=== PATIENT | male | born 1960 | race Caucasian/White ===

== ENCOUNTER 2019-12-02 20:06 | Inpatient (IN) ==
[2019-12-02] MEDS ORDERED: NITROGLYCERIN 2% OINTMENT 30GM TUBE EXT STA (20:30)
--- NOTE | 2019-12-02 20:33 | Emergency Department Note ---
History of Present Illness General Chief complaint: Cardiac Assessment Stated complaint: CHEST DISCOMFORT,SOB,HIGH BLOOD PRESSURE Time Seen by Provider: 12/02/19 20:22 Source: patient, family (), RN notes reviewed and old records reviewed Mode of arrival: ambulatory Limitations: no limitations History of Present Illness Provider complaint: Chest pain Onset (ago): week(s) 2 Location: chest Radiation: back Severity: moderate Pain Consistency: + now resolved Current Pain Intensity: 0 Quality: + aching Relieved By: + immobilization Exacerbated By: + movement Associated symptoms: no cough, no diaphoresis, no fever/chills, no headaches, no malaise, no nausea/vomiting, no seizure and no shortness of breath Treatments prior to arrival: aspirin This is a 59-year-old male who presents emergency department with a two-week history of chest pressure pain with exertion. Patient first noticed it approximately 2 weeks ago when he was mowing his lawn. He reports he began having chest pain when that was happening. He noticed when he stopped the chest pain went away. He has had several more episodes including 3 today. Upon arrival to the emergency department the patient has no pain. He went to [facility] however they did not have an EKG machine and sent him to the emergency department. He describes the pain as a burning sensation with radiati on into his back. He reports rest makes the pain go away. Home Medications Home Medications Medication Instructions Recorded Confirmed Type Dynamine Suppliment 1 dose PO DIRECTED PRN 12/02/19 12/02/19 History Essential Oils 1 applic TOPICAL DIRECTED PRN 12/02/19 12/02/19 History activated charcoal [CharcoCaps] 0 mg PO DAILY PRN 12/02/19 12/02/19 History multivitamin 1 tab PO DAILY 12/02/19 12/02/19 History Allergies Allergy/AdvReac Type Severity Reaction Status Date / Time No Known Allergies Allergy Verified 12/02/19 20:59 Past Med/Surg History Social History Preferred Language: Syriac Communication Ability: Effective Server Administrator Required: No Beliefs That Will Affect Care: None Current Living Situation: Spouse Other Information That Helps Us Care for You: No Feels Safe at Home: Yes Safety Concerns: Feels Safe At This Time Smoking Status: Never smoker Do You Dip or Chew Tobacco: No ; Second Hand Exposure: No ; Hx Alcohol Use: No Hx Substance Use: No Review of Systems A total of 10 systems reviewed and were otherwise negative Physical Exam Vital Signs Vital Signs - 24 hr 12/02/19 20:14 Temperature 37.1 C Temperature Source Oral Pulse Rate 97 H Respiratory Rate 18 Respiratory Effort / Characteristics Normal for Patient Blood Pressure 202/106 H Blood Pressure Mean 138 Blood Pressure Position Sitting Pulse Oximetry 97 Oxygen Delivery Method Room Air Sepsis Recent Fever Within 48 Hours No Sepsis New/Unexplained Change in Mental Status No Sepsis Action Taken by Nursing No Action Required VITAL SIGNS - Vital signs and nursing notes were reviewed. GENERAL - 59-year-old male appearing stated age who is in no acute distress. Communicates well with provider and answers questions appropriately. SKIN - Without rashes. HEAD - NC/AT. EYES - PERRL with EOMI bilaterally. Sclera anicteric. Palpebral conjunctiva pink and moist with no injection noted. EARS - No deformities of external structures noted on gross examination bilaterally. No pain elicited with palpation of the tragus bilaterally. External auditory canals without discharge or otorrhea. Tympanic membranes pearly lewis without retraction or bulging. No fluid or purulent material visualized behind the TM. Handle of malleus, umbo, cone of light, pars tensa/flaccid all easily visualized. NOSE - Midline and without cyanosis. No epistaxis or purulent drainage noted. Septum midline without deviation or septal hematoma noted. MOUTH/OROPHARYNX - Without perioral cyanosis. Buccal mucosa pink and moist and without leukoplakia. Tongue midline with equal elevation of palate bilaterally. No tonsillar hypertrophy, erythema, or exudates noted. dentition noted. NECK - Neck with FROM. Supple to palpation. lymphadenopathy noted. No nuchal rigidity. LUNGS - Chest wall symmetric without accessory muscle use, intercostals retractions, or central cyanosis. Normal vesicular breath sounds CTA B/L. No whe ezes, rales, or rhonchi appreciated. CARDIAC - RRR with S1/S2. No murmur, rubs, or gallops appreciated. ABDOMEN - Abdominal contour without pulsations or visible masses. BS normoactive all four quadrants. No tenderness, palpable masses, hepatosplenomegaly, or ascites noted. EXTREMITIES - No clubbing or peripheral cyanosis. No pretibial edema present. +3/5 radial, posterior tibial, and dorsalis pedis pulses palpated throughout. +5/5 strength noted in UE/LE bilaterally. NEUROLOGIC - Cranial nerves II through XII grossly intact. Sensory intact to light touch throughout. Patellar reflexes +2/4. PSYCH - A&Ox3 and cooperates fully with examiner. Pt is very pleasant and interacts well with examiner. Course Administered Medications Aspirin (Ecotrin Ectab) 81 mg PO QAM [facility] Stop: 01/02/20 08:59 Last Admin: 12/04/19 09:09 Dose: 81 mg Documented by: [id number] Admin: 12/03/19 08:09 Dose: 81 mg Documented by: [id number] Atorvastatin Calcium (Lipitor) 40 mg PO QA [facility] Stop: 01/03/20 08:59 Last Admin: 12/04/19 09:08 Dose: 40 mg Documented by: [id number] Metoprolol Tartrate (Lopressor) 12.5 mg PO BID [facility] Stop: 01/02/20 20:59 Last Admin: 12/04/19 09:30 Dose: 12.5 mg Documented by: [id number] Admin: 12/03/19 20:10 Dose: 12.5 mg Documented by: [id number] Ticagrelor (Brilinta) 90 mg PO BID [facility] Stop: 01/02/20 20:59 Last Admin: 12/04/19 09:08 Dose: 90 mg Documented by: [id number] Admin: 12/03/19 20:09 Dose: 90 mg Documented by: [id number] Discontinued Medications Aspirin (Aspirin) 162 mg PO NOW STA Stop: 12/02/19 22:16 Last Admin: 12/02/19 22:42 Dose: 162 mg Documented by: [id number] Enoxaparin Sodium (Lovenox) 80 mg SQ BID [facility] Stop: 01/02/20 10:59 Last Admin: 12/03/19 11:45 Dose: 80 mg Documented by: [id number] Enoxaparin Sodium (Lovenox) 70 mg SQ ONE ONE Stop: 12/03/19 01:01 Last Admin: 12/03/19 01:53 Dose: 70 mg Documented by: [id number] Eptifibatide (Integrilin (Correctional Counselor Use Only)) Confirm Administered Dose 20 mg IV .STK-MED ONE Stop: 12/03/19 13:43 Last Admin: 12/03/19 14:05 Dose: 6.8 ml Documented by: [id number] Eptifibatide (Integrilin (Correctional Counselor Use Only)) Confirm Administered Dose 20 mg IV .STK-MED ONE Stop: 12/03/19 14:12 Last Admin: 12/03/19 14:31 Dose: 6.8 ml Documented by: [id number] Eptifibatide (Integrilin (Correctional Counselor Use Only)) Confirm Administered Dose 75 mg .ROUTE .STK-MED ONE Stop: 12/03/19 14:23 Last Increment: 12/03/19 14:31 Dose: 12 mg Documented by: [id number] Fentanyl Citrate (Fentanyl Citrate) Confirm Administered Dose 100 mcg .ROUTE .STK-MED ONE Stop: 12/03/19 12:41 Last Increment: 12/03/19 14:05 Dose: 75 mcg Documented by: [id number] Heparin Sodium (Porcine) (Heparin Iv Bolus (Correctional Counselor Use Only)) Confirm Administered Dose 10,000 units .ROUTE .STK-MED ONE Stop: 12/03/19 12:41 Last Admin: 12/03/19 14:05 Dose: Not Given Documented by: [id number] Heparin Sodium/Sodium Chloride (Heparin/Nss 1000 Unit/500ml Flush Bag) Confirm Administered Dose 3,000 units IV .STK-MED ONE Stop: 12/03/19 12:41 Last Admin: 12/03/19 13:02 Dose: 3,000 units Documented by: [id number] Eptifibatide (Integrilin) 75 mg in 100 mls @ 11.392 mls/hr IV .[id number] [facility]; Protocol Stop: 12/03/19 19:00 Last Infusion: 12/03/19 19:07 Dose: 0 mcg/kg/min, 0 mls/hr Documented by: [id number] Cosigned by: [id number] Admin: 12/03/19 15:32 Dose: 2 mcg/kg/min, 11.4 mls/hr Documented by: [id number] Cosigned by: [id number] Sodium Chloride (Nss 1000ml) 1,000 mls @ 100 mls/hr IV .Q10H [facility] Stop: 12/03/19 19:59 Last Infusion: 12/03/19 22:52 Dose: 0 mls/hr Documented by: [id number] Admin: 12/03/19 15:32 Dose: 100 mls/hr Documented by: [id number] Metoprolol Succinate (Toprol Xl) 50 mg PO NOW [facility] Stop: 12/02/19 22:16 Last Admin: 12/02/19 22:42 Dose: 50 mg Documented by: [id number] Metoprolol Succinate (Toprol Xl) 50 mg PO [facility] Stop: 01/02/20 08:59 Last Admin: 12/03/19 08:07 Dose: 50 mg Documented by: [id number] Midazolam HCl (Versed) Confirm Administered Dose 2 mg .ROUTE .STK-MED ONE Stop: 12/03/19 12:41 Last Admin: 12/03/19 14:05 Dose: 2 mg Documented by: [id number] Miscellaneous (Stop Order) 1 ea N/A ONE ONE Stop: 12/03/19 19:01 Last Admin: 12/03/19 19:07 Dose: 1 ea Documented by: [id number] Nicardipine HCl (Cardene) Confirm Administered Dose 25 mg .ROUTE .STK-MED ONE Stop: 12/03/19 12:41 Last Admin: 12/03/19 13:02 Dose: 25 mg Documented by: [id number] Nitroglycerin (Nitro-Bid 2%) 1 inch EXT NOW [facility] Stop: 12/02/19 20:31 Last Admin: 12/02/19 20:50 Dose: 1 inch Documented by: [id number] Nitroglycerin/Dextrose (Nitroglycerin/D5w 100 Mcg/Ml 20ml Syringe) Confirm Administered Dose 2,000 mcg .ROUTE .STK-MED ONE Stop: 12/03/19 12:50 Last Admin: 12/03/19 13:03 Dose: 2,000 mcg Documented by: [id number] Potassium Chloride (Klor-Con M20) 40 meq PO NOW [facility] Stop: 12/02/19 21:19 Last Admin: 12/02/19 21:51 Dose: Not Given Documented by: [id number] Ticagrelor (Brilinta) Confirm Administered Dose 180 mg PO .STK-MED ONE Stop: 12/03/19 14:21 Last Admin: 12/03/19 14:31 Dose: 180 mg Documented by: [id number] Medical Decision Making Differential Diagnosis Cardiac ischemia, aortic dissection, pulmonary embolism, pneumothorax, pneumonia, pericarditis, myocarditis, esophageal rupture, GERD, cholecystitis, pancreatitis, musculoskeletal, as well as other pathologies. Medical Records Attestation: I reviewed the patient's medical records. Home Medications Current Medication List: was personally reviewed by me Laboratory Data Attestation: I reviewed the patient's lab results. Result diagrams: 12/02/19 20:40 12/03/19 04:04 Lab Results 12/02/19 12/02/19 12/02/19 Range/Units 20:40 20:40 20:40 WBC 8.64 (4.8-10.8) K/uL RBC 5.11 (4.7-6.1) M/uL Hgb 15.2 (14.0-18.0) g/dL Hct 44.4 (42-52) % MCV 86.9 (80-100) fL MCH 29.7 (25-34) pg MCHC 34.2 (32-36) g/dL RDW Std Deviation 40.4 (36.4-46.3) fL RDW Coeff of Mary 12.6 (11.5-14.5) % Plt Count 138 (130-400) K/uL MPV 12.8 H (7.4-10.4) fL Immature Gran % (Auto) 0.2 % Neut % (Auto) 73.1 % Lymph % (Auto) 17.4 % [place] % (Auto) 9.0 % Eos % (Auto) 0.2 % Baso % (Auto) 0.1 % Neut # (Auto) 6.31 (1.4-6.5) K/uL Lymph # (Auto) 1.50 (1.2-3.4) K/uL [place] # (Auto) 0.78 H (0.11-0.59) K/uL Eos # (Auto) 0.02 (0-0.5) K/uL Baso # (Auto) 0.01 (0-0.2) K/uL Immature Gran # (Auto) 0.02 (0.00-0.02) K/uL PT 10.5 (9.0-12.0) Seconds INR 1.0 (0.9-1.1) APTT 26.5 (21.0-31.0) Seconds PTT Ratio 0.9 Sodium 139 (136-145) mmol/L Potassium 3.4 L (3.5-5.1) mmol/L Chloride 107 (98-107) mmol/L Carbon Dioxide 25 (21-32) mmol/L Anion Gap 8.0 (3-11) BUN 13 (7-18) mg/dl Creatinine 1.08 (0.6-1.4) mg/dl Est Cr Clr Drug Dosing 68.1 ml/min Est GFR ( Amer) 87.8 Est GFR (Non-Af Amer) 75.8 BUN/Creatinine Ratio 12.4 (10-20) Glucose 108 H (70-99) mg/dl Calcium 9.2 (8.5-10.1) mg/dl Total Bilirubin 0.6 (0.2-1) mg/dl AST 23 (15-37) U/L ALT 42 (12-78) U/L Alkaline Phosphatase 80 (45-117) U/L Total Creatine Kinase 154 (39-308) U/L CK-MB (CK-2) 1.6 (0.5-3.6) ng/ml CK/CKMB % Calc 1.0 (0-3.0) Troponin I 0.201 H* (0-0.045) ng/ml Total Protein 7.8 (6.4-8.2) gm/dl Albumin 4.5 (3.4-5.0) gm/dl Globulin 3.3 (2.5-4.0) gm/dl Albumin/Globulin Ratio 1.3 (0.9-2) Lipase 124 (73-393) U/L Imaging Data Radiologist's Impression: [place], [place] [phone] XRay Report Patient: CHAS FRANKLIN Date: 12/02/19 MR#: [id number] [facility] Acct ID:[id number]: Date: [address] [place] [address] Zip: [place] [address] Age: 59Location: ED Sex: M Room/Bed: Att Phy:Diagnosis: CHEST DISCOMFORT,SOB,HIGH BLOOD PRESSURE Grace Phy: PCP,NOService Date: 12/02/19 Fam Phy:Interpreting Phy: Heriberto Rivera MD Admit Phy: Ordering Phy: Sampson Kim MD cc: ~ SINGLE VIEW CHEST CLINICAL HISTORY: Atypical chest pain. FINDINGS: An AP, portable, upright chest radiograph is obtained. No prior studies are available for comparison at the time of dictation. The cardiomediastinal silhouette is unremarkable. The lungs and pleural spaces are clear. No pneumothorax is seen. The bony thorax is grossly intact. IMPRESSION: No active disease in the chest. ACT 112: Negative or not required by law. Electronically signed by: Heriberto Rivera M.D. 12/02/2019 8:58 PM Dictated: 12/02/192056 Transcribed: 12/02/192056 ECG Data Attestation: I personally reviewed and interpreted this ECG as follows: Indication: + chest pain Rate (beats per minute): 99 Rhythm: + sinus with SA ECG Intervals/blocks: + Right Bundle branch block and + Normal QT-c (467) ECG [place]: + Normal ECG ST segments: + ST depression (anterior) Comparison ECG Date: no prior available Additional Comments: Posterior EKG shows a normal sinus rhythm with sinus arrhythmia, nonspecific intraventricular block no ST elevation or depression QTC is 452 ventricular rate is 94. Blood Pressure Blood Pressure Findings: Elevated blood pressure Blood Pressure Disposition: further management by hospitalist [facility] Narrative This is a 59-year-old male who presents emergency department complaining exertional chest pain. Patient is pain-free in the emergency department however his blood pressure is significantly elevated. For this reason he was given both Nitropaste as well as metoprolol. The patient's troponin was also elevated. Due to his multiple risk factors I did discuss the case with the hospitalist service who did agree to admit the patient. Patient was seen and evaluated as above in room B6. Review was performed of nursing notes and vital signs. I did review pertinent previous visits and patient history. After obtaining a thorough history and physical examination the above work up was performed. An order was placed for continuous cardiac monitoring. The monitor shows a rate of 97 with Normal Sinus rhythm. The patient was evaluated during the global COVID-19 pandemic, and that diagnosis was suspected/considered upon their initial presentation. Their ev aluation, treatment and testing was consistent with current guidelines for patients who present with complaints or symptoms that may be related to COVID- 19. Impression & Plan Chest pain, Non-ST elevation [place] (NSTEMI) Discharge Plan Visit Data *Final* Discharge Date/Time: 12/03/19 00:00 Chief Complaint: Cardiac Assessment Stated Complaint: CHEST DISCOMFORT,SOB,HIGH BLOOD PRESSURE ED Provider: Sampson Kim Discharge Problem: Chest pain, Non-ST elevation [place] (NSTEMI) Patient Disposition: Admitted As Inpatient Discharge Instructions Interventions: ED Discharge Assessment Last Done: 12/03/19 00:00 Discharge Problem: Chest pain Qualifiers: Chest pain type: unspecified Qualified Code(s): R07.9 - Chest pain, unspecified
[2019-12-02 20:56] LABS: Basophils # (auto) 0.01 K/uL (0-0.2); Basophils % (auto) 0.1 %; Eosinophils # (auto) 0.02 K/uL (0-0.5); Eosinophils % (auto) 0.2 %; Hematocrit (blood only) 44.4 % (42-52); Hemoglobin 15.2 g/dL (14.0-18.0); Immature Granulocytes # (auto) 0.02 K/uL (0.00-0.02); Immature Granulocytes % (auto) 0.2 %; Lymphocytes % (auto) 17.4 %; Mean Corpuscular Hemoglobin 29.7 pg (25-34); Mean Corpuscular Hgb Conc 34.2 g/dL (32-36); Mean Corpuscular Volume 86.9 fL (80-100); Mean Platelet Volume 12.8 fL (7.4-10.4); Monocytes # (auto) 0.78 K/uL (0.11-0.59); Neutrophils # (auto) 6.31 K/uL (1.4-6.5); Neutrophils % (auto) 73.1 %; Platelet Count 138 K/uL (130-400); RDW Coefficient of Variation 12.6 % (11.5-14.5); RDW Standard Deviation 40.4 fL (36.4-46.3); Red Blood Count 5.11 M/uL (4.7-6.1); White Blood Count 8.64 K/uL (4.8-10.8)
--- NOTE | 2019-12-02 20:59 | XRay Report ---
SINGLE VIEW CHEST CLINICAL HISTORY: Atypical chest pain. FINDINGS: An AP, portable, upright chest radiograph is obtained. No prior studies are available for c omparison at the time of dictation. The cardiomediastinal silhouette is unremarkable. The lungs and pleural spaces are clear. No pneumothorax is seen. The bony thorax is grossly intact. IMPRESSION: No active disease in the chest. ACT 112: Negative or not required by law. Electronically signed by: Heriberto Rivera M.D. 12/02/2019 8:58 PM
[2019-12-02 21:08] LABS: Partial Thromboplastin Ratio 0.9; Partial Thromboplastin Time 26.5 Seconds (21.0-31.0); Prothrombin Time 10.5 Seconds (9.0-12.0)
[2019-12-02 21:17] LABS: Albumin Level 4.5 gm/dl (3.4-5.0); BUN Creatinine Ratio 12.4 (10-20); Calcium 9.2 mg/dl (8.5-10.1); Creatinine Clr Calc Pharmacy 68.1 ml/min; Est GFR (African American) 87.8; Est GFR (Non-African American) 75.8; Potassium 3.4 mmol/L (3.5-5.1)
[2019-12-02] MEDS ORDERED: POTASSIUM CHLORIDE 20 MEQ TABCR PO STA (21:18)
[2019-12-02 21:25] LABS: Albumin Globulin Ratio 1.3 (0.9-2); Bilirubin,Total 0.6 mg/dl (0.2-1); Creatine Kinase MB 1.6 ng/ml (0.5-3.6); Globulin 3.3 gm/dl (2.5-4.0); Total Protein 7.8 gm/dl (6.4-8.2); Troponin I 0.201 ng/ml (0-0.045)
[2019-12-02] MEDS ORDERED: ASPIRIN CHEW 324 MG PO STA (22:15)
[2019-12-02] MEDS ORDERED: METOPROLOL SUCC 50MG EXT REL TAB PO STA (22:15)
--- NOTE | 2019-12-02 22:32 | History & Physical Report ---
Date of Service December 02, 2019 Assessment & Plan (1) NSTEMI (non-ST elevated myocardial infarction): - took 2 baby aspirin prior to arriving in ED; given 124 mg additional aspirin upon arrival. - metoprolol succinate 50 mg in ED; - EKG showing ST segment depressions in V3-V6 - Troponin 0.201 on admission - therapeutic lovenox 1mg/kg - mild hypokalemia at 3.4; repleted with oral potassium - cardiology consult - Exercise stress echo ordered for AM - trending trops - New medications: Daily 81 mg ASA, Metoprolol succ 50 mg daily DVT ppx: therapeutic lovenox FEN/GI: NPO Dispo: PCU Code Status: Full Code History of Present Illness 59 yo M with no PMH presenting to the ED for 2 weeks of worsening chest pain. States the episodes started as being chest discomfort while mowing the lawn and being active, and have progressed to the point of occurring while he is sitting at rest. He denies any radiation of the pain to the left arm, neck or back. He attest to some shortness of breath with the pain and describes the pain as burning in his central chest by his sternum. The episode today occured while he was out camping with friends, and during the event a friend measured his blood pressure and found to be "very elevated" and advised him to come to the ER. Family history significant for multiple first degree family members with HTN, [place], DM2. Pt recently suffered a chainsaw injury to his left knee and hasn't had a Tdap for more than 10 years, will need one on discharge. Primary Care Provider: NO PCP Allergies Allergy/AdvReac Type Severity Reaction Status Date / Time No Known Allergies Allergy Verified 12/02/19 20:59 Home Medications Home Medications Medication Instructions Recorded Confirmed Type Dynamine Suppliment 1 dose PO DIRECTED PRN 12/02/19 12/02/19 History Essential Oils 1 applic TOPICAL DIRECTED PRN 12/02/19 12/02/19 History activated charcoal [CharcoCaps] 0 mg PO DAILY PRN 12/02/19 12/02/19 History multivitamin 1 tab PO DAILY 12/02/19 12/02/19 History Past Med/Surg History Social History Preferred Language: Indonesian Communication Ability: Effective 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 Beliefs That Will Affect Care: None Current Living Situation: Spouse Other Information That Helps Us Care for You: No Feels Safe at Home: Yes Safety Concerns: Feels Safe At This Time Smoking Status: Never smoker Do You Dip or Chew Tobacco: No ; Second Hand Exp osure: No ; Hx Alcohol Use: No Hx Substance Use: No Review of Systems Constitutional: no fever, no chills, no body aches and no fatigue Respiratory: no cough and no dyspnea Cardiovascular: + chest pain and + dyspnea; no edema Gastrointestinal: no abdominal pain, no nausea, no vomiting, no constipation and no diarrhea/loose stools Physical Exam Constitutional: cooperative; no acute distress and not ill appearing Neck: normal visual inspection Respiratory: normal respiratory effort and able to speak in complete sentences; no respiratory distress, no labored breathing, no retractions, no cough and no audible wheezes Auscultation: lungs clear to auscultation bilaterally; no crackles, no rales, no rhonchi and no wheezes Cardiovascular: Rate/Rhythm: regular rate and regular rhythm Heart Sounds: normal S1 and normal S2; no gallop, no murmur and no cardiac rub Vessels: posterior tibial pulses present Extremities: no pedal edema and no edema Gastrointestinal (Abdomen): Inspection/Auscultation: abdomen normal to insp ection and normal bowel sounds; abdomen not distended Percussion/Palpation: abdomen soft; abdomen nontender, no guarding, abdomen not rigid and no abdominal mass Results & Data Results & Data ([facility]) Vital Signs (Past 12 Hours) Vital Signs Temp Pulse Resp BP Pulse Ox 12/02/19 20:30 98 12/02/19 20:14 37.1 C 97 H 18 202/106 H 97 Vital Signs Temp Pulse Pulse Resp BP BP Pulse Ox 12/03/19 00:15 36.8 C 65 18 138/86 98 12/02/19 23:30 62 21 133/87 97 12/02/19 23:00 64 12 144/90 H 98 12/02/19 22:30 76 15 161/100 H 98 12/02/19 22:00 94 H 15 189/117 H 98 12/02/19 21:30 93 H 17 179/102 H 99 12/02/19 21:00 99 H 14 183/104 H 100 12/02/19 20:30 95 H 13 192/135 H 98 12/02/19 20:14 37.1 C 97 H 18 202/106 H 97 Intake and Output 12/02/19 12/02/19 12/03/19 14:59 22:59 06:59 Other: Weight 70.8 kg 71.2 kg Patient Weight 12/03/19 06:59 Weight 71.2 kg Laboratory Results WBC 8.64 K/uL (4.8-10.8) 12/02/19 20:40 RBC 5.11 M/uL (4.7-6.1) 12/02/19 20:40 Hgb 15.2 g/dL (14.0-18.0) 12/02/19 20:40 Hct 44.4 % (42-52) 12/02/19 20:40 MCV 86.9 fL (80-100) 12/02/19 20:40 MCH 29.7 pg (25-34) 12/02/19 20:40 MCHC 34.2 g/dL (32-36) 12/02/19 20:40 RDW Std Deviation 40.4 fL (36.4-46.3) 12/02/19 20:40 RDW Coeff of Mary 12.6 % (11.5-14.5) 12/02/19 20:40 Plt Count 138 K/uL (130-400) 12/02/19 20:40 MPV 12.8 fL (7.4-10.4) H 12/02/19 20:40 Immature Gran % (Auto) 0.2 % 12/02/19 20:40 Neut % (Auto) 73.1 % 12/02/19 20:40 Lymph % (Auto) 17.4 % 12/02/19 20:40 [place] % (Auto) 9.0 % 12/02/19 20:40 Eos % (Auto) 0.2 % 12/02/19 20:40 Baso % (Auto) 0.1 % 12/02/19 20:40 Neut # (Auto) 6.31 K/uL (1.4-6.5) 12/02/19 20:40 Lymph # (Auto) 1.50 K/uL (1.2-3.4) 12/02/19 20:40 [place] # (Auto) 0.78 K/uL (0.11-0.59) H 12/02/19 20:40 Eos # (Auto) 0.02 K/uL (0-0.5) 12/02/19 20:40 Baso # (Auto) 0.01 K/uL (0-0.2) 12/02/19 20:40 Immature Gran # (Auto) 0.02 K/uL (0.00-0.02) 12/02/19 20:40 PT 10.5 Seconds (9.0-12.0) 12/02/19 20:40 INR 1.0 (0.9-1.1) 12/02/19 20:40 APTT 26.5 Seconds (21.0-31.0) 12/02/19 20:40 PTT Ratio 0.9 12/02/19 20:40 Sodium 139 mmol/L (136-145) 12/02/19 20:40 Potassium 3.4 mmol/L (3.5-5.1) L 12/02/19 20:40 Chloride 107 mmol/L (98-107) 12/02/19 20:40 Carbon Dioxide 25 mmol/L (21-32) 12/02/19 20:40 Anion Gap 8.0 (3-11) 12/02/19 20:40 BUN 13 mg/dl (7-18) 12/02/19 20:40 Creatinine 1.08 mg/dl (0.6-1.4) 12/02/19 20:40 Est Cr Clr Drug Dosing 68.1 ml/min 12/02/19 20:40 Est GFR ( Amer) 87.8 12/02/19 20:40 Est GFR (Non-Af Amer) 75.8 12/02/19 20:40 BUN/Creatinine Ratio 12.4 (10-20) 12/02/19 20:40 Glucose 108 mg/dl (70-99) H 12/02/19 20:40 Calcium 9.2 mg/dl (8.5-10.1) 12/02/19 20:40 Total Bilirubin 0.6 mg/dl (0.2-1) 12/02/19 20:40 AST 23 U/L (15-37) 12/02/19 20:40 ALT 42 U/L (12-78) 12/02/19 20:40 Alkaline Phosphatase 80 U/L (45-117) 12/02/19 20:40 Total Creatine Kinase 154 U/L (39-308) 12/02/19 20:40 CK-MB (CK-2) 1.6 ng/ml (0.5-3.6) 12/02/19 20:40 CK/CKMB % Calc 1.0 (0-3.0) 12/02/19 20:40 Troponin I 0.201 ng/ml (0-0.045) H* 12/02/19 20:40 Total Protein 7.8 gm/dl (6.4-8.2) 12/02/19 20:40 Albumin 4.5 gm/dl (3.4-5.0) 12/02/19 20:40 Globulin 3.3 gm/dl (2.5-4.0) 12/02/19 20:40 Albumin/Globulin Ratio 1.3 (0.9-2) 12/02/19 20:40 Lipase 124 U/L (73-393) 12/02/19 20:40 Supervising Physician Co-Signing Physician Notes Attending addendum: I have physically seen this patient, have supervised the medical residents activities, and agree with the H&P unless as otherwise noted. Assessment and Plan: Non-STEMI- The patient will be admitted to telemetry for serial cardiac enzymes, serial EKG's, cardiac rhythm monitoring and a 2-D echocardiogram with Dopplers. Patient reportedly took 2 baby aspirin prior to coming to the ED. Will be given additional 2 baby aspirin now, and then 81 mg every morning. EKG with ST depressions in leads V3-V6 Placed on Nitropaste 1 inch anterior chest wall every 6 hour. Give metoprolol succinate 50 mg p.o. now then [address] on high-dose statin atorvastatin 80 mg daily Heparin per standard protocol, keeping bolus less than 5000. Consult cardiology. Patient will likely need cardiac catheterization. Hypokalemia- Potassium 3.4 upon admission, and will be given Klor-Con 40 mEq p.o. NSS + KCl 20 mEq at 80 mils per hour. Repeat laboratories in a.m. Remaining orders and notations as noted. Resident Activity Tracking Resident Involvement: Resident Care Provided Care Provided: [facility] Medicine
[2019-12-03] MEDS ORDERED: MoRPHine SULFATE 2 MG/ML CARP IV PRN (00:27)
[2019-12-03] MEDS ORDERED: DIPHTHERIA/TETANUS/PERTUSSIS 0.5 ML SYR/VIAL IM ONE (00:27)
[2019-12-03] MEDS ORDERED: ACETAMINOPHEN 325 MG TAB PO PRN (00:27)
[2019-12-03] MEDS ORDERED: ALUMINUM/MAGNESIUM SUSP 30 ML UDC PO PRN (00:27)
[2019-12-03] MEDS ORDERED: NITROGLYCERIN SL 0.4 MG/TAB TAB SL PRN (00:27)
[2019-12-03] MEDS ORDERED: ENOXAPARIN 80 MG/0.8 ML SYR SQ SCH ×2 (00:45→11:00)
[2019-12-03] MEDS ORDERED: ENOXAPARIN 80 MG/0.8 ML SYR SQ ONE (01:00)
[2019-12-03 04:55] LABS: BUN Creatinine Ratio 12.6 (10-20); Calcium 8.5 mg/dl (8.5-10.1); Creatinine Clr Calc Pharmacy 70.7 ml/min; Est GFR (African American) 91.9; Est GFR (Non-African American) 79.3; Potassium 4.1 mmol/L (3.5-5.1)
[2019-12-03] MEDS: METOPROLOL SUCC 50MG EXT REL TAB PO SCH (08:07)
[2019-12-03] MEDS: ASPIRIN 81 MG ECTAB PO SCH (08:09)
--- NOTE | 2019-12-03 12:15 | Cardiology Consultation ---
Date of Consultation December 03, 2019 Assessment & Plan (1) Unstable angina pectoris due to coronary arteriosclerosis: -classic history with dynamic EKG changes and an elevated troponin. -agree with therapeutic Lovenox -agree with metoprolol succinate -urgent cardiac catheterization, Dr. Jefferson aware (2) Hypercholesterolemia: -the would start high-intensity statin History of Present Illness Attending Physician: Mani Colón History of Present Illness Mr. King is a 59-year-old male admitted yesterday with a chest pain syndrome. This consultation was ordered to assist in his cardiac management. Patient claims use in his usual state of health until approximately 2 weeks prior to presentation. While cutting his lawn, he had the abrupt onset of a substernal chest burning and associated shortness of breath. Patient had to stop his activity and sat down to rest. His discomfort resolved after approximately 5 minutes. The patient did well until approximately 1 week prior to presentation when he had a similar episode walking home from work. Again, this resolved with rest. On Thursday of this past week, the patient had another episode while cutting his grass. Yesterday, the patient was at a picnic and had 3 separate episodes of his substernal chest burning with associated shortness of breath. These episodes occurred at rest. He became quite concerned and brought his symptoms the attention of a nurse who was present at the picnic. She checked his blood pressure and found to be 220/110. His heart rate was elevated at approximately 100 beats per minute. He took 2 baby strength aspirin tablets and decided to proceed to the emergency room for further care. Workup in the emergency room noted a mildly elevated troponin 0.201 and his EKG noted significant ST depression in the anterior leads. Hospitalization was recommended. Currently, patient is resting comfortably in bed without complaints. Past medical and surgical history 1. Skin graft, right hand-childhood 2. 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 Mother had bypass surgery performed at the age of 81. A brother had an WI at the age of 57. Review of systems A 10 point review of systems was negative except for that described above. Allergies Allergy/AdvReac Type Severity Reaction Status Date / Time No Known Allergies Allergy Verified 12/02/19 20:59 Home Medications Home Medications Medication Instructions Recorded Confirmed Type Dynamine Suppliment 1 dose PO DIRECTED PRN 12/02/19 12/02/19 History Essential Oils 1 applic TOPICAL DIRECTED PRN 12/02/19 12/02/19 History activated charcoal [CharcoCaps] 0 mg PO DAILY PRN 12/02/19 12/02/19 History multivitamin 1 tab PO DAILY 12/02/19 12/02/19 History Patient History Social History Preferred Language: Persian Communication Ability: Effective Web Marketing Coordinator Required: No Beliefs That Will Affect Care: None Current Living Situation: Spouse Other Information That Helps Us Care for You: No Feels Safe at Home: Yes Safety Concerns: Feels Safe At This Time Smoking Status: Never smoker Do You Dip or Chew Tobacco: No ; Second Hand Exposure: No ; Hx Alcohol Use: No Hx Substance Use: No Physical Exam Physical Exam: In general this is a well-developed well-nourished white male in no acute distress. HEENT exam is negative. Neck is supple with full carotid upstrokes. There are no carotid bruits. Jugular venous pressure is flat at 90. There is no thyromegaly. Cardiovascular exam reveals a regular rhythm with a normal S1 and S2. No S3, S4, or murmurs are noted. Lungs are clear without rales, rhonchi, or wheezes. Abdomen is soft and nontender without bruits. Extremities reveal intact radial artery and posterior tibial pulses bilaterally. There is no peripheral edema. Results & Data ([facility]) Vital Signs (Past 12 Hours) Vital Signs Temp Pulse Resp BP Pulse Ox 12/03/19 11:33 36.5 C 74 18 122/64 93 12/03/19 07:45 36.9 C 63 18 118/74 95 12/03/19 04:00 36.8 C 61 16 126/69 98 12/03/19 00:15 36.8 C 65 18 138/86 98 Laboratory Results CBC notes hemoglobin 15.2, hematocrit 44.4, white count 8.64, and platelet count of 200223. Electrolytes show sodium of 142, potassium 4.1, chloride 110, bicarb 20, BUN 13, creatinine 1.04, a glucose of 100. Initial troponin was 0.201 with a follow-up value of 0.676. LDL cholesterol is 149 with an HDL of 44. Diagnostic Findings Initial EKG notes sinus rhythm with a right bundle-branch block and anterior ST depression. Follow-up tracing notes sinus rhythm with right bundle-branch block and resolution of the anterior ST changes. Chest x-ray shows no acute disease. PG Care Time/CCT Total # of Minutes Spent Total Time Spent with Patient: Total time spent is greater than 50% in coordination of care (as documented) at patient's floor/unit and/or counseling patient: Coding Level of Care Code 88585 Office/OBS Consult Lvl 5 Diagnoses Unstable angina pectoris due to coronary arteriosclerosis I25.110 Hypercholesterolemia E78.00
[2019-12-03] MEDS ORDERED: NiCARDipine HCL INJ 2.5 MG/ML 10 ML AMP ONE (12:40)
[2019-12-03] MEDS ORDERED: MIDAZOLAM HCL 1 MG/ML 2ML VIAL ONE (12:40)
[2019-12-03] MEDS ORDERED: HEPARIN (PORCINE) 1000 UNIT/ML 10 ML (CATH LAB USE ONLY) ONE (12:40)
[2019-12-03] MEDS ORDERED: fentaNYL citrate 100 MCG/2 ML VIAL ONE (12:40)
[2019-12-03] MEDS ORDERED: NITROGLYCERIN/D5W 100MCG/ML 20ML SYR ONE (12:49)
--- NOTE | 2019-12-03 13:02 | Pre Anesthesia Assessment ---
Date of Service December 03, 2019 Pre Sedation Assessment Vital Signs Temp Pulse Pulse Resp BP BP Pulse Ox 12/03/19 11:33 97.7 F 74 18 122/64 93 12/03/19 07:45 98.4 F 63 18 118/74 95 12/03/19 04:00 98.2 F 61 16 126/69 98 12/03/19 00:15 98.2 F 65 18 138/86 98 12/02/19 23:30 62 21 133/87 97 12/02/19 23:00 64 12 144/90 H 98 12/02/19 22:30 76 15 161/100 H 98 12/02/19 22:00 94 H 15 189/117 H 98 12/02/19 21:30 93 H 17 179/102 H 99 12/02/19 21:00 99 H 14 183/104 H 100 12/02/19 20:30 95 H 13 192/135 H 98 12/02/19 20:14 98.8 F 97 H 18 202/106 H 97 Cardiovascular RRR, no murmur, no edema Respiratory normal respiratory effort, lungs clear to auscultation Pre-Sedation Airway Assessment Smoking Status: Never smoker Hx Sleep Apnea: No Hx Difficult Intubation: No Short, Thick Neck: No Thyromental Distance: > or= 3.5 Finger Breadths Oral Cavity: + WNL Mallampati Class: III ASA: ASA3 Procedure Planning Contraindications for Sedation: none Current Medications Reviewed: Yes Notes The planned sedation has been discussed with the patient. Informed Consent was obtained. I have identified the patient, determined the appropriateness of sedation and have assessed the patient immediately prior to the procedure. All medicine(s) and interventions are by my order.
[2019-12-03] MEDS ORDERED: EPTIFIBATIDE 2 MG/ML 10 ML VIAL (CATH LAB USE ONLY) IV ONE ×2 (13:42→14:11)
[2019-12-03] MEDS ORDERED: TICAGRELOR 90 MG TAB PO ONE (14:20)
[2019-12-03] MEDS ORDERED: EPTIFIBATIDE 0.75 MG/ML 75MG VIAL (CATH LAB USE ONLY) ONE (14:22)
--- NOTE | 2019-12-03 14:25 | Post Anesthesia Assessment ---
Date of Service December 03, 2019 Post Sedation Assessment Vital Signs Temp Pulse Pulse Resp BP BP Pulse Ox 12/03/19 11:33 97.7 F 74 18 122/64 93 12/03/19 07:45 98.4 F 63 18 118/74 95 12/03/19 04:00 98.2 F 61 16 126/69 98 12/03/19 00:15 98.2 F 65 18 138/86 98 12/02/19 23:30 62 21 133/87 97 12/02/19 23:00 64 12 144/90 H 98 12/02/19 22:30 76 15 161/100 H 98 12/02/19 22:00 94 H 15 189/117 H 98 12/02/19 21:30 93 H 17 179/102 H 99 12/02/19 21:00 99 H 14 183/104 H 100 12/02/19 20:30 95 H 13 192/135 H 98 12/02/19 20:14 98.8 F 97 H 18 202/106 H 97 Recovery Score Activity: Moves 4 extremities Respiration: Deep Breath/Cough Circulation: +/-20% PreAnes Value Consciousness: Fully Awake Oxygen Saturation: O2 needed for >90% Discharge Sedation Level of Care: Fast Track Phase II Post Sedation Plan On clinical assessment, the patient appears to have tolerated the sedation without complications. Patient is recovering as anticipated. Patient will continue to be monitored by nursing and may be discharged when sedation discharge criteria are met per below protocol. Upon Completions of procedure up to 15 minutes continue every 5 minute vital signs and the P.A.R. score; then discharge to a Phase I or Fast Track to Phase II per the following guidelines: * Discharge Patient to appropriate Phase II area if PAR is 8 or greater or return to pre- procedure baseline. The post - procedure orders will be as directed. * If PAR score is less than 8 or not return to pre-procedure baseline then patient will follow Phase I monitoring till PAR is reached for Phase II. The Phase I may be done in procedure room or may call to secure a Phase I area. * If naloxone or flumazenil are used for reversal, hold in Phase I for continued monitoring from when last reversal dose was given for a minimum of 60 minutes or longer pending the nurse and/or physician discretion of patient condition before discharge to Phase II. Please call the Sedation Physician to re-evaluate and complete post-note for discharge to Phase II area. Do NOT discharge from procedure sedation or Phase 1 until post- sedation evaluation note is complete by procedure /sedation MD Sedation Discharge Instructions to be given to the patient at discharge to home.
--- NOTE | 2019-12-03 14:32 | Electrocardiogram Report ---
Test Reason : Blood Pressure : / mmHG Vent. Rate : 099 BPM Atrial Rate : 099 BPM P-R Int : 118 ms QRS Dur : 128 ms QT Int : 364 ms P-R-T Axes : 067 032 020 degrees QTc Int : 467 ms Normal sinus rhythm with sinus arrhythmia Possible Left atrial enlargement Right bundle branch block Marked ST abnormality, possible anterior subendocardial injury Abnormal ECG No previous ECGs available Confirmed by Mervin Dale ([id number]) on 12/03/2019 2:31:42 PM Referred By: REFERRED SELF Confirmed By:Mervin Dale
--- NOTE | 2019-12-03 14:32 | Electrocardiogram Report ---
Test Reason : Blood Pressure : / mmHG Vent. Rate : 094 BPM Atrial Rate : 094 BPM P-R Int : 118 ms QRS Dur : 130 ms QT Int : 362 ms P-R-T Axes : 078 086 -02 degrees QTc Int : 452 ms Normal sinus rhythm with sinus arrhythmia Right bundle branch block Cannot rule out Septal infarct , age undetermined Abnormal ECG When compared with ECG of 02-DEC-2019 20:17, (unconfirmed) Anterior ST abnormality resolved Confirmed by Mervin Dale ([id number]) on 12/03/2019 2:32:20 PM Referred By: REFERRED SELF Confirmed By:Mervin Dale
--- NOTE | 2019-12-03 14:37 | Cardiac Catheterization ---
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 Cardiac Status Clinical evaluation leading to the procedure CAD Presenation: Non STEMI Anginal Classification: CCS IV Heart Failure: No Cardiogenic Shock within 24 Hours: No Cardiac Arrest within 24 Hours: No Imaging Studies Past 6 Months: Yes Stress Studies Past 6 Months: No Diagnostic Physicians Name: Reynaldo Jefferson MD Status: Urgent Closure Device Percutaneous Entry Location: Radial Closure Device: Radial Band Recommendations: PCI without planned CABG PCI Indication: PCI for high risk Non-TUCKER Lesion Segment Name: Distal RCA Culprit Artery: Yes Stenosis Prior to Rx (%): 95 Chronic Total Occlusion: No IVUS: No FFR: No Pre-Procedure GRABIEL Flow: 3 Previously Treated Lesion: No Lesion Complexity: Non-High/Non-C Lesion Length (mm): 15 Thrombus Present: Yes Bifurcation Lesion: Yes Guidewire Across Lesion: Stenosis Post-Procedure (%): 0 Post-Procedure GRABIEL Flow: 3 Devices(s) Deployed: Yes Yes Lesion #2 Segment Name: Right posterior AV branch Culprit Artery: No Stenosis Prior to Rx (%): 95 Chronic Total Occlusion: No IVUS: No FFR: No Pre-Procedure GRABIEL Flow: 3 Previously Treated Lesion: No Lesion Complexity: Non-High/Non-C Lesion Length (mm): 10 Thrombus Present: No Bifurcation Lesion: No Guidewire Across Lesion: Yes Stenosis Post-Procedure (%): 0 Post-Procedure GRABIEL Flow: 3 Devices(s) Deployed: Yes Intraprocedure Events Significant Disection: No Perforation: No Cardiac Cath Procedure Full Procedure Date December 03, 2019 Pre-Procedure Diagnosis Pre-Procedure Diagnosis: Non STEMI AUC Score AUC Score: 8 Post-Procedure Diagnosis Post-Procedure Diagnosis: Severe CAD, Successful PCI and Normal Intracardiac Pressures Procedure(s) Performed Procedure(s) Performed: Coronary Angiography, Left Heart Cath and Drug Eluting Stent Fingerprint Clerk Reynaldo Jefferson MD Oncology Technician(s) Tim Estimated Blood Loss Estimated Blood Loss: None Medication(s) Medication(s): Fentanyl, Integrilin, Lidocaine 1%, Nicardipine, Nitroglycerin and Versed Medication(s): Lovenox Summary of Findings Indication: High risk NSTEMI Access: 6 Fr right radial artery Catheters: [place], JR4 guide, pigtail Findings: LM -medium caliber vessel, luminal irregularity LAD -medium caliber vessel, calcified 40% proximal disease, 70% mid segment disease at takeoff of first diagonal. Small distal vessel extends to apex and gives off collaterals to occluded small right PDA. Proximal first diagonal with 80% focal stenosis. Small second diagonal occluded and fills retrograde via left to left collaterals Circumflex -small caliber. High first OM with 60 to 70% proximal stenosis. 50% stenosis in small circumflex just after takeoff of OM1. RCA -dominant, large caliber vessel, 95% acute distal RCA stenosis just before takeoff of right PDA, 95% focal stenosis in right posterior AV branch before takeoff of largest right PLB. Diffuse disease in small distal posterior lateral branches. Distal right PDA occluded and fills retrograde via [id number] collaterals LVEDP -13 -- PCI -- Antithrombotic therapy: Therapeutic Lovenox, Integrilin, ticagrelor Procedure: RCA cannulated with JR4 guide Counter Former 50 wire passed across lesion into distal right PLB Pro-water wire placed into right PDA Right posterior AV branch stenosis predilated with 2.5 compliant balloon Distal RCA stenosis predilated with 2.5 compliant balloon Dilated right PAV branch stenosis stented with 2.5 x 12 mm [place] drug-eluting stent Dilated distal RCA stented with 3.5 x 18 mm Larry ending just before takeoff of r ight PDA PAV Stent post-dilated with 2.5 noncompliant balloon Distal RCA stent postdilated with 3.5 NC balloon IC vasodilators administered for spasm Reduce flow in most distal right PLB. Attempted to balloon distal PLB stenosis with 2.0 and 1.5 balloons but unable to pass balloons across stenosis. Post attempt at angioplasty no flow in most distal PLB. Post procedure stents well expanded, GRABIEL-3 flow through stents and into PDA, largest PLB. No evidence of dissection. Arterial Closure: TR band Summary: 1. Severe multivessel coronary artery disease -95% acute distal RCA, 95% focal right posterior AV branch 70% mid LAD at takeoff of first diagonal with 80% proximal stenosis - Small circumflex with 60% proximal OM1 disease 2. Normal intracardiac filling pressure 3. Successful PCI of acute distal RCA stenosis with single drug-eluting stent (3.5 x 18 mm Larry). 4. Successful PCI of right posterior AV branch with single drug-eluting stent (2.5 x 12 mm [place]). Recommendations: To PCU for continued monitoring Continue Integrilin for 4 hours in the setting of reduced flow in small distal most right PLB Loaded with ticagrelor 180 mg in Mall Plant Caretaker Continue dual-antiplatelet therapy for at least 1 year Continue statin, and ASCVD risk factor modification Recommend staged PCI of LAD/diagonal bifurcation at a later date Consult cardiac Rehab Hemodynamics Rest Ao:: 155/77/93 Final Ao: 154/13 LV: 123/70/92 Recommendations Recommendations: PCI without planned CABG Specimens Specimens: None Radiation Exposure (mGy) 2671 Contrast (mls) 100 Fluids (cc crystalloids) Fluids (cc crystalloids): 180 Drains Drains: None Anesthesia Moderate Procedural Complication(s) None Disposition PCU I attest to the content of the Intraoperative Record and any orders documented therein. Any exceptions are noted below. [facility] Card Cath Procedure Codes Cardiac Catheterization Procedure 1: Cardiovascular Cath Procedures: 14619 Coronaries and LHC (+/-LV) Moderate Sedation Procedure 1: Sedation/Anesthesia: 76512 Mod Sedation by the same physician;Init15 Min Child Age 5 & Up Procedure 2: Sedation/Anesthesia: 52142 Mod Sedation by the same physician; Ea [id number] Minutes Stenting Procedure 1: Cardiovascular Stent Procedures: 51589 Perc transcatheter placement of intracoronary stent(s), with ang PG Care Time/CCT Total # of Minutes Spent Total Time Spent with Patient: Total time spent is greater than 50% in coordination of care (as documented) at patient's floor/unit and/or counseling patient:
[2019-12-03] MEDS ORDERED: EPTIFIBATIDE BOLUS/DRIP IV STA (14:49)
[2019-12-03] MEDS ORDERED: STAT IV Infusion **Titration per Protocol STA (14:49)
[2019-12-03] MEDS ORDERED: EPTIFIBATIDE 75 MG/100 ML VIAL IV SCH (15:00)
[2019-12-03] MEDS ORDERED: SODIUM CHLORIDE 0.9% 1000ML 1,000 ML IV SCH (15:00)
[2019-12-03] MEDS: TICAGRELOR 90 MG TAB PO SCH (20:09)
[2019-12-03] MEDS: METOPROLOL TARTRATE 25 MG TAB PO SCH (20:10)
--- NOTE | 2019-12-03 22:47 | Billing Data ---
Date of Service December 03, 2019 Coding Level of Care Code 12063 Initial Inpt Care Lvl 3
--- NOTE | 2019-12-03 23:44 | Hospitalist Progress Note ---
Date of Service December 03, 2019 Assessment & Plan (1) Unstable angina pectoris due to coronary arteriosclerosis: The patient was admitted to telemetry for serial cardiac enzymes, serial EKG's, cardiac rhythm monitoring and a 2-D echocardiogram with Dopplers. Stress echo was cancelled for cardiac cath. Place on high-dose statin atorvastatin 80 mg daily Cath showed the follwing. Severe multivessel coronary artery disease -95% acute distal RCA, 95% focal right posterior AV branch 70% mid LAD at takeoff of first diagonal with 80% proximal stenosis - Small circumflex with 60% proximal OM1 disease 2. Normal intracardiac filling pressure 3. Successful PCI of acute distal RCA stenosis with single drug-eluting stent (3.5 x 18 mm Larry). 4. Successful PCI of right posterior AV branch with single drug-eluting stent (2.5 x 12 mm Larry). Continue Integrilin for 4 hours in the setting of reduced flow in small distal most right PLB Loaded with ticagrelor 180 mg in Engine Head Repairer Continue dual-antiplatelet therapy for at least 1 year Continue statin, and ASCVD risk factor modification Recommend staged PCI of LAD/diagonal bifurcation likely during this hospital stay Hypokalemia- replaced. Admission and Anticipated Discharge Date Admission Date: December 02, 2019 Subjective Patient reports some mild chest discomfort after the procedure. He denies any SOB or nausea, and vomiting. Review of Systems Review of Systems: All systems reviewed & are unremarkable except as noted in HPI & below Physical Exam Physical Exam: Constitutional: cooperative; no acute distress and not ill appearing Neck: normal visual inspection Respiratory: normal respiratory effort and able to speak in complete sentences; no respiratory distress, no labored breathing, no retractions, no cough and no audible wheezes Auscultation: lungs clear to auscultation bilaterally; no crackles, no rales, no rhonchi and no wheezes Cardiovascular: Rate/Rhythm: regular rate and regular rhythm Heart Sounds: normal S1 and normal S2; no gallop, no murmur and no cardiac rub Vessels: posterior tibial pulses present Extremities: no pedal edema and no edema Gastrointestinal (Abdomen): Inspection/Auscultation: abdomen normal to inspection and normal bowel sounds; abdomen not distended Percussion/Palpation: abdomen soft; abdomen nontender, no guarding, abdomen not rigid and no abdominal mass Results & Data Results & Data ([facility]) Vital Signs (Past 12 Hours) Vital Signs Temp Pulse Pulse Resp BP BP Pulse Ox 12/03/19 23:27 36.4 C L 63 17 123/82 97 12/03/19 19:45 36.9 C 54 L 18 166/88 H 98 12/03/19 19:13 37.0 C 54 L 18 153/85 H 98 12/03/19 18:29 56 L 160/88 H 12/03/19 17:30 54 L 169/88 H 12/03/19 16:30 55 L 169/88 H 12/03/19 16:00 56 L 148/90 H 12/03/19 15:30 56 H 148/90 H 12/03/19 15:15 55 L 138/82 12/03/19 15:00 48 L 46 L 159/85 H 12/03/19 14:43 36.7 C 49 L 16 129/74 97 PG Care Time/CCT Total # of Minutes Spent Total Time Spent with Patient: Total time spent is greater than 50% in coordination of care (as documented) at patient's floor/unit and/or counseling patient: Coding Level of Care Code 72723 Subseq Hosp Care Lvl 3 Diagnoses Unstable angina pectoris due to coronary arteriosclerosis I25.110 Time Spent (min) 35
[2019-12-04] MEDS: ATORVASTATIN 40 MG TAB PO SCH (09:08)
[2019-12-04] MEDS: TICAGRELOR 90 MG TAB PO SCH ×2 (09:08→19:48)
[2019-12-04] MEDS: ASPIRIN 81 MG ECTAB PO SCH (09:09)
[2019-12-04] MEDS: METOPROLOL TARTRATE 25 MG TAB PO SCH ×2 (09:30→19:48)
--- NOTE | 2019-12-04 11:13 | Cardiology Progress Note ---
Date of Service December 04, 2019 Assessment & Plan (1) Unstable angina pectoris due to coronary arteriosclerosis: -classic history with rest symptoms, dynamic EKG changes, and an elevated troponin. -LIMA in distal RCA yesterday. -LIMA in right posterior AV branch yesterday. -continue Toprol, Lipitor, Brilinta, and aspirin. (2) CAD (coronary artery disease): -LIMA as described above. -70% mid LAD at the takeoff of D1. -80% proximal D1 stenosis. -staged PCI tomorrow. (3) Hypercholesterolemia: -continue atorvastatin at 40 mg q.h.s. Admission and Anticipated Discharge Date Admission Date: December 02, 2019 Subjective The patient is resting comfortably in bed without complaints of chest pain or dyspnea. He would like to proceed with the LAD PCI tomorrow morning with Dr. Jefferson. Physical Exam Physical Exam: In general this is a well-developed well-nourished white male in no acute distress. HEENT exam is negative. Neck is supple with full carotid upstrokes. There are no carotid bruits. Jugular venous pressure is flat at 90. There is no thyromegaly. Cardiovascular exam reveals a regular rhythm with a normal S1 and S2. No S3, S4, or murmurs are noted. Lungs are clear without rales, rhonchi, or wheezes. Abdomen is soft and nontender without bruits. Extremities reveal intact radial artery and posterior tibial pulses bilaterally. Right wrist is dressed. There is no peripheral edema. Results & Data ([facility]) Vital Signs (Past 12 Hours) Vital Signs Temp Pulse Pulse Resp BP BP Pulse Ox 12/04/19 07:43 36.8 C 64 18 137/82 99 12/04/19 04:00 36.4 C L 60 18 108/55 L 99 12/03/19 23:59 49 L 12/03/19 23:27 36.4 C L 63 17 123/82 97 Diagnostic Findings hospital monitor is benign. PG Care Time/CCT Total # of Minutes Spent Total Time Spent with Patient: Total time spent is greater than 50% in coordination of care (as documented) at patient's floor/unit and/or counseling patient: Coding Level of Care Code 69802 Subseq Hosp Care Lvl 3 Diagnoses Unstable angina pectoris due to coronary arteriosclerosis I25.110 CAD (coronary artery disease) I25.10 Hypercholesterolemia E78.00
--- NOTE | 2019-12-04 22:49 | Hospitalist Progress Note ---
Date of Service December 04, 2019 Assessment & Plan (1) Unstable angina pectoris due to coronary arteriosclerosis: The patient was admitted to telemetry for serial cardiac enzymes, serial EKG's, cardiac rhythm monitoring and a 2-D echocardiogram with Dopplers. Stress echo was cancelled for cardiac cath. Place on high-dose statin atorvastatin 80 mg daily Cath showed the follwing. Severe multivessel coronary artery disease -95% acute distal RCA, 95% focal right posterior AV branch 70% mid LAD at takeoff of first diagonal with 80% proximal stenosis - Small circumflex with 60% proximal OM1 disease 2. Normal intracardiac filling pressure 3. Successful PCI of acute distal RCA stenosis with single drug-eluting stent (3.5 x 18 mm Larry). 4. Successful PCI of right posterior AV branch with single drug-eluting stent (2.5 x 12 mm Larry). 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 Planned for Thursday. Changed the mtoprolol to 12.5 BID. Hypokalemia- replaced. Admission and Anticipated Discharge Date Admission Date: December 02, 2019 Subjective Patient reports doing well. He has no new complaints. Review of Systems Review of Systems: All systems reviewed & are unremarkable except as noted in HPI & below Physical Exam Physical Exam: Constitutional: cooperative; no acute distress and not ill appearing Neck: normal visual inspection Respiratory: normal respiratory effort and able to speak in complete sentences; no respiratory distress, no labored breathing, no retractions, no cough and no audible wheezes Auscultation: lungs clear to auscultation bilaterally; no crackles, no rales, no rhonchi and no wheezes Cardiovascular: Rate/Rhythm: regular rate and regular rhythm Heart Sounds: normal S1 and normal S2; no gallop, no murmur and no cardiac rub Vessels: posterior tibial pulses present Extremities: no pedal edema and no edema Gastrointestinal (Abdomen): Inspection/Auscultation: abdomen normal to inspection and normal bowel sounds; abdomen not distended Percussion/Palpation: abdomen soft; abdomen nontender, no guarding, abdomen not rigid and no abdominal mass Results & Data Results & Data ([facility]) Vital Signs (Past 12 Hours) Vital Signs Temp Pulse Pulse Resp BP Pulse Ox 12/04/19 18:59 36.6 C 57 L 18 130/74 98 12/04/19 15:41 51 L 12/04/19 15:39 37.1 C 54 L 18 118/78 100 12/04/19 14:40 65 12/04/19 11:39 36.6 C 97 H 18 125/81 97 PG Care Time/CCT Total # of Minutes Spent Total Time Spent with Patient: Total time spent is greater than 50% in coordina tion of care (as documented) at patient's floor/unit and/or counseling patient: Coding Level of Care Code 80519 Subseq Hosp Care Lvl 2 Diagnoses Unstable angina pectoris due to coronary arteriosclerosis I25.110 Time Spent (min) 25
[2019-12-05] MEDS: METOPROLOL SUCC 50MG EXT REL TAB PO SCH (07:31)
[2019-12-05] MEDS: METOPROLOL TARTRATE 25 MG TAB PO SCH ×2 (08:36→21:23)
[2019-12-05] MEDS: ASPIRIN 81 MG ECTAB PO SCH (08:36)
[2019-12-05] MEDS: ATORVASTATIN 40 MG TAB PO SCH (08:36)
[2019-12-05] MEDS: TICAGRELOR 90 MG TAB PO SCH ×2 (08:37→21:23)
--- NOTE | 2019-12-05 10:48 | Cardiology Progress Note ---
Date of Service December 05, 2019 Assessment & Plan (1) Unstable angina pectoris due to coronary arteriosclerosis: -classic history with rest symptoms, dynamic EKG changes, and an elevated troponin. -LIMA in distal RCA. -LIMA in right posterior AV branch. -for LAD PCI today. -continue Toprol, Lipitor, Brilinta, and aspirin. (2) CAD (coronary artery disease): -LIMA as described above. -70% mid LAD at the takeoff of D1. -80% proximal D1 stenosis. -staged PCI today (3) Hypercholesterolemia: -continue atorvastatin at 40 mg. Admission and Anticipated Discharge Date Admission Date: December 02, 2019 Subjective The patient is resting comfortably at the bedside without complaints of chest pain or dyspnea. Has been ambulatory within the room without difficulty. Physical Exam Physical Exam: In general this is a well-developed well-nourished white male in no acute distress. HEENT exam is negative. Neck is supple with full carotid upstrokes. There are no carotid bruits. Jugular venous pressure is flat at 90. There is no thyromegaly. Cardiovascular exam reveals a regular rhythm with a normal S1 and S2. No S3, S4, or murmurs are noted. Lungs are clear without rales, rhonchi, or wheezes. Abdomen is soft and nontender without bruits. Extremities reveal intact radial artery pulses bilaterally. Right wrist is dressed. There is no peripheral edema. Results & Data ([facility]) Vital Signs (Past 12 Hours) Vital Signs Temp Pulse Pulse Resp BP Pulse Ox 12/05/19 07:45 36.8 C 68 16 151/68 H 95 12/05/19 04:20 36.9 C 60 17 147/57 H 99 12/05/19 00:00 52 L 12/04/19 23:06 36.4 C L 57 L 18 124/69 98 Laboratory Results ekg monitor notes sinus rhythm without significant dysrhythmia. PG Care Time/CCT Total # of Minutes Spent Total Time Spent with Patient: Total time spent is greater than 50% in coordination of care (as documented) at patient's floor/unit and/or counseling patient: Coding Level of Care Code 15043 Subseq Hosp Care Lvl 3 Diagnoses Unstable angina pectoris due to coronary arteriosclerosis I25.110 CAD (coronary artery disease) I25.10 Hypercholesterolemia E78.00
[2019-12-05] MEDS ORDERED: MIDAZOLAM HCL 1 MG/ML 2ML VIAL ONE ×4 (13:57→18:31)
[2019-12-05] MEDS ORDERED: HEPARIN (PORCINE) 1000 UNIT/ML 10 ML (CATH LAB USE ONLY) ONE ×4 (13:57→18:06)
[2019-12-05] MEDS ORDERED: fentaNYL citrate 100 MCG/2 ML VIAL ONE ×3 (13:57→18:06)
[2019-12-05] MEDS ORDERED: NiCARDipine HCL INJ 2.5 MG/ML 10 ML AMP ONE ×2 (13:57→18:06)
[2019-12-05] MEDS ORDERED: NITROGLYCERIN/D5W 100MCG/ML 20ML SYR ONE ×2 (13:58→18:06)
--- NOTE | 2019-12-05 16:09 | XCELERA ---
[id number] \\[id number]_[id number]}___[id number]
[2019-12-05] MEDS ORDERED: PROTAMINE SULFATE 10 MG/ML 5 ML VIAL ONE ×2 (16:21→18:31)
--- NOTE | 2019-12-05 16:35 | Post Anesthesia Assessment ---
Date of Service December 05, 2019 Post Sedation Assessment Vital Signs Temp Pulse Pulse Resp BP Pulse Ox 12/05/19 16:20 58 L 18 147/97 H 96 12/05/19 11:20 98.8 F 52 L 18 136/82 97 12/05/19 07:45 98.2 F 68 16 151/68 H 95 12/05/19 04:20 98.4 F 60 17 147/57 H 99 12/05/19 00:00 52 L 12/04/19 23:06 97.5 F L 57 L 18 124/69 98 12/04/19 18:59 97.9 F 57 L 18 130/74 98 Recovery Score Activity: Moves 4 extremities Respiration: Deep Breath/Cough Circulation: +/-20% PreAnes Value Consciousness: Fully Awake Oxygen Saturation: > 92% On Room Air Post Anesthesia Score: 10 Discharge Sedation Level of Care: Fast Track Phase II Post Sedation Plan On clinical assessment, the patient appears to have tolerated the sedation without complications. Patient is recovering as anticipated. Patient will continue to be monitored by nursing and may be discharged when sedation discharge criteria are met per below protocol. Upon Completions of procedure up to 15 minutes continue every 5 minute vital signs and the P.A.R. score; then discharge to a Phase I or Fast Track to Phase II per the following guidelines: * Discharge Patient to appropriate Phase II area if PAR is 8 or greater or return to pre- procedure baseline. The post - procedure orders will be as directed. * If PAR score is less than 8 or not return to pre-procedure baseline then patient will follow Phase I monitoring till PAR is reached for Phase II. The Phase I may be done in procedure room or may call to secure a Phase I area. * If naloxone or flumazenil are used for reversal, hold in Phase I for continued monitoring from when last reversal dose was given for a minimum of 60 minutes or longer pending the nurse and/or physician discretion of patient condition before discharge to Phase II. Please call the Sedation Physician to re-evaluate and complete post-note for discharge to Phase II area. Do NOT discharge from procedure sedation or Phase 1 until post- sedation evaluat ion note is complete by procedure /sedation MD Sedation Discharge Instructions to be given to the patient at discharge to home.
--- NOTE | 2019-12-05 16:39 | Cardiac Catheterization ---
[facility] Data: Biological Aide Cardiac Status Clinical evaluation leading to the procedure CAD Presenation: Non STEMI Anginal Classification: CCS IV Heart Failure: No Cardiogenic Shock within 24 Hours: No Cardiac Arrest within 24 Hours: No Imaging Studies Past 6 Months: Yes Stress Studies Past 6 Months: No Diagnostic Physicians Name: Reynaldo Jefferson MD Status: Elective Closure Device Percutaneous Entry Location: Radial Closure Device: Radial Band Recommendations: PCI without planned CABG PCI Indication: Staged PCI Lesion Segment Name: mid LAD Culprit Artery: No Stenosis Prior to Rx (%): 70 Chronic Total Occlusion: No IVUS: No FFR: No Pre-Procedure GRABIEL Flow: 3 Previously Treated Lesion: No Lesion Complexity: Non-High/Non-C Lesion Length (mm): 12 Thrombus Present: No Bifurcation Lesion: Yes Guidewire Across Lesion: Stenosis Post-Procedure (%): 0 Post-Procedure GRABIEL Flow: 3 Devices(s) Deployed: Yes Yes Lesion #2 Segment Name: proximal 1st diagonal Culprit Artery: No Stenosis Prior to Rx (%): 90 Chronic Total Occlusion: No IVUS: No FFR: No Pre-Procedure GRABIEL Flow: 3 Previously Treated Lesion: No Lesion Complexity: Non-High/Non-C Lesion Length (mm): 12 Thrombus Present: No Bifurcation Lesion: Yes Guidewire Across Lesion: Yes Stenosis Post-Procedure (%): 0 Post-Procedure GRABIEL Flow: 3 Devices(s) Deployed: Yes Intraprocedure Events Significant Disection: No Perforation: Yes (Distal wire perforation involving small branch of diagonal.) Cardiac Cath Procedure Full Procedure Date December 05, 2019 Pre-Procedure Diagnosis Pre-Procedure Diagnosis: Non STEMI AUC Score AUC Score: 8 Post-Procedure Diagnosis Post-Procedure Diagnosis: Severe CAD, Successful PCI and Normal Intracardiac Pressures Procedure(s) Performed Procedure(s) Performed: Coronary Angiography, Left Heart Cath and Drug Eluting Stent Director Of Public Safety Reynaldo Jefferson MD Manager Printing(s) Olivia Estimated Blood Loss Estimated Blood Loss: 15 Medication(s) Medication(s): Fentanyl, Heparin, Lidocaine 1%, Nicardipine, Nitroglycerin and Versed Medication(s): Protamine Summary of Findings Indication: Staged PCI of LAD/diagonal Access: 6 Fr slender right radial artery Catheters: EBU 3.5 guide, diagnostic JR4 Findings: For full details of patient's coronary angiography please see cath report dictated on 12/03/2019. Briefly patient found to have severe multivessel disease with sequential high-grade RCA/posterior AV branch lesions which were stented with 2 nonoverlapping drug-eluting stents. In addition found to have severe L AD/first diagonal disease and brought back for staged PCI today. -- PCI -- Antithrombotic therapy: Heparin, ticagrelor Procedure: Left main cannulated with EBU 3.5 guide Pro-water wire placed across LAD stenosis into distal vessel Automatic Stacker 50 wire passed across lesion into distal diagonal Proximal diagonal dilated with 2.0 balloon Mid LAD lesion predilated with 2.0 compliant balloon Difficulty passing stent into diagonal Proximal diagonal predilated with 2.5 NC balloon With the aid of a guide liner was able to deliver a 2.25 x 18 mm Larry drug- eluting stent to proximal diagonal. Stent postdilated with stent balloon. LAD rewired with airplane patrol pilot 50 wire Mid LAD across takeoff of diagonal stented with 2.5 x 15 mm [place] drug-eluting stent Stent postdilated with 2.5 NC balloon IC vasodilators administered for spasm Post procedure GRABIEL 3 flow, stents well expanded with minimal residual stenosis. Had evidence of a distal wire perforation involving a very small branch of diagonal. Vessel thought to small to coil or balloon tamponade. Echo obtained in [facility] showed new trivial pericardial effusion. Anticoagulation partially reversed with 10 of protamine. Arterial Closure: TR band Summary: 1. Successful PCI of mid LAD with single drug-eluting stent (2.5 x 15 mm [place]). 2. Successful PCI of proximal first diagonal with single drug-eluting stent (2.25 x 18 mm Larry). 3. Procedure complicated by distal wire perforation involving very small (<1 mm) branch of first diagonal. Trace pericardial effusion on echocardiogram. Recommendations: Continue dual-antiplatelet therapy for at least 1 year IV fluids, hold metoprolol and close hemodynamic monitoring. Repeat echocardiogram in a.m. Hemodynamics Rest Ao:: 119/61/88 Final Ao: 182/89/128 LV: 171/10 Recommendations Recommendations: PCI without planned CABG Specimens Specimens: None Radiation Exposure (mGy) 2374 Contrast (mls) 120 Fluids (cc crystalloids) Fluids (cc crystalloids): 180 Drains Drains: None Anesthesia Moderate Procedural Complication(s) None Disposition PCU I attest to the content of the Intraoperative Record and any orders documented therein. Any exceptions are noted below. [facility] Card Cath Procedure Codes Cardiac Catheterization Procedure 1: Cardiovascular Cath Procedures: 41225 Left Heart Cath (+/-LV) Moderate Sedation Procedure 1: Sedation/Anesthesia: 32709 Mod Sedation by the same physician;Init15 Min Child Age 5 & Up Procedure 2: Sedation/Anesthesia: 53181 Mod Sedation by the same physician; Ea [id number] Minutes Stenting Procedure 1: Cardiovascular Stent Procedures: 28307 Perc transcatheter placement of intracoronary stent(s), with ang Procedure 2: Cardiovascular Stent Procedures: 92460 Ea addl branch of a major coronary artery PG Care Time/CCT Total # of Minutes Spent Total Time Spent with Patient: Total time spent is greater than 50% in coordination of care (as documented) at patient's floor/unit and/or counseling patient:
[2019-12-05] MEDS ORDERED: SODIUM CHLORIDE 0.9% 1000ML 1,000 ML IV SCH (16:45)
--- NOTE | 2019-12-05 17:09 | XCELERA ---
[id number] \\[id number]_[id number]}___[id number].pdf
[2019-12-05] MEDS ORDERED: CLOPIDOGREL BISULFATE 300 MG TAB ONE (17:14)
[2019-12-05] MEDS ORDERED: DOPamine 400MG / 250ML D5W IV ONE (17:41)
[2019-12-05] MEDS ORDERED: ATROPINE SULFATE 0.1 MG/ML 10ML SYR IV ONE (17:44)
[2019-12-05] MEDS ORDERED: ONDANSETRON INJ 2 MG/ML 2 ML VIAL ONE (17:49)
[2019-12-05] MEDS ORDERED: NOREPINEPHRINE BITARTRATE 1 MG/ML 4 ML VIAL (CATH LAB USE ONLY) ONE (17:58)
[2019-12-05 18:55] LABS: iSTAT Arterial Blood Gas HCO3 21 meg/L (19-24); iSTAT Arterial Blood Gas pCO2 43 mmHg (35-46); iSTAT Arterial Blood Gas pH 7.31 (7.35-7.45); iSTAT Arterial Blood Gas pO2 183 mmHg (80-95); iSTAT Carbon Dioxide 23 mmol/L (24-31); iSTAT Hematocrit 41 % (42-52); iSTAT Hemoglobin 13.9 g/dl (14.0-18.0); iSTAT Potassium 3.6 mmol/L (3.3-5.0); iSTAT Sodium 138 mmol/L (135-144)
--- NOTE | 2019-12-05 19:42 | Cardiac Catheterization ---
[facility] Data: Dye Room Helper Cardiac Status Clinical evaluation leading to the procedure CAD Presenation: Sx unlikely to be ischemic Cardiogenic Shock within 24 Hours: Yes Diagnostic Physicians Name: Reynaldo Jefferson MD Status: Emergency Closure Device Percutaneous Entry Location: Subxiphoid pericardial approach Closure Device: Angio-Seal Recommendations: Medical Therapy and/or Counseling Intraprocedure Events Significant Disection: No Perforation: No Cardiac Cath Procedure Full Procedure Date December 05, 2019 Pre-Procedure Diagnosis Pre-Procedure Diagnosis: Pericardial Disease AUC Score AUC Score: 9 Post-Procedure Diagnosis Post-Procedure Diagnosis: Cardiothoracic Finding (Pericardial effusion with cardiac tamponade) Procedure(s) Performed Procedure(s) Performed: Coronary Angiography, Pericardiocentesis and Procedure (Central venous catheter placement) Rodeo Rider Reynaldo Jefferson MD Fire Systems Inspector(s) Chris Estimated Blood Loss Estimated Blood Loss: 15 Medication(s) Medication(s): Dopamine, Fentanyl, Norepinephrine and Versed Medication(s): Protamine Summary of Findings Indication: Post procedure patient became dizzy, diaphoretic and acutely hypotensive to the 60s. ECG with no acute ST changes. In the setting of known wire perforation concern for tamponade and brought emergently back to cardiac catheterization lab. Procedure: Patient pale and hypotensive. Received IV fluid bolus, atropine started on dopamine and eventually norepinephrine. 6 Fr right TRUCKER HAND access obtained 7 Fr right CFV access obtained Echo confirmed large circumferential pericardial effusion with RV collapse Via subxiphoid approach pericardial space accessed with micropuncture needle Pericardial space confirmed with injection of saline contrast 8FR pericardial drain placed under fluoroscopic guidance space Removal of a total of 500 cc of bloody pericardial fluid With removal of pericardial fluid had normalization of pressures and pressors weaned off Left main cannulated with EBU 3.5 guide Repeat coronary angiography revealed patent LAD, diagonal stents. Again contrast extravasation noted via very small branch off first diagonal. Repeat ACT 147 and given 10 additional protamine Limited options to treat wire perforation. Vessel extremely small and concern with repeat attempted intervention for proximal complications. Pericardial drain left in place will allow vessel to self tamponade. Right TRUCKER HAND access closure with Angio-Seal Right CFV access closure with mynx Summary: 1. Large pericardial effusion with cardiac tamponade 2. Small distal wire perforation involving branch of first diagonal 3. Patent LAD, diagonal stents 4. Successful pericardiocentesis with placement of pericardial drain Recommendations: Admit to ICU for further monitoring Pericardial drain to gravity overnight Check H&H, type and screen and maintain hemoglobin > 9 Close hemodynamic monitoring if recurrent hypotension, repeat suctioning of pericardial drain Continue ticagrelor -Repeat echo in AM Hemodynamics Rest Ao:: //68 Final Ao: 129/75/82 LV: -- Recommendations Recommendations: Medical Therapy and/or Counseling Specimens Specimens: None Radiation Exposure (mGy) 487 Contrast (mls) 40 Fluids (cc crystalloids) Fluids (cc crystalloids): 850 Drains Drains: Pericardial drain Anesthesia Moderate Procedural Complication(s) None Disposition ICU I attest to the content of the Intraoperative Record and any orders documented therein. Any exceptions are noted below. [facility] Card Cath Procedure Codes Cardiac Catheterization Procedure 1: Cardiovascular Cath Procedures: 43971 Coronaries Therapeutic Services & Ancillary Proc Procedure 1: Cardiovascular Tx and Anc Procedures: 80221 Pericardiocentesis; initial Procedure 2: Cardiovascular Tx and Anc Procedures: 93295 Insertion Central Venous Catheter Moderate Sedation Procedure 1: Sedation/Anesthesia: 14926 Mod Sedation by the same physician;Init15 Min Child Age 5 & Up PG Care Time/CCT Total # of Minutes Spent Total Time Spent with Patient: Total time spent is greater than 50% in coordination of care (as documented) at patient's floor/unit and/or counseling patient:
[2019-12-05 19:50] LABS: Mean Corpuscular Hgb Conc 32.1 g/dL (32-36)
[2019-12-05 20:10] LABS: Hematocrit (blood only) 42.4 % (42-52); Hemoglobin 13.6 g/dL (14.0-18.0); Mean Corpuscular Hemoglobin 28.4 pg (25-34); Mean Corpuscular Volume 88.5 fL (80-100); Platelet Count 129 K/uL (130-400); RDW Coefficient of Variation 12.8 % (11.5-14.5); RDW Standard Deviation 41.3 fL (36.4-46.3); Red Blood Count 4.79 M/uL (4.7-6.1)
[2019-12-05 20:11] LABS: Platelet Estimate Decreased (Normal)
--- NOTE | 2019-12-05 20:34 | XRay Report ---
XR chest 1V portable CLINICAL HISTORY: post pericardial drain COMPARISON STUDY: 12/02/2019 FINDINGS: There is faint visualization of a catheter projected over the left heart border. The heart is borderline enlarged. There is no failure. There is no focal pulmonary consolidation. There is no p neumothorax. There is no evidence of pneumomediastinum. There are nonspecific right upper quadrant ca lcifications possibly related to the right kidney.[ IMPRESSION: No active disease in the chest. ACT 112: Negative or not required by law. Electronically signed by: Casey Salas M.D. 12/05/2019 8:33 PM
--- NOTE | 2019-12-05 20:57 | Critical Care Consultation ---
Date of Consultation December 05, 2019 Assessment & Plan (1) Pericardial effusion with cardiac tamponade: Reason Critically Ill: 59-year-old male with severe CAD, admitted for an NSTEMI with heart cath x2 and PCI x4 on this admission, presents to the ICU following PCI to LAD x1 and PCI to proximal first diagonal x1 with complication of pericardial effusion with tamponade requiring pericardiocentesis with pericardial drain. Neuro - [facility] ICU: Negative Cardiac - Pericardial effusion with evidence of tamponadesecondary to perforation of small diagonal during heart cath, now status post pericardiocentesis with pericardial drain -EBL of 550, hemoglobin stable -Heparin drip discontinued, reversed with protamine sulfate -Patient currently hemodynamically stable, NSR and normotensive -Cardiology managing pericardial drain, currently to gravity -Follow-up repeat echo in a.m. -Started on colchicine twice daily -Holding MTP -We will continue to monitor in ICU for now, continuous telemetry and frequent BP monitoring CAD/N STEMI/HLDpatient underwent cath on 12/02 with PCI RCA x1 and right posterior AV branch x1; 12/04 underwent PCI to LAD x1 and PCI to proximal first diagonal x1 -Complicated by [place] of small diagonal with pericardial effusion, see above -We will continue ASA and Brilinta with caution per cardiology recommendation, continue Lipitor -Heparin drip discontinued, holding MTP -Currently patient without chest pain, no ST elevation on EKG -Maximize electrolytes -Continuous monitor on telemetry Respiratory - Currently maintaining sats on room air, no history respiratory disease Chest x-ray clear, no pneumothorax following procedure Continue to monitor on pulse ox GI - Heart healthy diet RENAL/LYTES - Creatinine stable Maximize electrolytes and replete as indicated Continue IV fluid resuscitation - Strict I's and O's ENDO - No history of diabetes or thyroid disease ICU hyperglycemic protocol HEME - Acute bleedsecondary to perforated coronary artery with pericardial effusion, see treatment above -Heparin DC'd and reversed with protamine sulfate -EBL 550 via pericardial drain, will continue to monitor output -Hemoglobin stabilized at 13, will continue to monitor with frequent H&H -We will continue Brilinta and aspirin with caution -No indication for transfusion at this time, patient is typed and screened, will transfuse if indicated ID - No indication for infectious process at this time LINES/IV ACCESS - Peripheral IVs DVT PROPHYLAXIS - SCDs, holding anticoagulation for acute bleed I have personally spent 40 minutes of critical care time in the direct management of this patient. This is a life/limb threatening event. This includes time spent evaluating patient, direct bedside care, chart review, placing orders, interpretation of diagnostic studies, discussion with consultants, patient, and family members, as well as other required patient management activities. This time is exclusive of all separately billable procedures, and teaching time and separate from and in addition to any other critical care service time. Thank you for allowing us to participate in the care of this patient. Please refer to my attending physician's documentation for any further recommendations. (2) Non-ST elevation MO (NSTEMI): (3) CAD (coronary artery disease): (4) Unstable angina pectoris due to coronary arteriosclerosis: (5) Hypercholesterolemia: History of Present Illness Attending Physician: Mani Colón History of Present Illness Patient is a 59-year-old male with no significant past medical history who presented to the emergency department on 12/01 with 2 weeks of ongoing and worsening chest pain which had initially been associated with activity but more than occurring at rest. He had ST suppression of V3 to V6 and an elevated troponin on admission and was taken to [facility] on 12/02 and received PCI to RCA x1 and PCI to right posterior AV x1. He was admitted to PCU with plan to go back to the [facility] 12/04. Patient now presents to the ICU post cath where he received PCI to LAD x1 and PCI to proximal first diagonal x1. Procedure was complicated by perforation of small diagonal which developed into pericardial effusion with tamponade. He required pericardiocentesis with pericardial drain placed, with EBL 550. Patient now presents to the ICU with pericardial drain in place to gravity, is currently hemodynamically stable. Hemoglobin appears to have stabilized, and no evidence of significant active bleeding at this time. He was previously on heparin drip which was reversed. Continuing aspirin and Brilinta per cardiology recommendations. Repeat echo in a.m. Patient to remain in ICU at this time for close hemodynamic monitoring following cath with PCI x2 and pericardial effusion with tamponade requiring pericardial drain. Currently patient reports mild lethargy, and substernal chest pain associated with deep inspiration and is not constant. He denies radiation of pain. He denies headache, dizziness, fevers, sore throat, cough, shortness of breath, palpitations, abdominal pain, or nausea or vomiting. He denies numbness or tingling to the extremities below catheter insertion sites. Allergies Allergy/AdvReac Type Severity Reaction Status Date / Time No Known Allergies Allergy Verified 12/02/19 20:59 Home Medications Home Medications Medication Instructions Recorded Confirmed Type Dynamine Suppliment 1 dose PO DIRECTED PRN 12/02/19 12/02/19 History Essential Oils 1 applic TOPICAL DIRECTED PRN 12/02/19 12/02/19 History activated charcoal [CharcoCaps] 0 mg PO DAILY PRN 12/02/19 12/02/19 History multivitamin 1 tab PO DAILY 12/02/19 12/02/19 History Patient History Social History Preferred Language: Cambodian Communication Ability: Effective Film Sorter Required: No Beliefs That Will Affect Care: None Current Living Situation: Spouse Feels Safe at Home: Yes Smoking Status: Never smoker Second Hand Exposure: No ; Hx Alcohol Use: No Hx Substance Use: No Review of Systems Review of Systems: All systems reviewed & are unremarkable except as noted in HPI & below Physical Exam Constitutional: cooperative and comfortable Eyes: PERRL, conjunctivae normal, anicteric sclerae ENMT: external ear and nose normal, oropharynx normal Neck: trachea midline, no thyromegaly Respiratory: normal respiratory effort, lungs clear to auscultation Cardiovascular: RRR, no murmur, no edema Heart Sounds: normal S1 and normal S2 Vessels: no JVD Extremities: normal capillary refill; no edema Gastrointestinal (Abdomen): normal bowel sounds, soft, nontender, no hepatosplenomegaly Musculoskeletal: no cyanosis or clubbing, extremities motor strength 5/5 Skin: no rashes, warm and dry Neurologic: PERRL, EOMI, accommodation nl, no face palsy, no dysarthria Psychiatric: A+Ox3, euthymic affect Results & Data Results & Data ([facility]) Vital Signs (Past 12 Hours) Vital Signs Temp Pulse Pulse Resp BP Pulse Ox 12/05/19 17:39 62/44 L 12/05/19 17:36 93 H 22 114/80 97 12/05/19 17:21 81 22 131/94 97 12/05/19 17:06 36.6 C 85 75 18 138/103 H 98 12/05/19 16:35 59 L 18 146/94 H 97 12/05/19 16:20 58 L 18 147/97 H 96 12/05/19 11:20 37.1 C 52 L 18 136/82 97 Coding Level of Care Code Critical Care 1st 30-74 mins Diagnoses Pericardial effusion with cardiac tamponade I31.3; I31.4 Non-ST elevation MO (NSTEMI) I21.4 CAD (coronary artery disease) I25.10 Unstable angina pectoris due to coronary arteriosclerosis I25.110 Hypercholesterolemia E78.00
[2019-12-05] MEDS: COLCHICINE 0.6 MG TAB PO SCH (21:23)
--- NOTE | 2019-12-05 21:35 | Hospitalist Progress Note ---
Date of Service December 05, 2019 Assessment & Plan (1) Unstable angina pectoris due to coronary arteriosclerosis: The patient was admitted to telemetry for serial cardiac enzymes, serial EKG's, cardiac rhythm monitoring and a 2-D echocardiogram with Dopplers. Stress echo was cancelled for cardiac cath. Place on high-dose statin atorvastatin 80 mg daily Cath showed the follwing. Severe multivessel coronary artery disease -95% acute distal RCA, 95% focal right posterior AV branch 70% mid LAD at takeoff of first diagonal with 80% proximal stenosis - Small circumflex with 60% proximal OM1 disease 2. Normal intracardiac filling pressure 3. Successful PCI of acute distal RCA stenosis with single drug-eluting stent (3.5 x 18 mm Larry). 4. Successful PCI of right posterior AV branch with single drug-eluting stent (2.5 x 12 mm Larry). Continue Integrilin for 4 hours in the setting of reduced flow in small distal most right PLB Loaded with ticagrelor 180 mg in [facility] [employer] [facility] Continue dual-antiplatelet therapy for at least 1 year Continue statin, and ASCVD risk factor modification On Thursday, 1. Successful PCI of mid LAD with single drug-eluting stent (2.5 x 15 mm Larry). 2. Successful PCI of proximal first diagonal with single drug-eluting stent (2.25 x 18 mm Larry). 3. Procedure complicated by distal wire perforation involving very small (<1 mm) branch of first diagonal. Trace pericardial effusion on echocardiogram. Recommendations: Continue dual-antiplatelet therapy for at least 1 year IV fluids, hold metoprolol and close hemodynamic monitoring. Repeat echocardiogram in a.m. Plan is to closely monitor vitals, nursing staff aware. Hypokalemia- replaced. (2) Pericardial effusion with cardiac tamponade: UPDATE: Shortly after seeing patient, he became diaphoretic. Blood pressure dropped. Dr. KRUGER WAS CALLED and arrived to the room. Placed on atropine and dopamine. Found cardiac tamponade from pericardial effusion. Patient required emergent procedure. Fluid was removed through pericardiocenthesis, and pericardial fluid drain placed. Patient transferred to ICU. Admission and Anticipated Discharge Date Admission Date: December 02, 2019 Subjective Patient seen shortly after returning to the room. He was complaining of chest pain, but reports this was similar to Thursday after he had a cath. He reports there was a complication and had an echo done. He reports initially that he was unable to take deep breaths, but when prompted too, he states he was able to. Review of Systems Review of Systems: All systems reviewed & are unremarkable except as noted in HPI & below Physical Exam Physical Exam: Constitutional: cooperative; no acute distress Neck: normal visual inspection Respiratory: normal respiratory effort and able to speak in complete sentences; no respiratory distress, no labored breathing, no retractions, no cough and no audible wheezes Auscultation: lungs clear to auscultation bilaterally; no crackles, no rales, no rhonchi and no wheezes Cardiovascular: Rate/Rhythm: regular rate and regular rhythm Heart Sounds: normal S1 and normal S2; no gallop, no murmur and no cardiac rub Vessels: posterior tibial pulses present Extremities: no pedal edema and no edema Gastrointestinal (Abdomen): Inspection/Auscultation: abdomen normal to inspection and normal bowel sounds; Results & Data Results & Data ([facility]) Vital Signs (Past 12 Hours) Vital Signs Temp Pulse Pulse Resp BP BP Pulse Ox 12/05/19 21:15 89 14 96 12/05/19 21:08 89 16 99/69 L 97 12/05/19 21:00 80 17 97 12/05/19 20:53 97 H 10 L 101/71 96 12/05/19 20:46 107 H 10 L 89/59 L 95 12/05/19 20:45 113 H 10 L 95 12/05/19 20:41 116 H 14 105/68 96 12/05/19 20:39 115 H 17 84/67 L 96 12/05/19 20:38 108 H 16 85/62 L 96 12/05/19 20:30 105 H 16 97 12/05/19 20:23 96 H 10 L 101/74 96 12/05/19 20:15 90 10 L 96 12/05/19 20:08 95 H 10 L 128/81 97 12/05/19 20:00 92 H 10 L 97 12/05/19 19:53 91 H 14 114/78 95 12/05/19 19:45 89 16 95 12/05/19 19:38 91 H 18 125/77 95 12/05/19 19:30 86 14 93 12/05/19 19:23 96 H 23 120/73 96 12/05/19 19:15 97 H 20 98 12/05/19 19:11 108 H 20 12/05/19 19:08 103 H 22 129/82 12/05/19 17:39 62/44 L 12/05/19 17:36 93 H 22 114/80 97 12/05/19 17:21 81 22 131/94 97 12/05/19 17:06 36.6 C 85 75 18 138/103 H 98 12/05/19 16:35 59 L 18 146/94 H 97 12/05/19 16:20 58 L 18 147/97 H 96 12/05/19 11:20 37.1 C 52 L 18 136/82 97 PG Care Time/CCT Total # of Minutes Spent Total Time Spent with Patient: Total time spent is greater than 50% in coordination of care (as documented) at patient's floor/unit and/or counseling patient: Coding Level of Care Code 33717 Subseq Hosp Care Lvl 2 Diagnoses Unstable angina pectoris due to coronary arteriosclerosis I25.110 Pericardial effusion with cardiac tamponade I31.3; I31.4
[2019-12-06 00:16] LABS: Hematocrit (blood only) 37.1 % (42-52); Hemoglobin 12.2 g/dL (14.0-18.0)
[2019-12-06 00:28] LABS: Fibrinogen 280 mg/dl (184-400)
[2019-12-06 04:46] LABS: Basophils # (auto) 0.01 K/uL (0-0.2); Basophils % (auto) 0.1 %; Hematocrit (blood only) 35.4 % (42-52); Hemoglobin 11.4 g/dL (14.0-18.0); Immature Granulocytes # (auto) 0.03 K/uL (0.00-0.02); Immature Granulocytes % (auto) 0.3 %; Lymphocytes % (auto) 5.8 %; Mean Corpuscular Hemoglobin 28.7 pg (25-34); Mean Corpuscular Hgb Conc 32.2 g/dL (32-36); Mean Corpuscular Volume 89.2 fL (80-100); Mean Platelet Volume 12.3 fL (7.4-10.4); Monocytes # (auto) 0.87 K/uL (0.11-0.59); Monocytes % (auto) 8.4 %; Neutrophils % (auto) 85.4 %; Platelet Count 131 K/uL (130-400); RDW Coefficient of Variation 12.9 % (11.5-14.5); RDW Standard Deviation 41.9 fL (36.4-46.3); Red Blood Count 3.97 M/uL (4.7-6.1); White Blood Count 10.31 K/uL (4.8-10.8)
[2019-12-06 04:57] LABS: INR 1.1 (0.9-1.1); Partial Thromboplastin Ratio 0.9; Partial Thromboplastin Time 24.2 Seconds (21.0-31.0); Prothrombin Time 11.1 Seconds (9.0-12.0)
[2019-12-06 05:04] LABS: BUN Creatinine Ratio 15.1 (10-20); Calcium 7.6 mg/dl (8.5-10.1); Est GFR (African American) 90.9; Est GFR (Non-African American) 78.4; Magnesium 1.9 mg/dl (1.8-2.4); Potassium 4.3 mmol/L (3.5-5.1)
[2019-12-06 05:05] LABS: Phosphorus 5.4 mg/dl (2.5-4.9)
[2019-12-06] MEDS ORDERED: LACTATED RINGER'S 1,000 ML IV SCH (07:15)
[2019-12-06] MEDS ORDERED: SODIUM CHLORIDE 0.9% 1000ML 1,000 ML IV SCH (07:15)
[2019-12-06] MEDS: COLCHICINE 0.6 MG TAB PO SCH ×2 (09:07→21:09)
[2019-12-06] MEDS: ATORVASTATIN 40 MG TAB PO SCH (09:07)
[2019-12-06] MEDS: ASPIRIN 81 MG ECTAB PO SCH (09:07)
[2019-12-06] MEDS: TICAGRELOR 90 MG TAB PO SCH ×2 (09:07→21:09)
[2019-12-06] MEDS: METOPROLOL TARTRATE 25 MG TAB PO SCH (09:08)
--- NOTE | 2019-12-06 09:28 | Critical Care Progress Note ---
Date of Service December 06, 2019 Assessment & Plan (1) Pericardial effusion with cardiac tamponade: Reason Critically Ill: 59-year-old male with severe CAD, admitted for an NSTEMI with heart cath x2 and PCI x4 on this admission, presents to the ICU following PCI to LAD x1 and PCI to proximal first diagonal x1 with complication of pericardial effusion with tamponade requiring pericardiocentesis with pericardial drain. Neuro - [facility] ICU: Negative Cardiac - Pericardial effusion with evidence of tamponadesecondary to perforation of small diagonal during heart cath, now status post pericardiocentesis with pericardial drain -EBL of 550, hemoglobin stable -Heparin drip discontinued, reversed with protamine sulfate -Cardiology managing pericardial drain, currently to gravity -Minimal drainage at this time -Follow-up repeat echo pending. -Started on colchicine twice daily CAD/N STEMI/HLDpatient underwent cath on 12/02 with PCI RCA x1 and right posterior AV branch x1; 12/04 underwent PCI to LAD x1 and PCI to proximal first diagonal x1 -Complicated by [place] of small diagonal with pericardial effusion, see above -We will continue ASA and Brilinta with caution per cardiology recommendation, continue Lipitor -Heparin drip discontinued, Respiratory - Currently maintaining sats on room air, no history respiratory disease GI - Heart healthy diet RENAL/LYTES - Replace as needed - Strict I's and O's ENDO - No history of diabetes or thyroid disease ICU hyperglycemic protocol HEME - Acute bleedsecondary to perforated coronary artery with pericardial effusion, see treatment above -We will continue Brilinta and aspirin with caution -No indication for transfusion at this time, patient is typed and screened, will transfuse if indicated ID - No indication for infectious process at this time LINES/IV ACCESS - Peripheral IVs DVT PROPHYLAXIS - SCDs, holding anticoagulation for acute bleed (2) Non-ST elevation AL (NSTEMI): (3) CAD (coronary artery disease): (4) Unstable angina pectoris due to coronary arteriosclerosis: (5) Hypercholesterolemia: Admission and Anticipated Discharge Date Admission Date: December 02, 2019 Subjective Complains of generalized soreness secondary to restricted positioning. Would like to sit up. Chest pain mild, worse with deep inspiration. No lightheadedness nor dizziness Review of Systems Review of Systems: As per HPI Physical Exam Physical Exam: General: Alert. nontoxic. Skin: Warm, dry, Head: Atraumatic Ears, nose, mouth and throat: airway patent Cardiovascular: Normal peripheral perfusion Chest: Pericardial drain present no fluid in bag Respiratory: no respiratory distress Gastrointestinal: Non distended Musculoskeletal: No deformity Results & Data Results & Data ([facility]) Vital Signs (Past 12 Hours) Vital Signs Pulse Pulse Resp BP BP Pulse Ox 12/06/19 04:36 71 21 100/60 97 12/06/19 04:30 75 15 98 12/06/19 04:06 69 15 110/67 97 12/06/19 04:00 72 3 L 97 12/06/19 03:36 73 13 114/64 97 12/06/19 03:30 75 18 98 12/06/19 03:06 81 17 114/71 98 12/06/19 03:00 81 18 97 12/06/19 02:36 79 9 L 110/70 96 12/06/19 02:30 93 H 5 L 96 12/06/19 02:07 63 14 97 12/06/19 02:06 96 H 18 115/71 98 12/06/19 01:36 65 17 116/72 97 12/06/19 01:35 73 12/06/19 01:30 67 17 96 12/06/19 01:05 80 21 116/78 97 12/06/19 00:35 87 21 112/72 97 12/06/19 00:05 77 4 L 109/71 96 12/05/19 23:59 86 105/71 96 12/05/19 23:35 93 H 105/71 96 12/05/19 23:30 96 H 95 12/05/19 23:18 100 H 12 108/72 96 12/05/19 23:16 101 H 83/60 L 96 12/05/19 23:06 120 H 83/60 L 96 12/05/19 23:03 117 H 14 100/76 97 12/05/19 23:00 115 H 14 97 12/05/19 22:38 89 14 96 12/05/19 22:35 87 11 L 109/77 96 12/05/19 22:30 88 16 97 12/05/19 22:05 88 17 121/75 97 12/05/19 22:00 71 23 98 12/05/19 21:53 73 14 114/81 99 12/05/19 21:38 71 20 105/79 99 12/05/19 21:30 94 H 13 98 Laboratory Results 12/06/19 12/06/19 12/06/19 Range/Units 04:24 04:24 04:24 WBC 10.31 (4.8-10.8) K/uL RBC 3.97 L (4.7-6.1) M/uL Hgb 11.4 L (14.0-18.0) g/dL POC Hgb (14.0-18.0) g/dl Hct 35.4 L (42-52) % POC Hct (42-52) % MCV 89.2 (80-100) fL MCH 28.7 (25-34) pg MCHC 32.2 (32-36) g/dL RDW Std Deviation 41.9 (36.4-46.3) fL RDW Coeff of Mary 12.9 (11.5-14.5) % Plt Count 131 (130-400) K/uL MPV 12.3 H (7.4-10.4) fL Immature Gran % (Auto) 0.3 % Neut % (Auto) 85.4 % Lymph % (Auto) 5.8 % Jay % (Auto) 8.4 % Eos % (Auto) 0.0 % Baso % (Auto) 0.1 % Neut # (Auto) 8.80 H (1.4-6.5) K/uL Lymph # (Auto) 0.60 L (1.2-3.4) K/uL Jay # (Auto) 0.87 H (0.11-0.59) K/uL Eos # (Auto) 0.00 (0-0.5) K/uL Baso # (Auto) 0.01 (0-0.2) K/uL Immature Gran # (Auto) 0.03 H (0.00-0.02) K/uL Platelet Estimate (Normal) PT 11.1 (9.0-12.0) Seconds INR 1.1 (0.9-1.1) APTT 24.2 (21.0-31.0) Seconds PTT Ratio 0.9 Activ Coag Time Kaolin (94-140) SECONDS Fibrinogen (184-400) mg/dl POC pH (7.35-7.45) POC pCO2 (35-46) mmHg POC pO2 (80-95) mmHg POC HCO3 (19-24) sanket/L POC Total CO2 (24-31) mmol/L POC Base Excess (-9-1.8) sanket/L POC ABG O2 Sat (90-95) % POC Sodium (135-144) mmol/L Sodium 142 (136-145) mmol/L POC Potassium (3.3-5.0) mmol/L Potassium 4.3 (3.5-5.1) mmol/L Chloride 112 H (98-107) mmol/L Carbon Dioxide 22 (21-32) mmol/L Anion Gap 8.0 (3-11) BUN 16 (7-18) mg/dl Creatinine 1.05 (0.6-1.4) mg/dl Est Cr Clr Drug Dosing 70.0 ml/min Est GFR ( Amer) 90.9 Est GFR (Non-Af Amer) 78.4 BUN/Creatinine Ratio 15.1 (10-20) Glucose 100 H (70-99) mg/dl POC Glucose (70-99) mg/dl Calcium 7.6 L (8.5-10.1) mg/dl Phosphorus 5.4 H (2.5-4.9) mg/dl Magnesium 1.9 (1.8-2.4) mg/dl Blood Type Antibody Screen 12/05/19 12/05/19 12/05/19 Range/Units 23:56 23:52 21:28 WBC (4.8-10.8) K/uL RBC (4.7-6.1) M/uL Hgb 12.2 L (14.0-18.0) g/dL POC Hgb (14.0-18.0) g/dl Hct 37.1 L (42-52) % POC Hct (42-52) % MCV (80-100) fL MCH (25-34) pg MCHC (32-36) g/dL RDW Std Deviation (36.4-46.3) fL RDW Coeff of Mary (11.5-14.5) % Plt Count (130-400) K/uL MPV (7.4-10.4) fL Immature Gran % (Auto) % Neut % (Auto) % Lymph % (Auto) % Jay % (Auto) % Eos % (Auto) % Baso % (Auto) % Neut # (Auto) (1.4-6.5) K/uL Lymph # (Auto) (1.2-3.4) K/uL Jay # (Auto) (0.11-0.59) K/uL Eos # (Auto) (0-0.5) K/uL Baso # (Auto) (0-0.2) K/uL Immature Gran # (Auto) (0.00-0.02) K/uL Platelet Estimate (Normal) PT (9.0-12.0) Seconds INR (0.9-1.1) APTT (21.0-31.0) Seconds PTT Ratio Activ Coag Time Kaolin (94-140) SECONDS Fibrinogen 280 (184-400) mg/dl POC pH (7.35-7.45) POC pCO2 (35-46) mmHg POC pO2 (80-95) mmHg POC HCO3 (19-24) sanket/L POC Total CO2 (24-31) mmol/L POC Base Excess (-9-1.8) sanket/L POC ABG O2 Sat (90-95) % POC Sodium (135-144) mmol/L Sodium (136-145) mmol/L POC Potassium (3.3-5.0) mmol/L Potassium (3.5-5.1) mmol/L Chloride (98-107) mmol/L Carbon Dioxide (21-32) mmol/L Anion Gap (3-11) BUN (7-18) mg/dl Creatinine (0.6-1.4) mg/dl Est Cr Clr Drug Dosing ml/min Est GFR ( Amer) Est GFR (Non-Af Amer) BUN/Creatinine Ratio (10-20) Glucose (70-99) mg/dl POC Glucose 98 (70-99) mg/dl Calcium (8.5-10.1) mg/dl Phosphorus (2.5-4.9) mg/dl Magnesium (1.8-2.4) mg/dl Blood Type Antibody Screen 12/05/19 12/05/19 12/05/19 Range/Units 19:00 19:00 18:21 WBC 9.50 (4.8-10.8) K/uL RBC 4.79 (4.7-6.1) M/uL Hgb 13.6 L (14.0-18.0) g/dL POC Hgb (14.0-18.0) g/dl Hct 42.4 (42-52) % POC Hct (42-52) % MCV 88.5 (80-100) fL MCH 28.4 (25-34) pg MCHC 32.1 (32-36) g/dL RDW Std Deviation 41.3 (36.4-46.3) fL RDW Coeff of Mary 12.8 (11.5-14.5) % Plt Count 129 L (130-400) K/uL MPV 13.0 H (7.4-10.4) fL Immature Gran % (Auto) % Neut % (Auto) % Lymph % (Auto) % Jay % (Auto) % Eos % (Auto) % Baso % (Auto) % Neut # (Auto) (1.4-6.5) K/uL Lymph # (Auto) (1.2-3.4) K/uL Jay # (Auto) (0.11-0.59) K/uL Eos # (Auto) (0-0.5) K/uL Baso # (Auto) (0-0.2) K/uL Immature Gran # (Auto) (0.00-0.02) K/uL Platelet Estimate Decreased L (Normal) PT (9.0-12.0) Seconds INR (0.9-1.1) APTT (21.0-31.0) Seconds PTT Ratio Activ Coag Time Kaolin 142 H (94-140) SECONDS Fibrinogen (184-400) mg/dl POC pH (7.35-7.45) POC pCO2 (35-46) mmHg POC pO2 (80-95) mmHg POC HCO3 (19-24) sanket/L POC Total CO2 (24-31) mmol/L POC Base Excess (-9-1.8) sanket/L POC ABG O2 Sat (90-95) % POC Sodium (135-144) mmol/L Sodium (136-145) mmol/L POC Potassium (3.3-5.0) mmol/L Potassium (3.5-5.1) mmol/L Chloride (98-107) mmol/L Carbon Dioxide (21-32) mmol/L Anion Gap (3-11) BUN (7-18) mg/dl Creatinine (0.6-1.4) mg/dl Est Cr Clr Drug Dosing ml/min Est GFR ( Amer) Est GFR (Non-Af Amer) BUN/Creatinine Ratio (10-20) Glucose (70-99) mg/dl POC Glucose (70-99) mg/dl Calcium (8.5-10.1) mg/dl Phosphorus (2.5-4.9) mg/dl Magnesium (1.8-2.4) mg/dl Blood Type A Positive Antibody Screen NEGATIVE 12/05/19 12/05/19 12/05/19 Range/Units 18:16 15:59 14:54 WBC (4.8-10.8) K/uL RBC (4.7-6.1) M/uL Hgb (14.0-18.0) g/dL POC Hgb 13.9 L (14.0-18.0) g/dl Hct (42-52) % POC Hct 41 L (42-52) % MCV (80-100) fL MCH (25-34) pg MCHC (32-36) g/dL RDW Std Deviation (36.4-46.3) fL RDW Coeff of Mary (11.5-14.5) % Plt Count (130-400) K/uL MPV (7.4-10.4) fL Immature Gran % (Auto) % Neut % (Auto) % Lymph % (Auto) % Jay % (Auto) % Eos % (Auto) % Baso % (Auto) % Neut # (Auto) (1.4-6.5) K/uL Lymph # (Auto) (1.2-3.4) K/uL Jay # (Auto) (0.11-0.59) K/uL Eos # (Auto) (0-0.5) K/uL Baso # (Auto) (0-0.2) K/uL Immature Gran # (Auto) (0.00-0.02) K/uL Platelet Estimate (Normal) PT (9.0-12.0) Seconds INR (0.9-1.1) APTT (21.0-31.0) Seconds PTT Ratio Activ Coag Time Kaolin 268 H 257 H (94-140) SECONDS Fibrinogen (184-400) mg/dl POC pH 7.31 L (7.35-7.45) POC pCO2 43 (35-46) mmHg POC pO2 183 H (80-95) mmHg POC HCO3 21 (19-24) sanket/L POC Total CO2 23 L (24-31) mmol/L POC Base Excess -5.0 (-9-1.8) sanket/L POC ABG O2 Sat 100.0 H (90-95) % POC Sodium 138 (135-144) mmol/L Sodium (136-145) mmol/L POC Potassium 3.6 (3.3-5.0) mmol/L Potassium (3.5-5.1) mmol/L Chloride (98-107) mmol/L Carbon Dioxide (21-32) mmol/L Anion Gap (3-11) BUN (7-18) mg/dl Creatinine (0.6-1.4) mg/dl Est Cr Clr Drug Dosing ml/min Est GFR ( Amer) Est GFR (Non-Af Amer) BUN/Creatinine Ratio (10-20) Glucose (70-99) mg/dl POC Glucose (70-99) mg/dl Calcium (8.5-10.1) mg/dl Phosphorus (2.5-4.9) mg/dl Magnesium (1.8-2.4) mg/dl Blood Type Antibody Screen Coding Level of Care Code 90113 Subseq Hosp Care Lvl 3 Diagnoses Pericardial effusion with cardiac tamponade I31.3; I31.4 Non-ST elevation AL (NSTEMI) I21.4 CAD (coronary artery disease) I25.10 Unstable angina pectoris due to coronary arteriosclerosis I25.110 Hypercholesterolemia E78.00
[2019-12-06 10:14] LABS: Hematocrit (blood only) 33.3 % (42-52); Hemoglobin 11.1 g/dL (14.0-18.0)
--- NOTE | 2019-12-06 10:17 | Cardiology Progress Note ---
Date of Service December 06, 2019 Assessment & Plan (1) Pericardial effusion with cardiac tamponade: 2. Multivessel coronary artery disease post PCI to RCA, LAD 3. Acute blood loss anemia 4. Dyslipidemia Hemodynamically stable this morning. Pericardial drain output seems to have decreased. Repeat echocardiogram shows scant remaining pericardial effusion. No significant fluid from pericardial drain this morning with attempts at manual suction. We will plan on repeat attempt at manual suction around noon. If no significant output at that time we will plan to remove pericardial drain. Continue DAPT with aspirin, ticagrelor. Continue to hold metoprolol. Continue colchicine. Addendum: Minimal additional pericardial drain output this afternoon. Pericardial drain removed without issue. Admission and Anticipated Discharge Date Admission Date: December 02, 2019 Subjective Patient endorses chest discomfort with taking a deep breath then since pericardial drain in place. Otherwise no significant pain at right wrist, right common femoral artery access site. Telemetry unremarkable. Has put out more than 1200 cc from pericardial drain. Since 7 AM this morning no additional output. Repeat echocardiogram reviewed scant remaining pericardial effusion. Review of Systems Review of Systems: All systems reviewed & are unremarkable except as noted in HPI & below Physical Exam Physical Exam: General: Uncomfortable, no acute distress HEENT: Sclerae anicteric, mucous membranes moist Lungs: Clear to auscultation bilaterally Cardiac: Regular rate and rhythm, 2/6 systolic ejection murmur, no rubs Abdomen: Soft, nontender, nondistended, positive bowel sounds. Extremities: Warm, well perfused, no edema. Right radial artery access site with minimal ecchymosis, no hematoma. Distal pulse and sensation intact. 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 Neuro: Nonfocal Psych: Alert orient x3, normal affect and mood Results & Data ([facility]) Vital Signs (Past 12 Hours) Vital Signs Pulse Pulse Resp BP BP Pulse Ox 12/06/19 04:36 71 21 100/60 97 12/06/19 04:30 75 15 98 12/06/19 04:06 69 15 110/67 97 12/06/19 04:00 72 3 L 97 12/06/19 03:36 73 13 114/64 97 12/06/19 03:30 75 18 98 12/06/19 03:06 81 17 114/71 98 12/06/19 03:00 81 18 97 12/06/19 02:36 79 9 L 110/70 96 07/07/20 02:30 93 H 5 L 96 12/06/19 02:07 63 14 97 12/06/19 02:06 96 H 18 115/71 98 12/06/19 01:36 65 17 116/72 97 12/06/19 01:35 73 12/06/19 01:30 67 17 96 12/06/19 01:05 80 21 116/78 97 12/06/19 00:35 87 21 112/72 97 12/06/19 00:05 77 4 L 109/71 96 12/05/19 23:59 86 105/71 96 12/05/19 23:35 93 H 105/71 96 12/05/19 23:30 96 H 95 12/05/19 23:18 100 H 12 108/72 96 12/05/19 23:16 101 H 83/60 L 96 12/05/19 23:06 120 H 83/60 L 96 12/05/19 23:03 117 H 14 100/76 97 12/05/19 23:00 115 H 14 97 12/05/19 22:38 89 14 96 12/05/19 22:35 87 11 L 109/77 96 12/05/19 22:30 88 16 97 PG Care Time/CCT Total # of Minutes Spent Total Time Spent with Patient: Total time spent is greater than 50% in coordination of care (as documented) at patient's floor/unit and/or counseling patient: Coding Level of Care Code 95388 Subseq Hosp Care Lvl 3 Diagnoses Pericardial effusion with cardiac tamponade I31.3; I31.4
[2019-12-06] MEDS: FAMOTIDINE 20 MG TAB PO SCH ×2 (11:53→21:09)
[2019-12-06 16:03] LABS: Hematocrit (blood only) 33.1 % (42-52); Hemoglobin 10.9 g/dL (14.0-18.0)
--- NOTE | 2019-12-06 16:52 | XCELERA ---
[id number] \\[id number]_[id number]
--- NOTE | 2019-12-06 18:17 | Hospitalist Progress Note ---
Date of Service December 06, 2019 Assessment & Plan (1) Unstable angina pectoris due to coronary arteriosclerosis: LHC: Severe multivessel coronary artery disease -95% acute distal RCA, 95% focal right posterior AV branch 70% mid LAD at takeoff of first diagonal with 80% proximal stenosis - Small circumflex with 60% proximal OM1 disease 2. Normal intracardiac filling pressure 3. Successful PCI of acute distal RCA stenosis with single drug-eluting stent (3.5 x 18 mm [place]). 4. Successful PCI of right posterior AV branch with single drug-eluting stent (2.5 x 12 mm [place]). On Thursday, 1. Successful PCI of mid LAD with single drug-eluting stent (2.5 x 15 mm [place]). 2. Successful PCI of proximal first diagonal with single drug-eluting stent (2.25 x 18 mm [place]). 3. Procedure complicated by distal wire perforation involving very small (<1 mm) branch of first diagonal. Trace pericardial effusion on echocardiogram. ---continue close observation and serial exams, echo, as per cardiology. continue med management and secondary risk reduction for CAD. Hypokalemia- replaced. (2) Pericardial effusion with cardiac tamponade: drain in place, overall stable. serial exams, echo Admission and Anticipated Discharge Date Admission Date: December 02, 2019 Subjective sleeping comfortably when i see him. d/w nursing -no new problems and overall has been stable and pain free today. was planning on having him OOB for much of the afternoon. no new needs identified. Physical Exam Physical Exam: gen asleep but nad. heent nc at mmm breathing unlabored no accessory muscles good effort skin no rashes no pallor or icterus neuro no focal deficits at rest. Results & Data Results & Data ([facility]) Vital Signs (Past 12 Hours) Vital Signs Pulse Resp BP Pulse Ox 12/06/19 18:00 85 18 12/06/19 17:30 85 18 12/06/19 17:06 90 17 123/57 L 97 12/06/19 17:00 83 25 H 96 12/06/19 16:36 85 22 112/62 97 12/06/19 16:30 94 H 21 96 12/06/19 16:00 74 21 96 12/06/19 15:36 78 24 101/55 L 97 12/06/19 15:30 73 25 H 97 12/06/19 15:06 75 21 114/68 97 12/06/19 15:00 67 17 98 12/06/19 14:37 71 17 97 12/06/19 14:36 74 22 110/67 97 12/06/19 14:30 72 19 97 12/06/19 14:06 78 23 108/62 96 12/06/19 14:00 70 22 96 12/06/19 13:36 73 22 107/58 L 97 12/06/19 13:30 68 20 96 12/06/19 13:06 70 3 L 104/63 97 12/06/19 13:00 71 4 L 96 12/06/19 12:36 69 22 106/60 97 12/06/19 12:30 79 26 H 98 12/06/19 12:06 76 10 L 112/62 97 12/06/19 12:00 78 6 L 99 12/06/19 11:36 80 25 H 121/69 98 12/06/19 11:30 73 10 L 97 12/06/19 11:06 73 14 103/64 97 12/06/19 11:00 71 8 L 98 12/06/19 10:36 74 6 L 100/61 94 12/06/19 10:30 65 3 L 97 12/06/19 10:06 64 23 109/62 97 12/06/19 10:00 75 17 98 12/06/19 09:36 67 3 L 103/64 97 12/06/19 09:30 74 20 97 12/06/19 09:06 79 2 L 115/65 96 12/06/19 09:00 81 21 98 12/06/19 08:36 79 19 113/65 97 12/06/19 08:30 75 20 99 12/06/19 08:06 78 18 119/66 97 12/06/19 08:00 84 17 97 12/06/19 07:36 81 22 117/61 98 12/06/19 07:30 84 12 98 12/06/19 07:06 83 8 L 112/64 98 12/06/19 07:00 84 19 97 12/06/19 06:45 81 20 98 PG Care Time/CCT Total # of Minutes Spent Total Time Spent with Patient: Total time spent is greater than 50% in coordination of care (as documented) at patient's floor/unit and/or counseling patient: Coding Level of Care Code 09659 Subseq Hosp Care Lvl 1 Diagnoses Unstable angina pectoris due to coronary arteriosclerosis I25.110 Pericardial effusion with cardiac tamponade I31.3; I31.4
[2019-12-06 21:57] LABS: Hematocrit (blood only) 30.4 % (42-52); Hemoglobin 10.4 g/dL (14.0-18.0)
--- NOTE | 2019-12-07 00:04 | Electrocardiogram Report ---
Test Reason : Blood Pressure : / mmHG Vent. Rate : 068 BPM Atrial Rate : 068 BPM P-R Int : 108 ms QRS Dur : 116 ms QT Int : 404 ms P-R-T Axes : 075 084 007 degrees QTc Int : 429 ms Sinus rhythm with short TX Possible Left atrial enlargement Right bundle branch block Abnormal ECG When compared with ECG of 02-DEC-2019 20:31, Minimal criteria for Septal infarct are no longer Present Confirmed by Manny Gonzalez ([id number]) on 12/07/2019 12:04:15 AM Referred By: REFERRED SELF Confirmed By:Manny Gonzalez
--- NOTE | 2019-12-07 00:08 | Electrocardiogram Report ---
Test Reason : Blood Pressure : / mmHG Vent. Rate : 094 BPM Atrial Rate : 094 BPM P-R Int : 120 ms QRS Dur : 128 ms QT Int : 374 ms P-R-T Axes : 070 043 -34 degrees QTc Int : 467 ms Normal sinus rhythm Right bundle branch block T wave abnormality, consider inferior ischemia Abnormal ECG When compared with ECG of 05-DEC-2019 17:26, T wave inversion more evident in Inferior leads Confirmed by Manny Gonzalez ([id number]) on 12/07/2019 12:07:49 AM Referred By: REFERRED SELF Confirmed By:Manny Gonzalez
[2019-12-07 04:54] LABS: Hematocrit (blood only) 31.9 % (42-52); Hemoglobin 10.5 g/dL (14.0-18.0); Immature Granulocytes # (auto) 0.03 K/uL (0.00-0.02); Immature Granulocytes % (auto) 0.3 %; Lymphocytes # (auto) 1.16 K/uL (1.2-3.4); Lymphocytes % (auto) 11.4 %; Mean Corpuscular Hemoglobin 29.1 pg (25-34); Mean Corpuscular Hgb Conc 32.9 g/dL (32-36); Mean Corpuscular Volume 88.4 fL (80-100); Mean Platelet Volume 12.4 fL (7.4-10.4); Monocytes # (auto) 1.22 K/uL (0.11-0.59); Neutrophils # (auto) 7.76 K/uL (1.4-6.5); Neutrophils % (auto) 76.3 %; Platelet Count 133 K/uL (130-400); RDW Coefficient of Variation 12.7 % (11.5-14.5); RDW Standard Deviation 41.4 fL (36.4-46.3); Red Blood Count 3.61 M/uL (4.7-6.1); White Blood Count 10.17 K/uL (4.8-10.8)
[2019-12-07 05:38] LABS: BUN Creatinine Ratio 14.3 (10-20); Creatinine Clr Calc Pharmacy 68.7 ml/min; Est GFR (African American) 88.8; Est GFR (Non-African American) 76.7; Magnesium 1.9 mg/dl (1.8-2.4); Potassium 3.8 mmol/L (3.5-5.1)
[2019-12-07 05:42] LABS: Phosphorus 2.2 mg/dl (2.5-4.9)
[2019-12-07] MEDS ORDERED: POTASSIUM PHOS 3 MMOL/1 ML INFUSION IV STA (06:06)
[2019-12-07] MEDS ORDERED: POTASSIUM PHOSPHATE 9 MMOL in SODIUM CHLORIDE 0.9% 250 ML IV ONE (06:45)
[2019-12-07] MEDS: FAMOTIDINE 20 MG TAB PO SCH ×2 (07:41→20:39)
[2019-12-07] MEDS: ATORVASTATIN 40 MG TAB PO SCH (07:41)
[2019-12-07] MEDS: ASPIRIN 81 MG ECTAB PO SCH (07:41)
[2019-12-07] MEDS: COLCHICINE 0.6 MG TAB PO SCH ×2 (07:41→20:39)
[2019-12-07] MEDS: TICAGRELOR 90 MG TAB PO SCH ×2 (07:46→22:06)
--- NOTE | 2019-12-07 09:04 | XCELERA ---
[id number] \\[id number]_Reports\[id number]
--- NOTE | 2019-12-07 09:08 | Cardiology Progress Note ---
Date of Service December 07, 2019 Assessment & Plan (1) Pericardial effusion with cardiac tamponade: 2. Multivessel coronary artery disease post PCI to RCA, LAD 3. Acute blood loss anemia 4. Dyslipidemia Hemodynamically stable Repeat Echo from this morning reviewed -- Only trivial pericardial effusion. No evidence of tamponade. -- Continue DAPT with aspirin, ticagrelor -- resume low dose beta-sindhu -- continue statin -- continue colchicine --> d/c on once daily. -- transfer to telemetry today. up walking halls this afternoon. hopefully home tomorrow. Admission and Anticipated Discharge Date Admission Date: December 02, 2019 Subjective Feeling better today. Minimal chest discomfort. Up in chair yesterday afternoon. Appetite improving. telemetry reviewed -- no events. Review of Systems Review of Systems: All systems reviewed & are unremarkable except as noted in HPI & below Physical Exam Physical Exam: General: comfortable, no acute distress HEENT: Sclerae anicteric, mucous membranes moist Lungs: Clear to auscultation bilaterally Cardiac: Regular rate and rhythm, no rubs Abdomen: Soft, nontender, nondistended, positive bowel sounds. Extremities: Warm, well perfused, no edema. Right radial artery access site with minimal ecchymosis, no hematoma. Distal pulse and sensation intact. 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 Pericardial drain site with no surrounding erythema or induration. Neuro: Nonfocal Psych: Alert orient x3, normal affect and mood Results & Data ([facility]) Vital Signs (Past 12 Hours) Vital Signs Temp Pulse Resp BP Pulse Ox 12/07/19 08:19 93 H 19 105/62 97 12/07/19 08:00 99.3 F 97 H 18 95 12/07/19 07:19 95 H 14 102/56 L 12/07/19 07:00 90 16 12/07/19 06:00 98.2 F 77 8 L 12/07/19 05:19 86 21 113/64 12/07/19 05:00 84 21 12/07/19 04:19 103 H 15 100/59 L 12/07/19 04:00 93 H 0 L 12/07/19 03:00 80 0 L 12/07/19 02:00 79 12 12/07/19 01:00 76 19 12/07/19 00:00 78 17 12/06/19 23:00 76 22 12/06/19 22:00 78 15 PG Care Time/CCT Total # of Minutes Spent Total Time Spent with Patient: Total time spent is greater than 50% in coordination of care (as documented) at patient's floor/unit and/or counseling patient: Coding Level of Care Code 76872 Subseq Hosp Care Lvl 3 Diagnoses Pericardial effusion with cardiac tamponade I31.3; I31.4
--- NOTE | 2019-12-07 10:12 | Critical Care Progress Note ---
Date of Service December 07, 2019 Assessment & Plan (1) Pericardial effusion with cardiac tamponade: Reason Critically Ill: 59-year-old male with severe CAD, admitted for an NSTEMI with heart cath x2 and PCI x4 on this admission, presents to the ICU following PCI to LAD x1 and PCI to proximal first diagonal x1 with complication of pericardial effusion with tamponade requiring pericardiocentesis with pericardial drain. Neuro - [facility] ICU: Negative Cardiac - Pericardial effusion with evidence of tamponadesecondary to perforation of small diagonal during heart cath, now status post pericardiocentesis with pericardial drain: Improved and discontinued -EBL of 550, hemoglobin stable -Heparin drip discontinued, reversed with protamine sulfate -Cardiology managing pericardial drain, currently to gravity -Minimal drainage at this time -Follow-up repeat echo performed. -Started on colchicine twice daily CAD/N STEMI/HLDpatient underwent cath on 12/02 with PCI RCA x1 and right posterior AV branch x1; 12/04 underwent PCI to LAD x1 and PCI to proximal first diagonal x1 -Complicated by [place] of small diagonal with pericardial effusion, see above -We will continue ASA and Brilinta with caution per cardiology recommendation, continue Lipitor -Heparin drip discontinued, Respiratory - Currently maintaining sats on room air, no history respiratory disease GI - Heart healthy diet RENAL/LYTES - Replace as needed - Strict I's and O's ENDO - No history of diabetes or thyroid disease ICU hyperglycemic protocol HEME - Acute bleedsecondary to perforated coronary artery with pericardial effusion, see treatment above -We will continue Brilinta and aspirin with caution -No indication for transfusion at this time, patient is typed and screened, will transfuse if indicated ID - No indication for infectious process at this time LINES/IV ACCESS - Peripheral IVs DVT PROPHYLAXIS - SCDs, holding anticoagulation for acute bleed (2) Non-ST elevation CO (NSTEMI): (3) CAD (coronary artery disease): (4) Unstable angina pectoris due to coronary arteriosclerosis: (5) Hypercholesterolemia: Admission and Anticipated Discharge Date Admission Date: December 02, 2019 Subjective Chest pain improved after removal of drain Physical Exam Physical Exam: General: Alert. nontoxic. Skin: Warm, dry, Head: Atraumatic Ears, nose, mouth and throat: airway patent Cardiovascular: Normal peripheral perfusion Respiratory: no respiratory distress Gastrointestinal: Non distended Musculoskeletal: No deformity Results & Data Results & Data ([facility]) Vital Signs (Past 12 Hours) Vital Signs Temp Pulse Resp BP Pulse Ox 12/07/19 08:19 93 H 19 105/62 97 12/07/19 08:00 37.4 C 97 H 18 95 12/07/19 07:19 95 H 14 102/56 L 12/07/19 07:00 90 16 12/07/19 06:00 36.8 C 77 8 L 12/07/19 05:19 86 21 113/64 12/07/19 05:00 84 21 12/07/19 04:19 103 H 15 100/59 L 12/07/19 04:00 93 H 0 L 12/07/19 03:00 80 0 L 12/07/19 02:00 79 12 12/07/19 01:00 76 19 12/07/19 00:00 78 17 12/06/19 23:00 76 22 Coding Level of Care Code 96654 Subseq Hosp Care Lvl 1 Diagnoses Pericardial effusion with cardiac tamponade I31.3; I31.4 Non-ST elevation CO (NSTEMI) I21.4 CAD (coronary artery disease) I25.10 Unstable angina pectoris due to coronary arteriosclerosis I25.110 Hypercholesterolemia E78.00
--- NOTE | 2019-12-07 16:01 | Hospitalist Progress Note ---
Date of Service December 07, 2019 Assessment & Plan (1) Pericardial effusion with cardiac tamponade: 72-year-old male with past medical history CAD here initially for an NSTEMI status post heart cath x2 and PCI x4 now in ICU following PCI to LAD x1 and PCI to proximal first diagonal x1 with complications of pericardial effusion with tamponade secondary to distal wire perforation requiring pericardiocentesis with pericardial drain. Severe CAD/NSTEMI/pericardial effusion with cardiac tamponade -patient underwent cath on 12/02 with PCI RCA x1 and right posterior AV branch x1; 12/04 underwent PCI to LAD x1 and PCI to proximal first diagonal x1. Complicated by perf of small diagonal with pericardial effusion -Repeat echo this a.m. to assess for pericardial effusion reviewedtrivial pericardial effusion. No evidence of tamponade. Normal LV size, mild concentric LVH. LVEF 65 to 70%. No regional wall motion abnormalities. Mildly dilated RV with normal function. -Drain removed -Medical management with DAPT (aspirin, Brilinta), Metroprolol tartrate 12.5 mg twice daily, atorvastatin 40 mg, colchicine 0.6 mg twice daily (will discharge on once daily dosing) FEN/GI: HH diet DVT prophylaxis: Chemoprophylaxis deferred Full code Dispo: Stable downgrade out of ICU to PCU telemetry. Hopefully discharge tomorrow Admission and Anticipated Discharge Date Admission Date: December 02, 2019 Supervising Physician Co-Signing Physician Notes I personally examined the patient and verified all luther points of history and exam, discussed case, and agree with decision making with Dr Marques. resting comfortably. no distress. vitals noted nad heent nc at mmm breathing unlabored no accessory muscles good effort skin no rashes no pallor or icterus CAD/W[place]/s/p stent and small perforation - doing well. per cardiology. otherwise as above Subjective 59-year-old male found in bed this morning in no acute distress. No acute overnight events. Patient notes that this morning was his best morning to date since admission. Patient denies any chest pain shortness of breath palpitations syncope or near syncope or edema. Tolerating p.o. intake. Patient with no other acute concerns or complaints. Review of Systems Review of Systems: All systems reviewed & are unremarkable except as noted in HPI & below Physical Exam Constitutional: WD/WN, vitals as above Eyes: PERRL, conjunctivae normal, anicteric sclerae ENMT: external ear and nose normal, oropharynx normal Respiratory: normal respiratory effort, lungs clear to auscultation Cardiovascular: RRR, no murmur, no edema Gastrointestinal (Abdomen): normal bowel sounds, soft, nontender, no hepatosplenomegaly Skin: no rashes, warm and dry Psychiatric: A+Ox3, euthymic affect Results & Data Results & Data ([facility]) Vital Signs (Past 12 Hours) Vital Signs Temp Pulse Resp BP Pulse Ox 12/07/19 14:30 81 23 12/07/19 14:00 86 20 12/07/19 13:30 86 24 12/07/19 13:00 91 H 22 94 12/07/19 12:30 89 24 12/07/19 12:02 98 H 14 101/61 12/07/19 12:00 37.2 C 90 15 95 12/07/19 11:30 78 18 12/07/19 11:00 83 22 12/07/19 10:29 103 H 22 12/07/19 09:19 88 20 117/65 97 12/07/19 09:00 88 18 95 12/07/19 08:19 93 H 19 105/62 97 12/07/19 08:00 37.4 C 97 H 18 95 12/07/19 07:19 95 H 14 102/56 L 12/07/19 07:00 90 16 12/07/19 06:00 36.8 C 77 8 L 12/07/19 05:19 86 21 113/64 12/07/19 05:00 84 21 12/07/19 04:19 103 H 15 100/59 L 12/07/19 04:00 93 H 0 L Laboratory Results Laboratory Results - last 24 hr 12/06/19 12/06/19 12/07/19 15:48 21:46 04:24 WBC 10.17 RBC 3.61 L Hgb 10.9 L 10.4 L 10.5 L Hct 33.1 L 30.4 L 31.9 L MCV 88.4 MCH 29.1 MCHC 32.9 RDW Std Deviation 41.4 RDW Coeff of Mary 12.7 Plt Count 133 MPV 12.4 H Immature Gran % (Auto) 0.3 Neut % (Auto) 76.3 Lymph % (Auto) 11.4 Tyrrell % (Auto) 12.0 Eos % (Auto) 0.0 Baso % (Auto) 0.0 Neut # (Auto) 7.76 H Lymph # (Auto) 1.16 L Tyrrell # (Auto) 1.22 H Eos # (Auto) 0.00 Baso # (Auto) 0.00 Immature Gran # (Auto) 0.03 H Sodium Potassium Chloride Carbon Dioxide Anion Gap BUN Creatinine Est Cr Clr Drug Dosing Est GFR ( Amer) Est GFR (Non-Af Amer) BUN/Creatinine Ratio Glucose Calcium Phosphorus Magnesium 12/07/19 04:24 WBC RBC Hgb Hct MCV MCH MCHC RDW Std Deviation RDW Coeff of Mary Plt Count MPV Immature Gran % (Auto) Neut % (Auto) Lymph % (Auto) Tyrrell % (Auto) Eos % (Auto) Baso % (Auto) Neut # (Auto) Lymph # (Auto) Tyrrell # (Auto) Eos # (Auto) Baso # (Auto) Immature Gran # (Auto) Sodium 139 Potassium 3.8 Chloride 106 Carbon Dioxide 30 Anion Gap 4.0 BUN 15 Creatinine 1.07 Est Cr Clr Drug Dosing 68.7 Est GFR ( Amer) 88.8 Est GFR (Non-Af Amer) 76.7 BUN/Creatinine Ratio 14.3 Glucose 107 H Calcium 8.0 L Phosphorus 2.2 L D Magnesium 1.9 Medications Administered Current Inpatient Medications Acetaminophen (Tylenol) 650 mg PO Q4H PRN PRN Reason: Pain or Fever Stop: 01/02/20 00:26 Last Admin: 12/05/19 21:23 Dose: 650 mg Documented by: Al Hydrox/Mg Hydrox/Simethicone (Maalox) 15 ml PO Q4H PRN PRN Reason: Dyspepsia Stop: 01/02/20 00:26 Aspirin (Ecotrin Ectab) [facility] [place] Stop: 01/02/20 08:59 Last Admin: 12/07/19 07:41 Dose: 81 mg Documented by: Atorvastatin Calcium (Lipitor) 40 mg PO QAM [facility] Stop: 01/03/20 08:59 Last Admin: 12/07/19 07:41 Dose: 40 mg Documented by: Colchicine (Colcrys) 0.6 mg PO BID [facility] Stop: 01/04/20 20:59 Last Admin: 12/07/19 07:41 Dose: 0.6 mg Documented by: Famotidine (Pepcid) 20 mg PO BID [facility] Stop: 01/05/20 10:29 Last Admin: 12/07/19 07:41 Dose: 20 mg Documented by: Metoprolol Tartrate (Lopressor) 12.5 mg PO BID [facility] Stop: 01/02/20 20:59 Last Admin: 12/06/19 09:08 Dose: 12.5 mg Documented by: Nitroglycerin (Nitrostat) 0.4 mg UD PRN PRN Reason: Chest Pain Stop: 01/02/20 00:26 Ticagrelor (Brilinta) 90 mg PO BID [facility] Stop: 01/02/20 20:59 Last Admin: 12/07/19 07:46 Dose: 90 mg Documented by: Resident Activity Tracking Resident Involvement: Resident Care Provided Care Provided: Adult Hospital Medicine
--- NOTE | 2019-12-07 18:27 | Billing Data ---
Date of Service December 07, 2019 Coding Level of Care Code 99828 Subseq Hosp Care Lvl 1
[2019-12-07] MEDS: METOPROLOL TARTRATE 25 MG TAB PO SCH (20:39)
[2019-12-08] MEDS: FAMOTIDINE 20 MG TAB PO SCH (08:09)
[2019-12-08] MEDS: METOPROLOL TARTRATE 25 MG TAB PO SCH (08:09)
[2019-12-08] MEDS: COLCHICINE 0.6 MG TAB PO SCH (08:09)
[2019-12-08] MEDS: TICAGRELOR 90 MG TAB PO SCH (08:09)
[2019-12-08] MEDS: ASPIRIN 81 MG ECTAB PO SCH (08:09)
[2019-12-08] MEDS: ATORVASTATIN 40 MG TAB PO SCH (08:09)
[2019-12-08 08:11] LABS: BUN Creatinine Ratio 14.6 (10-20); Calcium 8.3 mg/dl (8.5-10.1); Creatinine Clr Calc Pharmacy 80.8 ml/min; Est GFR (Non-African American) 93.2; Hemoglobin 9.6 g/dL (14.0-18.0); Mean Corpuscular Hemoglobin 29.4 pg (25-34); Mean Corpuscular Hgb Conc 34.3 g/dL (32-36); Mean Corpuscular Volume 85.9 fL (80-100); Mean Platelet Volume 12.5 fL (7.4-10.4); Platelet Count 114 K/uL (130-400); Potassium 3.4 mmol/L (3.5-5.1); RDW Coefficient of Variation 12.7 % (11.5-14.5); RDW Standard Deviation 39.8 fL (36.4-46.3); Red Blood Count 3.26 M/uL (4.7-6.1); White Blood Count 6.97 K/uL (4.8-10.8)
[2019-12-08 08:12] LABS: Eosinophils # (auto) 0.02 K/uL (0-0.5); Eosinophils % (auto) 0.3 %; Immature Granulocytes # (auto) 0.02 K/uL (0.00-0.02); Immature Granulocytes % (auto) 0.3 %; Lymphocytes # (auto) 1.04 K/uL (1.2-3.4); Lymphocytes % (auto) 14.9 %; Monocytes # (auto) 0.67 K/uL (0.11-0.59); Monocytes % (auto) 9.6 %; Neutrophils # (auto) 5.22 K/uL (1.4-6.5); Neutrophils % (auto) 74.9 %; Platelet Estimate Decreased (Normal)
[2019-12-08 08:15] LABS: Phosphorus 2.8 mg/dl (2.5-4.9)
[2019-12-08] MEDS ORDERED: POTASSIUM CHLORIDE 20 MEQ TABCR PO STA (09:13)
--- NOTE | 2019-12-08 11:23 | Discharge Summary ---
Date of Service December 08, 2019 Admission HPI Per Admitting Provider 59 yo M with no PMH presenting to the ED for 2 weeks of worsening chest pain. States the episodes started as being chest discomfort while mowing the lawn and being active, and have progressed to the point of occurring while he is sitting at rest. He denies any radiation of the pain to the left arm, neck or back. He attest to some shortness of breath with the pain and describes the pain as burning in his central chest by his sternum. The episode today occured while he was out camping with friends, and during the event a friend measured his blood pressure and found to be "very elevated" and advised him to come to the ER. Family history significant for multiple first degree family members with HTN, DC, DM2. Pt recently suffered a chainsaw injury to his left knee and hasn't had a Tdap for more than 10 years, will need one on discharge. Principal Diagnosis CAD Discharge Exam Constitutional WD/WN, vitals as above Eyes PERRL, conjunctivae normal, anicteric sclerae ENMT external ear and nose normal, oropharynx normal Respiratory normal respiratory effort, lungs clear to auscultation Cardiovascular RRR, no murmur, no edema Gastrointestinal (Abdomen) normal bowel sounds, soft, nontender, no hepatosplenomegaly Skin no rashes, warm and dry Psychiatric A+Ox3, euthymic affect Discharge Data Allergies Allergy/AdvReac Type Severity Reaction Status Date / Time No Known Allergies Allergy Verified 12/02/19 20:59 Consultations 12/02/19 21:43 ED Decision to Admit Stat 12/03/19 00:27 Consult Cardiology Routine 12/03/19 14:52 Consult Cardiac Rehabilitation Routine 12/05/19 19:08 Consult Corrective Therapy Aide Teacher Routine Procedures Performed Operation Date: 12/03/19 12:35 Actual Procedures p Aspiration/PCI w/LIMA for Stemi - Luis Jefferson MD s Cineradiography w/Routine Exam - Luis Jefferson MD s Cath, Left with Cors and Vent - Luis Jefferson MD Operation Date: 12/05/19 14:30 Actual Procedures s Cath, Left with Cors and Vent - Luis Jefferson MD p Drug Eluting Stent SGl Vessel - Luis Jefferson MD s Cineradiography w/Routine Exam - Luis Jefferson MD Operation Date: 12/05/19 17:45 Actual Procedures p Cineradiography w/Routine Exam - Luis Jefferson MD s Cath, Coronaries ONLY (no LV) - Luis Jefferson MD s Pericardiocentesis Initial - Luis Jefferson MD s Placement Art Occlusive Device - Luis Jefferson MD Ordered Studies 12/03/19 12:36 CL Cath Imgs for PACS use only Stat 12/05/19 07:00 CL Cath Imgs for PACS use only Routine 12/05/19 17:43 CL Cath Imgs for PACS use only Stat Hospital Course (1) Pericardial effusion with cardiac tamponade: 72-year-old male with past medical history CAD here initially for an N STEMI status post heart cath x2 and PCI x4 then in ICU following PCI to LAD x1 and PCI to proximal first diagonal x1 with complications of pericardial effusion with tamponade secondary to distal wire perforation requiring pericardiocentesis with pericardial drain. The following was medical management during stay here: Severe CAD/NSTEMI/pericardial effusion with cardiac tamponade -patient underwent cath on 12/02 with PCI RCA x1 and right posterior AV branch x1; 12/04 underwent PCI to LAD x1 and PCI to proximal first diagonal x1. Complicated by perf of small diagonal with pericardial effusion -Repeat echo to assess for pericardial effusion reviewedtrivial pericardial effusion. No evidence of tamponade. Normal LV size, mild concentric LVH. LVEF 65 to 70%. No regional wall motion abnormalities. Mildly dilated RV with normal function. -Drain removed -Medical management with DAPT (aspirin 81, Brilinta 90 mg twice daily), Metroprolol tartrate 12.5 mg twice daily, atorvastatin 40 mg, colchicine 0.6 mg once daily -Patient to follow-up with cardiology. This has been arranged for December 16, 2019 At time of discharge patient with no other acute concerns or complaints. Total Time Total Time Spent Total Time Spent (In Minutes): >30 Discharge Plan Discharge Items Patient Disposition: Home - Self-Care Reason For Visit: CHEST PAIN Discharge Diagnosis: Coronary artery disease Activity: Per Instructions section Non-emergency contact: Primary Care Provider Call non-emergency contact if: you have any medication questions and your symptoms worsen Follow-up/Referrals: Mervin Dale MD [Physician] - 12/16/19 3:15 pm (Please, follow up at [facility] Office with Dr. Dale on ThursdayDecember 15 at 3:30 pm (arrival 3:15 pm). *The office is located in [address] of [facility], next to this hospital. If you have any questions or need to change/cancel this appointment, call the office at [phone]. It is possible that subsequent visits with Dr. Dale can be arranged at the [facility].) Bryon Phillips, [Primary Care Provider] - 12/12/19 11:00 am (Please, follow up at The [facility] Office with Dr. Bryon Maddox on ThursdayDecember 11 at 11:00 am. *We have no record of you having a primary care provider so that is why we arranged this appointment. Dr. Phillips is available to be your new primary care provider. The office is located at [facility] in [place]. If you have any questions or need to change/cancel this appointment, call the office at [phone].) Diet: Heart Healthy Add Attending Provider Instructions: You were admitted with concern of chest pain. During your admission you received multiple stents in your coronary arteries. Your admission was a little prolonged due to an effusion found around your heart, but this has since resolved. Please follow the below instructions on discharge: You will be going home on numerous new medications to help with your heart heal th You will start aspirin 81 mg daily and Brilinta 90 mg twice a day. These 2 medications are antiplatelet medications that will likely need to be continued for at least 1 year. This will help prevent clotting You will start atorvastatin 40 mg daily. This is a cholesterol medication that will help prevent fat buildup You will continue colchicine 0.6 mg daily. This is an anti-inflammatory me dication that we started due to the effusion around the heart. You will start lisinopril 2.5 mg daily and metoprolol tartrate 12.5 mg twice daily. These medication assist with heart remodeling after any sort of attack These new medications have been sent to your [facility] pharmacy. Please see your PCP for any refills You will follow-up with cardiology on Danii 17,020 at 3:15pm as outlined above You will follow-up with your PCP on December 29, 2019 at 11 AM as outlined above If you have any of the same symptoms of chest pain, shortness of breath that brought you in to the ED in the first place please come back into the emergency room Pending Studies at Discharge: No Stand-Alone Forms: My [facility], Smoking Cessation Medications and DC Order Prescriptions: New aspirin 81 mg tablet,delayed release (DR/EC) 81 mg PO DAILY Qty: 30 RF: 0 ticagrelor 90 mg tablet 90 mg PO BID Qty: 30 RF: 0 metoprolol tartrate 25 mg tablet 12.5 mg PO BID Qty: 30 RF: 0 atorvastatin 40 mg tablet 40 mg PO DAILY Qty: 30 RF: 0 colchicine 0.6 mg capsule 0.6 mg PO DAILY Qty: 30 RF: 0 lisinopril 2.5 mg tablet 2.5 mg PO DAILY Qty: 30 RF: 0 Continued multivitamin Tablet 1 tab PO DAILY RF: 0 activated charcoal [CharcoCaps] 260 mg Capsule 0 mg PO DAILY PRN (Reason: DETOXING PER PT.) RF: 0 Dynamine Suppliment 1 dose PO DIRECTED PRN (Reason: NEEDED) RF: 0 Essential Oils 1 applic topical DIRECTED PRN (Reason: NEEDED) RF: 0 Discharge Orders: Discharge Order (Routine); Ordered 12/08/19 Ordered By: Bebeto Guillen/Other Patient Handouts: Colchicine tablets or capsules, Ticagrelor oral tablet, Metoprolol tablets Admission Data Admit Date/Time: 12/02/19 22:49 Attending Provider: Praful Marino Admit Provider: Donna Tabares Primary Care Provider: Bryon Phillips Other Providers: Mani Colón ; Dex Jones ; Mervin Dale ; Rene Hopkins Other Interventions: Discharge Summary Assessment (RN) Last Done: 12/08/19 11:49 DC Date/Time DO NOT enter until pt leaves facility: 12/08/19 14:33 Supervising Physician Co-Signing Physician Notes I personally examined the patient and verified all luther points of history and exam, discussed case, and agree with decision making with Dr Marques. feeling better and up to going home. no new complaints. extensive discussions on med management and critical importance of adherence, as well as extensive discussions on diet/exercise/stress management and critical role these play in secondary risk reduction as well vitals noted nad heent nc at mmm breathing unlabored no accessory muscles good effort skin no rashes no pallor or icterus CAD/DC/s/p stent and small perforation - doing well. stable for home. extensive discussions on secondary risk reduction as above Resident Activity Tracking Resident Involvement: Resident Care Provided Care Provided: Adult Hospital Medicine
--- NOTE | 2019-12-08 19:18 | Billing Data ---
Date of Service December 08, 2019 Coding Level of Care Code D/C Day Management >30 mins
== END 2019-12-08 14:33 | disposition home or self-care (01) | DRG 271 ==
LOC: ED 20:06 → 2S 22:49 → SUATTDRO 22:49 → 2S 12-03 → 1E 12-05 19:06 → 2S 12-07 17:22
PROC: CLB.CCO (2019-12-05 17:45)

== ENCOUNTER 2020-02-10 14:05 | Inpatient (IN) ==
[2020-02-10 14:42] LABS: Basophils # (auto) 0.01 K/uL (0-0.2); Basophils % (auto) 0.1 %; Eosinophils # (auto) 0.05 K/uL (0-0.5); Eosinophils % (auto) 0.7 %; Hematocrit (blood only) 36.9 % (42-52); Hemoglobin 11.6 g/dL (14.0-18.0); Immature Granulocytes # (auto) 0.01 K/uL (0.00-0.02); Immature Granulocytes % (auto) 0.1 %; Lymphocytes # (auto) 0.93 K/uL (1.2-3.4); Lymphocytes % (auto) 12.8 %; Mean Corpuscular Hgb Conc 31.4 g/dL (32-36); Mean Corpuscular Volume 85.8 fL (80-100); Mean Platelet Volume 12.3 fL (7.4-10.4); Monocytes # (auto) 0.68 K/uL (0.11-0.59); Monocytes % (auto) 9.4 %; Neutrophils # (auto) 5.57 K/uL (1.4-6.5); Neutrophils % (auto) 76.9 %; Platelet Count 183 K/uL (130-400); RDW Coefficient of Variation 14.1 % (11.5-14.5); RDW Standard Deviation 44.2 fL (36.4-46.3); White Blood Count 7.25 K/uL (4.8-10.8)
[2020-02-10 14:48] LABS: INR 1.2 (0.9-1.1); Partial Thromboplastin Time 26.9 Seconds (21.0-31.0); Prothrombin Time 12.1 Seconds (9.0-12.0)
--- NOTE | 2020-02-10 14:49 | Emergency Department Note ---
Impression & Plan Pericardial effusion with cardiac tamponade, Dyspnea, Anemia ED Provider Note NAME: CHAS FRANKLIN AGE: 60 SEX: M ARRIVES VIA: Walk-In INFORMANT: Patient, ED PROVIDER(S): Genaro Ferraro MD CHIEF COMPLAINT: Shortness of breath PLAN: Disposition: Admit MEDICAL DECISION MAKING: The patient is a pleasant 52-year-old gentleman with a past medical history of CAD with staged PCI in November complicated by pericardial effusion/tamponade status post drain who presents emergency department from the cardiology clinic after he had an outpatient echo performed showing reaccumulation of circumferential pericardial effusion with early evidence of tamponade physiology referred to the ED with interventional cardiology, Dr. Jefferson aware evaluating the patient at the bedside with plan for intervention following results of blood work. Patient reports that he has progressively felt increasing shortness of breath but denies any near syncopal episodes. He does report feeling transiently lightheaded when bending down to pick something up but that is the extent of his lightheadedness. He denies any recent fevers, chills, cough, congestion, nausea, vomiting, diarrhea, urinary symptoms. On arrival the patient is fatigued appearing but no acute distress, afebrile with stable vital signs. EKG with no overt electrical alternans. WBC wnl. H/H similar to prior. Platelets wnl. Chemistry without acidosis. Electrolytes and LFTs unremarkable. Troponin n egative. Patient taken direct to cathlab with Dr. Jefferson for pericardia drain. Triage Nursing notes reviewed and agree them. Prior medical records reviewed Vital Signs: reviewed and remarkable for no significant abnormalities Differential diagnosis: Cardiac ischemia, aortic dissection, pulmonary embolism, pneumothorax, pn eumonia, pericarditis, myocarditis, esophageal rupture, GERD, cholecystitis, pancreatitis, musculoskeletal, as well as other pathologies. ER treatment provided: See below. Diagnostics interpreted by me: ECG: Sinus tachycardia, 103 bpm, no ectopy, non specific TWA, No overt ST elevation. Cardiac Monitoring: An order for continuous cardiac monitoring was placed and demonstrated Sinus tachycardia, 103 bpm, no ectopy Laboratory studies: See below Imaging studies: XR chest 1V portable CLINICAL HISTORY: Chest Pain COMPARISON STUDY: Chest radiograph December 05, 2019. FINDINGS: Lung volumes are diminished. Trace right pleural effusion is noted. Bibasilar opacities are present. There is pulmonary vascular congestion with suspected mild pulmonary edema, accentuated on this hypoventilatory study. Enlargement of the cardiac silhouette is also accentuated on this hypoventilatory study. There is no pneumothorax. IMPRESSION: 1. Low lung volumes likely reflects a hypoventilatory study. Mild pulmonary edema. 2. Basilar opacities could reflect atelectasis or consolidation. Radiographic follow-up is recommended. 3. Trace right pleural effusion. HPI: The patient is a pleasant 52-year-old gentleman with a past medical history of CAD with PCI in November complicated by pericardial effusion status post drain who presents emergency department from the cardiology clinic after he had an outpatient echo performed showing circumferential pericardial effusion with evidence of cardiac tamponade referred to the ED with interventional cardiology, Dr. Jefferson aware evaluating the patient at the bedside with plan for intervention following results of blood work. Patient reports that he is progressively felt increasing shortness of breath but denies any near syncopal episodes. He does report feeling transiently lightheaded when bending down to pick something up but that is the extent of his lightheadedness. He denies any recent fevers, chills, cough, congestion, nausea, vomiting, diarrhea, urinary symptoms. ROS: See above HPI for pertinent positives & negatives. A total of 10 systems reviewed and were otherwise negative. PAST MEDICAL HISTORY:See Below PAST SURGICAL HISTORY:See Below FAMILY HISTORY:See Below SOCIAL HISTORY:See Below HOME MEDICATIONS:See Below ALLERGIES:See Below VITALS:See Below PHYSICAL EXAMINATION: GENERAL: Awake, alert, faftigued-appearing, in no distress HENT: Normocephalic, atraumatic. Oropharynx unremarkable. EYES: Normal conjunctiva. Sclera non-icteric. NECK: Supple. No nuchal rigidity. FROM. No JVD. RESPIRATORY: Clear to auscultation. CARDIAC: Regular rate, normal rhythm. Extremities warm and well perfused. Pulses equal. ABDOMEN: Soft, non-distended. No tenderness to palpation. No rebound or guarding. No masses. RECTAL: Deferred. MUSCULOSKELETAL: Chest examination reveals no tenderness. The back is symmetrical on inspection without obvious abnormality. There is no CVA tenderness to palpation. No joint edema. LOWER EXTREMITIES: Calves are equal size bilaterally and non-tender. No edema. No discoloration. NEURO: Normal sensorium. No sensory or motor deficits noted. SKIN: No rash or jaundice noted. ED COURSE: Critical Care: I have personally spent greater than 35 minutes of critical care time in the direct management of this patient. This includes bedside care, interpretation of diagnostic studies, and testing, discussion with consultants, patient, and family members, and other required patient management activities. This 35 minutes is in excess of all separately billable procedures. Genaro Ferraro MD Past Med/Surg History Medical History Chest pain NSTEMI (non-ST elevated myocardial infarction) Surgical History History of heart artery stent Family History Mother Hypertension Myocardial infarction Brother Hypertension Myocardial infarction Sister Hypertension Father Myocardial infarction Denies family history of Ovarian cancer Prostate cancer Diabetes Breast cancer Colorectal cancer Social History Smoking Status: Never smoker Second Hand Exposure: No; Hx Alcohol Use: No Hx Substance Use: No Preferred Language: German Communication Ability: Effective Drafter Cartographic Required: No Beliefs That Will Affect Care: None marital status: Current Living Situation: Spouse current occupational status: employed 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 Other Information That Helps Us Care for You: No Feels Safe at Home: Yes Safety Concerns: Feels Safe At This Time caffeine: Yes (tea ) Dental Care, Regularly: Yes Physical Activity Frequency: 5-6 Times per Week Seatbelt Use: sometimes Sunscreen Use: No Allergies Allergies Allergy/AdvReac Type Severity Reaction Status Date / Time No Known Allergies Allergy Verified 01/27/20 11:50 Home Meds Home Medications Medication Instructions Recorded Confirmed activated charcoal [CharcoCaps] 0 mg PO DAILY PRN 12/02/19 01/27/20 multivitamin 1 tab PO DAILY 12/02/19 01/27/20 Previous Rx's Medication Instructions Recorded aspirin 81 mg PO DAILY #30 tab 12/08/19 atorvastatin 40 mg tablet 40 mg PO DAILY #90 tab 12/16/19 lisinopril 2.5 mg tablet 2.5 mg PO DAILY #90 tab 12/16/19 metoprolol tartrate 25 mg tablet 12.5 mg PO BID #90 tab 12/16/19 prasugrel 10 mg tablet 10 mg PO DAILY #90 tab 08/28/20 Results & Data (ED) Vital Signs Vital Signs - 24 hr 02/10/20 14:15 02/10/20 14:42 02/10/20 15:00 Temperature 36.7 C 36.7 C Temperature Source Oral Oral Pulse Rate 101 H Pulse Rate [Apical] 103 H Pulse Rate [Left Finger] 78 Pulse Rate from SpO2 Sensor Respiratory Rate 22 20 18 Respiratory Effort / Characteristics Non-Labored Spontaneous Respiratory Depth Normal Blood Pressure 138/108 H Blood Pressure [Left Arm] 132/90 135/98 Blood Pressure Mean 118 Blood Pressure Mean [Left Arm] 104 110 Blood Pressure Position Sitting Blood Pressure Position [Left Arm] Lying Pulse Oximetry 100 98 95 Oxygen Delivery Method Room Air Sepsis Recent Fever Within 48 Hours No Sepsis New/Unexplained Change in Mental Status No Sepsis Action Taken by Nursing No Action Required 02/10/20 18:01 02/10/20 18:05 Temperature Temperature Source Oral Pulse Rate 102 H Pulse Rate [Apical] Pulse Rate [Left Finger] Pulse Rate from SpO2 Sensor 102 H Respiratory Rate 20 Respiratory Effort / Characteristics Respiratory Depth Blood Pressure 131/77 Blood Pressure [Left Arm] Blood Pressure Mean 85 Blood Pressure Mean [Left Arm] Blood Pressure Position Blood Pressure Position [Left Arm] Pulse Oximetry 89 L Oxygen Delivery Method Sepsis Recent Fever Within 48 Hours Sepsis New/Unexplained Change in Mental Status Sepsis Action Taken by Nursing Laboratory Data Attestation: I reviewed the patient's lab results. Result diagrams: 02/10/20 14:24 02/10/20 14:24 Lab Results 02/10/20 02/10/20 02/10/20 Range/Units 14:24 14:24 14:24 WBC 7.25 (4.8-10.8) K/uL RBC 4.30 L (4.7-6.1) M/uL Hgb 11.6 L (14.0-18.0) g/dL Hct 36.9 L (42-52) % MCV 85.8 (80-100) fL MCH 27.0 (25-34) pg MCHC 31.4 L (32-36) g/dL RDW Std Deviation 44.2 (36.4-46.3) fL RDW Coeff of Mary 14.1 (11.5-14.5) % Plt Count 183 (130-400) K/uL MPV 12.3 H (7.4-10.4) fL Immature Gran % (Auto) 0.1 % Neut % (Auto) 76.9 % Lymph % (Auto) 12.8 % Jackson % (Auto) 9.4 % Eos % (Auto) 0.7 % Baso % (Auto) 0.1 % Neut # (Auto) 5.57 (1.4-6.5) K/uL Lymph # (Auto) 0.93 L (1.2-3.4) K/uL Jackson # (Auto) 0.68 H (0.11-0.59) K/uL Eos # (Auto) 0.05 (0-0.5) K/uL Baso # (Auto) 0.01 (0-0.2) K/uL Immature Gran # (Auto) 0.01 (0.00-0.02) K/uL PT 12.1 H (9.0-12.0) Seconds INR 1.2 H (0.9-1.1) APTT 26.9 (21.0-31.0) Seconds PTT Ratio 1.0 Sodium 140 (136-145) mmol/L Potassium 4.0 (3.5-5.1) mmol/L Chloride 106 (98-107) mmol/L Carbon Dioxide 26 (21-32) mmol/L Anion Gap 8.0 (3-11) BUN 12 (7-18) mg/dl Creatinine 1.05 (0.6-1.4) mg/dl Est Cr Clr Drug Dosing 69.2 ml/min Est GFR ( Amer) 90.3 Est GFR (Non-Af Amer) 77.9 BUN/Creatinine Ratio 11.3 (10-20) Glucose 96 (70-99) mg/dl Calcium 8.5 (8.5-10.1) mg/dl Magnesium (1.8-2.4) mg/dl Total Bilirubin 0.8 (0.2-1) mg/dl AST 24 (15-37) U/L ALT 46 (12-78) U/L Alkaline Phosphatase 174 H (45-117) U/L Troponin I < 0.015 (0-0.045) ng/ml Total Protein 6.9 (6.4-8.2) gm/dl Albumin 3.8 (3.4-5.0) gm/dl Globulin 3.1 (2.5-4.0) gm/dl Albumin/Globulin Ratio 1.2 (0.9-2) Lipase 89 (73-393) U/L Fluid Neutrophils % % Fluid Lymphocytes % % Fluid Eosinophils % % Fluid Basophils % % Fluid Meso/Macro/Jackson % % Pericard Color Pericard Appearance Pericard WBC /ul Pericard RBC /uL Blood Type Antibody Screen 02/10/20 02/10/20 02/10/20 Range/Units 14:26 14:43 15:32 WBC (4.8-10.8) K/uL RBC (4.7-6.1) M/uL Hgb (14.0-18.0) g/dL Hct (42-52) % MCV (80-100) fL MCH (25-34) pg MCHC (32-36) g/dL RDW Std Deviation (36.4-46.3) fL RDW Coeff of Mary (11.5-14.5) % Plt Count (130-400) K/uL MPV (7.4-10.4) fL Immature Gran % (Auto) % Neut % (Auto) % Lymph % (Auto) % Jackson % (Auto) % Eos % (Auto) % Baso % (Auto) % Neut # (Auto) (1.4-6.5) K/uL Lymph # (Auto) (1.2-3.4) K/uL Jackson # (Auto) (0.11-0.59) K/uL Eos # (Auto) (0-0.5) K/uL Baso # (Auto) (0-0.2) K/uL Immature Gran # (Auto) (0.00-0.02) K/uL PT (9.0-12.0) Seconds INR (0.9-1.1) APTT (21.0-31.0) Seconds PTT Ratio Sodium (136-145) mmol/L Potassium (3.5-5.1) mmol/L Chloride (98-107) mmol/L Carbon Dioxide (21-32) mmol/L Anion Gap (3-11) BUN (7-18) mg/dl Creatinine (0.6-1.4) mg/dl Est Cr Clr Drug Dosing ml/min Est GFR ( Amer) Est GFR (Non-Af Amer) BUN/Creatinine Ratio (10-20) Glucose (70-99) mg/dl Calcium (8.5-10.1) mg/dl Magnesium 2.3 (1.8-2.4) mg/dl Total Bilirubin (0.2-1) mg/dl AST (15-37) U/L ALT (12-78) U/L Alkaline Phosphatase (45-117) U/L Troponin I (0-0.045) ng/ml Total Protein (6.4-8.2) gm/dl Albumin (3.4-5.0) gm/dl Globulin (2.5-4.0) gm/dl Albumin/Globulin Ratio (0.9-2) Lipase (73-393) U/L Fluid Neutrophils % 25 % Fluid Lymphocytes % 30 % Fluid Eosinophils % 1 % Fluid Basophils % 0 % Fluid Meso/Macro/Jackson % 44 % Pericard Color RED Pericard Appearance TURBID Pericard WBC 3442 /ul Pericard RBC 3131308 /uL Blood Type A Positive Antibody Screen NEGATIVE Administered Medications Discontinued Medications Fentanyl Citrate (Fentanyl Citrate 100 Mcg/2 Ml Vial) Confirm Administered Dose 100 mcg .ROUTE .STK-MED ONE Stop: 02/10/20 14:56 Last Admin: 02/10/20 18:40 Dose: Not Given Documented by: [id number] Heparin Sodium (Porcine) (Heparin (Porcine) 1000 Unit/Ml 10 Ml (Pit Furnace Operator Use Only)) Confirm Administered Dose 10,000 units .ROUTE .STK-MED ONE Stop: 02/10/20 14:56 Last Admin: 02/10/20 18:40 Dose: Not Given Documented by: [id number] Heparin Sodium/Sodium Chloride (Heparin In Nss Infusion 1000 Unit/500 Ml (2 U/Ml ) Bag) Confirm Administered Dose 3,000 units IV .STK-MED ONE Stop: 02/10/20 14:56 Last Admin: 02/10/20 18:40 Dose: Not Given Documented by: [id number] Midazolam HCl (Midazolam Hcl 1 Mg/Ml 2ml Vial) Confirm Administered Dose 2 mg .ROUTE .STK-MED ONE Stop: 02/10/20 14:56 Last Admin: 02/10/20 18:41 Dose: Not Given Documented by: [id number] Midazolam HCl (Midazolam Hcl 1 Mg/Ml 2ml Vial) Confirm Administered Dose 2 mg .ROUTE .STK-MED ONE Stop: 02/10/20 16:20 Last Admin: 02/10/20 18:41 Dose: Not Given Documented by: [id number] Nicardipine HCl (Nicardipine Hcl Inj 2.5 Mg/Ml 10 Ml Amp) Confirm Administered Dose 25 mg .ROUTE .STK-MED ONE Stop: 02/10/20 14:56 Last Admin: 02/10/20 18:40 Dose: Not Given Documented by: [id number] Nitroglycerin/Dextrose (Nitroglycerin/D5w 100mcg/Ml 20ml Syr) Confirm Administered Dose 2,000 mcg .ROUTE .STK-MED ONE Stop: 02/10/20 14:56 Last Admin: 02/10/20 18:41 Dose: Not Given Documented by: [id number] Blood Pressure Blood Pressure Findings: Elevated blood pressure Blood Pressure Disposition: further management by hospitalist Discharge Plan Visit Data Chief Complaint: Cardiac Assessment Stated Complaint: IRREGULAR HEARTBEAT ED Provider: Genaro Ferraro ED Midlevel Provider: Theresa Austin Discharge Problem: Pericardial effusion with cardiac tamponade, Dyspnea, Anemia
[2020-02-10] MEDS ORDERED: HEPARIN (PORCINE) 1000 UNIT/ML 10 ML (CATH LAB USE ONLY) ONE (14:55)
[2020-02-10] MEDS ORDERED: MIDAZOLAM HCL 1 MG/ML 2ML VIAL ONE ×2 (14:55→16:19)
[2020-02-10] MEDS ORDERED: NiCARDipine HCL INJ 2.5 MG/ML 10 ML AMP ONE (14:55)
[2020-02-10] MEDS ORDERED: fentaNYL citrate 100 MCG/2 ML VIAL ONE (14:55)
[2020-02-10] MEDS ORDERED: NITROGLYCERIN/D5W 100MCG/ML 20ML SYR ONE (14:55)
[2020-02-10 15:01] LABS: Alanine Aminotransferase 46 U/L (12-78); Albumin Level 3.8 gm/dl (3.4-5.0); Aspartate Aminotransferase 24 U/L (15-37); BUN Creatinine Ratio 11.3 (10-20); Blood Urea Nitrogen 12 mg/dl (7-18); Calcium 8.5 mg/dl (8.5-10.1); Carbon Dioxide 26 mmol/L (21-32); Chloride 106 mmol/L (98-107); Creatinine Clr Calc Pharmacy 69.2 ml/min; Est GFR (African American) 90.3; Est GFR (Non-African American) 77.9; Glucose 96 mg/dl (70-99); Lipase 89 U/L (73-393); Sodium 140 mmol/L (136-145)
[2020-02-10 15:06] LABS: Albumin Globulin Ratio 1.2 (0.9-2); Alkaline Phosphatase 174 U/L (45-117); Bilirubin,Total 0.8 mg/dl (0.2-1); Globulin 3.1 gm/dl (2.5-4.0); Total Protein 6.9 gm/dl (6.4-8.2); Troponin I < 0.015 ng/ml (0-0.045)
--- NOTE | 2020-02-10 15:12 | Emergency Department Note ---
ED Visit Note Today I saw this patient for pericardial effusion/ cardiac tamponade with Dr. Ferraro and participated in the care of this patient. Please see Dr. Ferraro's documentation for assessment and plan. . Resident Activity Tracking Resident Involvement: Resident Care Provided Care Provided: Adult ED
--- NOTE | 2020-02-10 17:54 | Electrocardiogram Report ---
Test Reason : Blood Pressure : / mmHG Vent. Rate : 103 BPM Atrial Rate : 103 BPM P-R Int : 120 ms QRS Dur : 126 ms QT Int : 342 ms P-R-T Axes : 049 058 006 degrees QTc Int : 448 ms Sinus tachycardia Right bundle branch block Abnormal ECG When compared with ECG of 05-DEC-2019 19:21, Nonspecific T wave abnormality has replaced inverted T waves in Inferior leads T wave inversion now evident in Anterior leads Confirmed by Reynaldo Lovelace ([id number]) on 02/10/2020 5:53:46 PM Referred By: Confirmed By:Samson Lovelace
[2020-02-10] MEDS ORDERED: ONDANSETRON INJ 2 MG/ML 2 ML VIAL IV PRN (18:04)
[2020-02-10] MEDS ORDERED: ICU PROTOCOL FOR HYPERGLYCEMIA PRN (18:04)
[2020-02-10] MEDS ORDERED: SODIUM CHLORIDE 0.9% 1000ML 1,000 ML IV SCH (18:15)
[2020-02-10 18:17] LABS: Basophils, Fluid 0 %; Eosinophils, Fluid 1 %; Lymphocytes, Fluid 30 %; Mono,Macrophage,Mesothelial 44 %; Neutrophils, Fluid 25 %; Pericardial Fluid Appearance TURBID; Pericardial Fluid Color RED; RBC Pericardial Fluid (A) 2856000 /uL; WBC Pericardial Fluid (A) 3442 /ul
--- NOTE | 2020-02-10 18:53 | XRay Report ---
XR chest 1V portable CLINICAL HISTORY: Chest Pain COMPARISON STUDY: Chest radiograph December 05, 2019. FINDINGS: Lung volumes are diminished. Trace right pleural effusion is noted. Bibasilar opacities are present. There is pulmonary vascular congestion with suspected mild pulmonary edema, accentuated on this hypoventilatory study. Enlargement of the cardiac silhouette is also accentuated on this hypoven tilatory study. There is no pneumothorax. IMPRESSION: 1. Low lung volumes likely reflects a hypoventilatory study. Mild pulmonary edema. 2. Basilar opacities could reflect atelectasis or consolidation. Radiographic follow-up is recommende d. 3. Trace right pleural effusion. ACT 112: Negative or not required by law. Electronically signed by: Walter Bryant M.D. 02/10/2020 6:52 PM
--- NOTE | 2020-02-10 19:47 | Critical Care Consultation ---
Date of Consultation February 10, 2020 Assessment & Plan (1) Pericardial effusion with cardiac tamponade: Impression: 60-year-old male with recent cardiac cath with stents x4 which was complicated by perforation with development of pericardial effusion with tamponade back in November. Now presents to the ICU after reaccumulation of pericardial effusion with tamponade and insertion of pericardial drain. Neuro - [facility] ICU: Negative Cardiac - Pericardial effusion with tamponadestatus post pericardiocentesis with pericardial drain, managed per cardiology -Pericardial fluid labs pending -Patient taken to [facility], will follow up finding -We will follow-up with cardiology and discussion with need for transfer for potential pericardial window -Continue monitoring in ICU for now CAD/HLDcontinue ASA, Lipitor, Plavix regimen -Troponin negative -Monitor on telemetry Respiratory - Currently maintaining sats on 2 L nasal No history of pulmonary disease Patient experienced mild dyspnea -Chest x-ray consistent with low lung volumes and atelectasis with trace right pleural effusion and mild pulmonary edema -We will encourage incentive spirometer and would expect to improve with spirometer and ambulation now that effusion drained GI - Full liquid diet for now RENAL/LYTES - Creatinine within normal limits Monitor routine BMPs and replete electrolytes as indicated - Strict I's and O's ENDO - No history of diabetes or thyroid disease, ICU hyperglycemic protocol HEME - H&H stable, monitor routine CBCs ID - No indication for infectious process at this time LINES/IV ACCESS - Peripheral IVs DVT PROPHYLAXIS - SCDs Thank you for allowing us to participate in the care of this patient. Please refer to my attending physician's documentation for any further recommendations. (2) KEYS (dyspnea on exertion): (3) CAD (coronary artery disease): (4) Hypercholesterolemia: History of Present Illness Attending Physician: Reynaldo Jefferson MD History of Present Illness Patient is a 52-year-old male with PMH of CAD and NSTEMI who underwent cardiac cath with PCI x4 in November which was complicated by pericardial effusion and underwent pericardiocentesis w/ pericardial drain. He presented to the the ED earlier today from the clinic after outpatient echo revealed circumferential pericardial effusion with evidence of cardiac tamponade. Patient had been experiencing SOB w/ activity for the past few weeks and had recently developed BLE swelling and abdominal distension. Pericardial drain was placed by cardiology and 1400 mL removed. Patient presents to ICU after returning from cardiac cath. He is currently hemodynamically stable and appears comfortable on exam. He currently denies headache dizziness or syncope, chest pain or pa lpitations, abdominal pain or nausea or vomiting. He denies recent illness or fevers. He does report mild shortness of breath and describes it is hard to take a deep breath which is been ongoing for the past few weeks. Patient currently stabilized with pericardial drain but may require transfer for pericardial window in the near future. Will continue to monitor in ICU for now. Allergies Allergy/AdvReac Type Severity Reaction Status Date / Time No Known Allergies Allergy Verified 01/27/20 11:50 Home Medications Home Medications Medication Instructions Recorded Confirmed Type activated charcoal [CharcoCaps] 0 mg PO DAILY PRN 12/02/19 01/27/20 History multivitamin 1 tab PO DAILY 12/02/19 01/27/20 History aspirin 81 mg PO DAILY #30 tab 12/08/19 01/27/20 Rx atorvastatin 40 mg tablet 40 mg PO DAILY #90 tab 12/16/19 01/27/20 Rx lisinopril 2.5 mg tablet 2.5 mg PO DAILY #90 tab 12/16/19 01/27/20 Rx metoprolol tartrate 25 mg tablet 12.5 mg PO BID #90 tab 12/16/19 01/27/20 Rx prasugrel 10 mg tablet 10 mg PO DAILY #90 tab 01/27/20 01/27/20 Rx Patient History Medical History Chest pain NSTEMI (non-ST elevated myocardial infarction) Surgical History History of heart artery stent Family History Mother Hypertension Myocardial infarction Brother Hypertension Myocardial infarction Sister Hypertension Father Myocardial infarction Denies family history of Ovarian cancer Prostate cancer Diabetes Breast cancer Colorectal cancer Social History Smoking Status: Never smoker Second Hand Exposure: No; Hx Alcohol Use: No Hx Substance Use: No Preferred Language: Kyrgyz Communication Ability: Effective Granulator Required: No Beliefs That Will Affect Care: None marital status: Current Living Situation: Spouse current occupational status: employed 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 Other Information That Helps Us Care for You: No Feels Safe at Home: Yes Safety Concerns: Feels Safe At This Time caffeine: Yes (tea ) Dental Care, Regularly: Yes Physical Activity Frequency: 5-6 Times per Week Seatbelt Use: sometimes Sunscreen Use: No Review of Systems Review of Systems: All systems reviewed & are unremarkable except as noted in HPI & below Physical Exam Constitutional: cooperative and comfortable Eyes: PERRL, conjunctivae normal, anicteric sclerae ENMT: external ear and nose normal, oropharynx normal Neck: trachea midline, no thyromegaly Respiratory: normal respiratory effort, lungs clear to auscultation Cardiovascular: RRR, no murmur, no edema Heart Sounds: normal S1 and normal S2; no murmur Vessels: no JVD Extremities: normal capillary refill Bilateral +1 lower extremity edema Gastrointestinal (Abdomen): Abdomen mildly distended but soft and nontender, normal active bowel sounds Musculoskeletal: no cyanosis or clubbing, extremities motor strength 5/5 Skin: no rashes, warm and dry Neurologic: PERRL, EOMI, accommodation nl, no face palsy, no dysarthria Psychiatric: A+Ox3, euthymic affect Results & Data Results & Data ([facility]) Vital Signs (Past 12 Hours) Vital Signs Temp Pulse Pulse Pulse Resp BP BP 02/10/20 18:31 104 H 29 H 138/86 02/10/20 18:30 103 H 26 H 02/10/20 18:20 101 H 27 H 02/10/20 18:16 100 H 28 H 125/83 02/10/20 18:15 99 H 23 02/10/20 18:08 36.7 C 101 H 26 H 131/77 02/10/20 18:01 102 H 20 131/77 02/10/20 15:00 36.7 C 103 H 18 135/98 02/10/20 14:42 78 20 132/90 02/10/20 14:15 36.7 C 101 H 22 138/108 H Pulse Ox 02/10/20 18:31 97 02/10/20 18:30 97 02/10/20 18:20 96 02/10/20 18:16 92 02/10/20 18:15 92 02/10/20 18:08 97 02/10/20 18:01 89 L 02/10/20 15:00 95 02/10/20 14:42 98 02/10/20 14:15 100 Coding Level of Care Code 17396 Inpt Consult Level 5 Diagnoses Pericardial effusion with cardiac tamponade I31.3; I31.4 KEYS (dyspnea on exertion) R06.00 CAD (coronary artery disease) I25.10 Hypercholesterolemia E78.00
--- NOTE | 2020-02-10 21:39 | Pre Anesthesia Assessment ---
Date of Service February 10, 2020 Pre Sedation Assessment Vital Signs Temp Pulse Pulse Pulse Resp BP BP 02/10/20 20:10 112 H 26 H 02/10/20 20:01 112 H 20 149/83 H 02/10/20 20:00 110 H 14 02/10/20 19:50 113 H 24 02/10/20 19:40 104 H 24 02/10/20 19:32 108 H 25 H 119/93 02/10/20 19:30 110 H 16 02/10/20 19:16 97 H 24 151/87 H 02/10/20 19:10 96 H 20 02/10/20 19:01 99 H 17 135/85 02/10/20 19:00 104 H 19 02/10/20 18:50 99 H 19 02/10/20 18:46 103 H 20 132/82 02/10/20 18:40 106 H 20 02/10/20 18:31 104 H 29 H 138/86 02/10/20 18:30 103 H 26 H 02/10/20 18:20 101 H 27 H 02/10/20 18:16 100 H 28 H 125/83 02/10/20 18:15 99 H 23 02/10/20 18:08 98.1 F 101 H 26 H 131/77 02/10/20 18:01 102 H 20 131/77 02/10/20 15:00 98.1 F 103 H 18 135/98 02/10/20 14:42 78 20 132/90 02/10/20 14:15 98.1 F 101 H 22 138/108 H Pulse Ox 02/10/20 20:10 97 02/10/20 20:01 97 02/10/20 20:00 97 02/10/20 19:50 95 02/10/20 19:40 96 02/10/20 19:32 97 02/10/20 19:30 97 02/10/20 19:16 99 02/10/20 19:10 97 02/10/20 19:01 97 02/10/20 19:00 100 02/10/20 18:50 99 02/10/20 18:46 99 02/10/20 18:40 94 02/10/20 18:31 97 02/10/20 18:30 97 02/10/20 18:20 96 09/11/20 18:16 92 02/10/20 18:15 92 02/10/20 18:08 97 02/10/20 18:01 89 L 02/10/20 15:00 95 02/10/20 14:42 98 02/10/20 14:15 100 Cardiovascular + tachycardic Respiratory normal respiratory effort, lungs clear to auscultation Pre-Sedation Airway Assessment Smoking Status: Never smoker Hx Sleep Apnea: No Hx Difficult Intubation: No Short, Thick Neck: No Thyromental Distance: > or= 3.5 Finger Breadths Oral Cavity: + WNL Mallampati Class: III ASA: ASA3 NPO Status Date of Last Intake of Fluids: 02/10/20 Time of Last Intake of Fluids: 10:00 Date of Last Intake of Solid Food: 02/10/20 Time of Last Intake of Solid Foods: 10:00 Procedure Planning Contraindications for Sedation: none Current Medications Reviewed: Yes Notes The planned sedation has been discussed with the patient. Informed Consent was obtained. I have identified the patient, determined the appropriateness of sedation and have assessed the patient immediately prior to the procedure. All medicine(s) and interventions are by my order.
--- NOTE | 2020-02-10 21:46 | Post Anesthesia Assessment ---
Date of Service February 10, 2020 Post Sedation Assessment Vital Signs Temp Pulse Pulse Pulse Resp BP BP 02/10/20 20:10 112 H 26 H 02/10/20 20:01 112 H 20 149/83 H 02/10/20 20:00 110 H 14 02/10/20 19:50 113 H 24 02/10/20 19:40 104 H 24 02/10/20 19:32 108 H 25 H 119/93 02/10/20 19:30 110 H 16 02/10/20 19:16 97 H 24 151/87 H 02/10/20 19:10 96 H 20 02/10/20 19:01 99 H 17 135/85 02/10/20 19:00 104 H 19 02/10/20 18:50 99 H 19 02/10/20 18:46 103 H 20 132/82 02/10/20 18:40 106 H 20 02/10/20 18:31 104 H 29 H 138/86 02/10/20 18:30 103 H 26 H 02/10/20 18:20 101 H 27 H 02/10/20 18:16 100 H 28 H 125/83 02/10/20 18:15 99 H 23 02/10/20 18:08 98.1 F 101 H 26 H 131/77 02/10/20 18:01 102 H 20 131/77 02/10/20 15:00 98.1 F 103 H 18 135/98 02/10/20 14:42 78 20 132/90 02/10/20 14:15 98.1 F 101 H 22 138/108 H Pulse Ox 02/10/20 20:10 97 02/10/20 20:01 97 02/10/20 20:00 97 02/10/20 19:50 95 02/10/20 19:40 96 02/10/20 19:32 97 02/10/20 19:30 97 02/10/20 19:16 99 02/10/20 19:10 97 02/10/20 19:01 97 02/10/20 19:00 100 02/10/20 18:50 99 02/10/20 18:46 99 02/10/20 18:40 94 02/10/20 18:31 97 02/10/20 18:30 97 02/10/20 18:20 96 09/11/20 18:16 92 02/10/20 18:15 92 02/10/20 18:08 97 02/10/20 18:01 89 L 02/10/20 15:00 95 02/10/20 14:42 98 02/10/20 14:15 100 Recovery Score Activity: Moves 4 extremities Respiration: Deep Breath/Cough Circulation: +/-20% PreAnes Value Consciousness: Fully Awake Oxygen Saturation: O2 needed for >90% Discharge Sedation Level of Care: Fast Track Phase II Post Sedation Plan On clinical assessment, the patient appears to have tolerated the sedation without complications. Patient is recovering as anticipated. Patient will continue to be monitored by nursing and may be discharged when sedation discharge criteria are met per below protocol. Upon Completions of procedure up to 15 minutes continue every 5 minute vital signs and the P.A.R. score; then discharge to a Phase I or Fast Track to Phase II per the following guidelines: * Discharge Patient to appropriate Phase II area if PAR is 8 or greater or return to pre- procedure baseline. The post - procedure orders will be as directed. * If PAR score is less than 8 or not return to pre-procedure baseline then patient will follow Phase I monitoring till PAR is reached for Phase II. The Phase I may be done in procedure room or may call to secure a Phase I area. * If naloxone or flumazenil are used for reversal, hold in Phase I for continued monitoring from when last reversal dose was given for a minimum of 60 minutes or longer pending the nurse and/or physician discretion of patient condition before discharge to Phase II. Please call the Sedation Physician to re-evaluate and complete post-note for discharge to Phase II area. Do NOT discharge from procedure sedation or Phase 1 until post- sedation evaluation note is complete by procedure /sedation MD Sedation Discharge Instructions to be given to the patient at discharge to home.
--- NOTE | 2020-02-10 21:54 | Cardiac Catheterization ---
[facility] Data: [employer]ware [employer] Cardiac Status Clinical evaluation leading to the procedure CAD Presenation: Sx unlikely to be ischemic Anginal Classification: No Symptoms Heart Failure: NYHA Class: CCS III Cardiogenic Shock within 24 Hours: No Cardiac Arrest within 24 Hours: No Imaging Studies Past 6 Months: Yes Stress Studies Past 6 Months: No Diagnostic Physicians Name: Reynaldo Jefferson MD Closure Device Percutaneous Entry Location: ulnar Closure Device: Radial Band Recommendations: Management Recommendatons (Pericardial drain in place) Intraprocedure Events Significant Disection: No Perforation: No Cardiac Cath Procedure Full Procedure Date February 10, 2020 Pre-Procedure Diagnosis Pre-Procedure Diagnosis: Cardiothoracic Symptom (Dyspnea on exertion, large pericardial effusion with early signs of tamponade) AUC Score AUC Score: 9 Post-Procedure Diagnosis Post-Procedure Diagnosis: Severe CAD, Elevated Intracardiac Pressures and Cardiothoracic Finding (Large bloody pericardial effusion) Procedure(s) Performed Procedure(s) Performed: Coronary Angiography, Left Heart Cath, Ultrasound Guided Vascular Access and Pericardiocentesis [employer]man Helper Reynaldo Jefferson MD Ditch Cleaner(s) Fili Estimated Blood Loss Estimated Blood Loss: 10 ml, 1450 bloody fluid from pericardial space Medication(s) Medication(s): Fentanyl, Lidocaine 1% and Versed Summary of Findings Indication: Post PCI of RCA for small nstemi and staged PCI of mid LAD/Diagonal. Procedure complicated by a distal wire perforation involving diagonal and cardiac tamponade requiring pericardiocentesis 2 months ago. Presented to office today with gradual increase in dyspnea and found to have a very large pericardial effusion with signs of early tamponade. Procedure: Echo confirmed large circumferential pericardial effusion Pericardial space accessed via apical approach under ultrasound guidance. Pericardial space confirmed with injection of saline contrast 8FR pericardial drain placed under fluoroscopic guidance space Removal of a total of 1485 cc of bloody pericardial fluid Complete removal of pericardial fluid confirmed via echo. Cardiac cathaterization: Right ulnar artery access under ultrasound guidance - LAD, RCA cannulated with [place] catheter Repeat coronary angiography revealed patent LAD, diagonal and RCA stents. No significant contrast extravasation noted. Unchanged severe disease in small circumflex/OM1 (OM 70-80% proximal stenosis. 60% stenosis in small circumflex just after takeoff of OM1) Pericardial drain left in place will allow vessel to self tamponade. Access closure: TR Band Summary: 1. Large bloody pericardial effusion 2. Patent LAD, diagonal and RCA stents 3. No obvious perforation or contrast extravasation noted 4. Successful pericardiocentesis with removal of 1485 ml of bloody fluid and placement of pericardial drain Recommendations: Admit to ICU for further monitoring Pericardial drain to suction Repeat H/H in AM Transition prasugrel to clopidogrel -Repeat echo in AM -Further discussions with tertiary center regarding long-term options (continued close surveillance vs diagonal embolization vs pericardial window). Hemodynamics Rest Ao:: 127/75/110 Final Ao: 125/73/98 LV: 121/19 Recommendations Recommendations: Management Recommendatons (Pericardial drain in place) Specimens Specimens: None Radiation Exposure (mGy) -- Contrast (mls) 75 Drains Drains: pericardial drain Anesthesia moderate Procedural Complication(s) None Disposition ICU I attest to the content of the Intraoperative Record and any orders documented therein. Any exceptions are noted below. [facility] Card Cath Procedure Codes Cardiac Catheterization Procedure 1: Cardiovascular Cath Procedures: 63184 Coronaries and LHC (+/-LV) Therapeutic Services & Ancillary Proc Procedure 1: Cardiovascular Tx and Anc Procedures: 72557 Ultrasonic Guidance Vascular Access Procedure 2: Cardiovascular Tx and Anc Procedures: 04450 Ultrasonic Guidance Pericardiocentesis Procedure 3: Cardiovascular Tx and Anc Procedures: 73431 Pericardiocentesis; initial Moderate Sedation Procedure 1: Sedation/Anesthesia: 81963 Mod Sedation by the same physician;Init15 Min Child Age 5 & Up Procedure 2: Sedation/Anesthesia: 21866 Mod Sedation by the same physician; Ea [id number] Minutes PG Care Time/CCT Total # of Minutes Spent Total Time Spent with Patient: Total time spent is greater than 50% in coordination of care (as documented) at patient's floor/unit and/or counseling patient:
--- NOTE | 2020-02-10 22:46 | History & Physical Report ---
Date of Service February 10, 2020 Assessment & Plan (1) Pericardial effusion: 2. 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 Prior diagonal perforation 4. Anemia Reviewed repeat echocardiogram. Noted to have a very large pericardial effusion without debris. Early signs of tamponade (RA and partial RV early diastolic collapse, MV inflow respiratory variation and dilated IVC). Concern for slow bleeding versus inflammatory/reactive process. At present patient in no acute distress and hemodynamically stable but tachycardic to 100-110s. Plan to proceed with pericardiocentesis and possible cardiac catheterization. Further recommendations pending findings. Admission and Anticipated Discharge Date Admission Date: February 10, 2020 History of Present Illness Primary Care Provider: Bryon Phillips DO Mr. King is a 60-year-old male with a history of Multivessel CAD s/p Multivessel Stenting (in a staged procedure 12/03/2019 and 12/05/2019) - complicated by D1 Perforation resulting in Cardiac Tamponade requiring Emergent Pericardiocentesis, Anemia, and Hypercholesterolemia -- who presented to outpatient cardiology office today acutely complaining of ongoing KEYS which has significantly worsened over the past week. Dyspnea associated with weight gain and LE edema. Underwent repeat echo which showed a very large pericardial effusion with early tamponade physiology. Prior Cardiac History: Patient presented to [facility] late in the evening of 12/02/2019 with progressive angina pectoris x 2 weeks and was noted to have dynamic EKG changes and an elevated Troponin I Level (peak 0.6). An urgent Cardiac Catheterization was performed was performed on 12/03/2019 which noted 2 culprit lesions involving the Distal RCA and Right PAVB. He underwent deployment of a LIMA placed in the Distal RCA (3.5x18 [place]a), and a LIMA deployed in the Right PAV (2.5x12 Larry). Patient was also noted to have a high-grade LAD and D1 stenoses -- so he was kept in the hospital for a staged procedure on 12/05/2019 (mid LAD 2.5 x 15 [place]a, Diagonal 2.25 x 18 Ancona). Unfortunately, that procedure was complicated by a diagonal branch perforation which resulted in cardiac tamponade and an emergent pericardiocentesis. This was complicated by Anemia with a Hgb of 9.4 gm/dl. The patient made a slow recovery following that event. Patient was discharged from the hospital on 12/08/2019. Allergies Allergy/AdvReac Type Severity Reaction Status Date / Time No Known Allergies Allergy Verified 01/27/20 11:50 Home Medications Home Medications Medication Instructions Recorded Confirmed Type activated charcoal [CharcoCaps] 0 mg PO DAILY PRN 12/02/19 01/27/20 History multivitamin 1 tab PO DAILY 12/02/19 01/27/20 History aspirin 81 mg PO DAILY #30 tab 12/08/19 01/27/20 Rx atorvastatin 40 mg tablet 40 mg PO DAILY #90 tab 12/16/19 01/27/20 Rx lisinopril 2.5 mg tablet 2.5 mg PO DAILY #90 tab 12/16/19 01/27/20 Rx metoprolol tartrate 25 mg tablet 12.5 mg PO BID #90 tab 12/16/19 01/27/20 Rx prasugrel 10 mg tablet 10 mg PO DAILY #90 tab 01/27/20 01/27/20 Rx Past Med/Surg History Medical History (Updated 02/10/20 @ 22:40 by Luis Jefferson MD) Chest pain NSTEMI (non-ST elevated myocardial infarction) Surgical History History of heart artery stent Family History Mother Hypertension Myocardial infarction Brother Hypertension Myocardial infarction Sister Hypertension Father Myocardial infarction Denies family history of Ovarian cancer Prostate cancer Diabetes Breast cancer Colorectal cancer Social History Smoking Status: Never smoker Second Hand Exposure: No; Hx Alcohol Use: No Hx Substance Use: No Preferred Language: Amharic Communication Ability: Effective Accredited Pharmacy Technician Required: No Beliefs That Will Affect Care: None marital status: Current Living Situation: Spouse current occupational status: employed 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 HEENT: Head is atraumatic, normocephalic. EOM's intact. NECK: JVD is present. Carotid upstrokes are + 2 bilaterally. No bruits are noted. CHEST/LUNGS: Diminished breath sounds in bilateral bases. No wheezes, rales, or crackles. CVS: S1 and S2 are regular, tachycardic, and distant. No obvious murmurs, gallops, or rubs. PMI is nonpalpable. No lifts, heaves, or thrills. No abdominal aortic or renal bruits. ABDOMINAL EXAM: Bowel sounds are present, abdomen is distended. No masses, organomegaly, or tenderness. EXTREMITIES: No clubbing or cyanosis. Trace edema to the distal thigh, +1 pretibial edema bilaterally. Intact posterior tibial and radial pulses bilaterally. NEUROLOGIC EXAM: Patient is awake, alert, and oriented. Pleasant and cooperative. Answers questions appropriately. Speech is clear. Results & Data Results & Data ([facility]) Vital Signs (Past 12 Hours) Vital Signs Temp Pulse Pulse Pulse Resp BP BP 02/10/20 22:15 111 H 13 02/10/20 22:01 110 H 27 H 148/94 H 02/10/20 22:00 112 H 26 H 02/10/20 21:45 110 H 27 H 02/10/20 21:32 107 H 23 151/90 H 02/10/20 21:30 111 H 25 H 02/10/20 21:15 107 H 23 02/10/20 21:01 110 H 30 H 157/93 H 02/10/20 21:00 103 H 25 H 02/10/20 20:45 109 H 22 02/10/20 20:31 108 H 18 146/90 H 02/10/20 20:30 108 H 25 H 02/10/20 20:15 117 H 21 02/10/20 20:10 112 H 26 H 02/10/20 20:01 112 H 20 149/83 H 02/10/20 20:00 110 H 14 02/10/20 19:50 113 H 24 02/10/20 19:40 104 H 24 02/10/20 19:32 108 H 25 H 119/93 02/10/20 19:30 110 H 16 02/10/20 19:16 97 H 24 151/87 H 09/11/20 19:10 96 H 20 02/10/20 19:01 99 H 17 135/85 02/10/20 19:00 104 H 19 02/10/20 18:50 99 H 19 02/10/20 18:46 103 H 20 132/82 02/10/20 18:40 106 H 20 02/10/20 18:31 104 H 29 H 138/86 02/10/20 18:30 103 H 26 H 02/10/20 18:20 101 H 27 H 02/10/20 18:16 100 H 28 H 125/83 02/10/20 18:15 99 H 23 02/10/20 18:08 98.1 F 101 H 26 H 131/77 02/10/20 18:01 102 H 20 131/77 02/10/20 15:00 98.1 F 103 H 18 135/98 02/10/20 14:42 78 20 132/90 02/10/20 14:15 98.1 F 101 H 22 138/108 H Pulse Ox 02/10/20 22:15 97 02/10/20 22:01 97 02/10/20 22:00 96 02/10/20 21:45 96 02/10/20 21:32 96 02/10/20 21:30 96 02/10/20 21:15 94 02/10/20 21:01 98 02/10/20 21:00 97 02/10/20 20:45 92 02/10/20 20:31 97 02/10/20 20:30 96 02/10/20 20:15 94 02/10/20 20:10 97 02/10/20 20:01 97 02/10/20 20:00 97 02/10/20 19:50 95 02/10/20 19:40 96 02/10/20 19:32 97 02/10/20 19:30 97 02/10/20 19:16 99 02/10/20 19:10 97 02/10/20 19:01 97 02/10/20 19:00 100 02/10/20 18:50 99 02/10/20 18:46 99 02/10/20 18:40 94 02/10/20 18:31 97 02/10/20 18:30 97 02/10/20 18:20 96 02/10/20 18:16 92 02/10/20 18:15 92 02/10/20 18:08 97 02/10/20 18:01 89 L 02/10/20 15:00 95 02/10/20 14:42 98 02/10/20 14:15 100 Code Status & VTE Plan VTE Prophylaxis Plan VTE Prophylaxis will be ordered: No PG Care Time/CCT Total # of Minutes Spent Total Time Spent with Patient: Total time spent is greater than 50% in coordination of care (as documented) at patient's floor/unit and/or counseling patient: Coding Level of Care Code 91916 Initial Inpt Care Lvl 3 Diagnoses Pericardial effusion I31.3
[2020-02-11 05:02] LABS: Basophils # (auto) 0.01 K/uL (0-0.2); Basophils % (auto) 0.1 %; Eosinophils # (auto) 0.01 K/uL (0-0.5); Eosinophils % (auto) 0.1 %; Hematocrit (blood only) 35.7 % (42-52); Hemoglobin 11.6 g/dL (14.0-18.0); Immature Granulocytes # (auto) 0.01 K/uL (0.00-0.02); Immature Granulocytes % (auto) 0.1 %; Lymphocytes # (auto) 1.08 K/uL (1.2-3.4); Lymphocytes % (auto) 11.6 %; Mean Corpuscular Hemoglobin 27.4 pg (25-34); Mean Corpuscular Hgb Conc 32.5 g/dL (32-36); Mean Corpuscular Volume 84.4 fL (80-100); Mean Platelet Volume 12.3 fL (7.4-10.4); Monocytes % (auto) 4.3 %; Neutrophils # (auto) 7.79 K/uL (1.4-6.5); Neutrophils % (auto) 83.8 %; Platelet Count 169 K/uL (130-400); RDW Coefficient of Variation 13.7 % (11.5-14.5); RDW Standard Deviation 42.4 fL (36.4-46.3); Red Blood Count 4.23 M/uL (4.7-6.1)
[2020-02-11 05:24] LABS: BUN Creatinine Ratio 10.2 (10-20); Calcium 8.1 mg/dl (8.5-10.1); Creatinine Clr Calc Pharmacy 75.7 ml/min; Est GFR (African American) 100.6; Est GFR (Non-African American) 86.8; Magnesium 1.9 mg/dl (1.8-2.4); Phosphorus 4.4 mg/dl (2.5-4.9); Potassium 3.7 mmol/L (3.5-5.1)
[2020-02-11] MEDS ORDERED: MAGNESIUM SULFATE / D5W 1 GM/100 ML BAG IV ONE (06:06)
[2020-02-11] MEDS ORDERED: POTASSIUM CHLORIDE 20 MEQ TABCR PO STA (06:06)
[2020-02-11] MEDS: ATORVASTATIN 40 MG TAB PO SCH (07:49)
[2020-02-11] MEDS: ASPIRIN 81 MG ECTAB PO SCH (07:49)
[2020-02-11] MEDS: CLOPIDOGREL BISULFATE 75 MG TAB PO SCH (07:49)
--- NOTE | 2020-02-11 10:45 | Critical Care Progress Note ---
Date of Service February 11, 2020 Assessment & Plan (1) Pericardial effusion: (2) KEYS (dyspnea on exertion): Admission and Anticipated Discharge Date Admission Date: February 10, 2020 --Pericardial tamponade S/p pericardial drain 02/10/2020 Cardiac cath did not show any signs of bleeding and the stents were patent from November 2019. 1.4 L of bloody effusion was drained This is a second episode that the patient had off pericardial effusion with tamponade physiology. The first time he had it was because of complication from cardiac cath which was back in November 2019 As this is a second episode I think the patient will ultimately need a pericardial window. Continue with the drain right now. Follow-up cardiology recommendation --New onset fever Patient chest x-ray did not show any clear infiltrate This could be postprocedural Continue with Tylenol for the time being. If he spikes again will do septic work-up and start antibiotics --Shortness of breath Secondary to above segment significantly improved Continue with diuresis as tolerated Keep negative balance --History of coronary artery disease Continue with Plavix, statin, aspirin --Prophylaxis VTE: IPC's GI: None Lines: Peripheral Diet: Cardiac Plan: Given the patient had intervention back in November leading to first pericardial tamponade and this is a second episode which again showed bloody pericardial effusion. I think it could be thought to be treated like post cardiotomy syndrome Colchicine and ibuprofen with PPI. I will order ESR and CRP as well as anticardiolipin antibody for the patient. Fever most likely postprocedural. Keep a close eye on it if the patient spikes again high-grade fever will do septic work-up and start him on antibiotics. Patient is hemodynamically stable to be sent to PCU Please note the above document was generated using voice recognition software. It may contain grammatical, syntax or spelling errors. Subjective Patient seen and examined at bedside. No acute distress, no adverse events overnight. Overall patient is feeling better compared to yesterday. He is urinating well. Denies any chest pain, no dizziness, no headache, no nausea, no vomiting. Patient did spike fever to 38.1. Review of Systems Review of Systems: All systems reviewed & are unremarkable except as noted in Subjective Physical Exam Physical Exam: Constitutional: No acute distress HEENT: EOMI, PERRLA Respiratory system: Good air entry bilaterally, no wheeze, rhonchi, no crackles CVS: S1-S2 positive, no murmurs or gallops, patient had muffled heart sound yesterday which have resolved, pericardial drain appreciated. Abdomen: Soft, nontender, nondistended, positive bowel sounds x4 Extremities: +2 pulses bilaterally radialis/ dorsalis pedis, no cyanosis, +1 edema bilateral lower extremity Neuro: Awake alert oriented x3 Psych: Normal mood and affect G/U: No Rich Skin: no rashes, warm and dry Lymphatic: no cervical or axillary lymphadenopathy Results & Data Results & Data ([facility]) Vital Signs (Past 12 Hours) Vital Signs Temp Pulse Resp BP Pulse Ox 02/11/20 10:02 77 22 115/70 96 02/11/20 10:00 37.5 C 79 21 95 02/11/20 09:02 88 14 114/76 94 02/11/20 09:00 92 H 17 94 02/11/20 08:02 37.6 C H 92 H 23 126/73 94 02/11/20 08:00 37.6 C H 89 22 95 02/11/20 07:02 92 H 18 117/78 95 02/11/20 06:40 83 22 95 02/11/20 06:02 88 22 137/78 95 02/11/20 06:00 84 20 94 02/11/20 05:02 89 19 129/77 95 02/11/20 05:00 95 H 22 94 02/11/20 04:50 90 22 94 02/11/20 04:40 91 H 25 H 95 02/11/20 04:30 93 H 20 96 02/11/20 04:20 38.0 C H 94 H 26 H 95 02/11/20 04:02 38 C H 102 H 27 H 136/84 96 02/11/20 03:02 91 H 27 H 132/81 96 02/11/20 03:00 92 H 25 H 95 02/11/20 02:02 94 H 24 133/78 95 02/11/20 02:00 97 H 27 H 95 02/11/20 01:02 101 H 19 131/80 95 02/11/20 00:02 38.1 C H 107 H 23 142/86 H 96 02/11/20 00:00 95 H 25 H 96 02/10/20 23:30 96 H 28 H 96 02/10/20 23:27 104 H 02/10/20 23:01 38.1 C H 101 H 24 140/89 97 02/10/20 23:00 101 H 24 97 02/11/20 04:37 02/11/20 04:37 Coding Level of Care Code 89166 Subseq Hosp Care Lvl 3 Diagnoses Pericardial effusion I31.3 KEYS (dyspnea on exertion) R06.00
[2020-02-11] MEDS ORDERED: ACETAMINOPHEN 325 MG TAB PO PRN (10:52)
--- NOTE | 2020-02-11 11:24 | XCELERA ---
[id number]
[2020-02-11] MEDS: PANTOprazole 40 MG TAB PO SCH (12:21)
--- NOTE | 2020-02-11 14:00 | Cardiology Progress Note ---
Date of Service February 11, 2020 Assessment & Plan (1) Pericardial effusion: 2. 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 Prior diagonal perforation 4. Anemia 5. Left pleural effusion Blood pressure stable. Heart rate has decreased. Diuresing with improved lower extremity edema, weight down more than 2 kg and suspect secondary to improved hemodynamics Pericardial drain output has decreased during the day today and appears more serosanguineous Repeat echo reviewed. Trivial residual pericardial effusion. IVC now flat. On echo does appear to have a new left pleural effusion Hemoglobin stable For now plan to keep pericardial drain placed another day Presently waiting towards repeat trial of conservative management with frequent surveillance imaging over attempts at embolization or pericardial window. Continue DAPT now with clopidogrel and aspirin. Continue statin Continue to hold off on antihypertensives Start colchicine today From a cardiac standpoint okay with transfer to PCU. Admission and Anticipated Discharge Date Admission Date: February 10, 2020 Subjective Feeling better today when he came in. Minimal chest pain. Breathing still a little short when he takes a deep breath in. Reports frequent urination Negative additional 250 overnight. Minimal drain output thus far during day today Telemetry reviewedsinus rhythm, heart rate now down to the 80s. Review of Systems Review of Systems: All systems reviewed & are unremarkable except as noted in HPI & below Physical Exam Physical Exam: General: Comfortable, no acute distress HEENT: Sclerae anicteric, mucous membranes moist Lungs: Clear, decreased breath sounds at left base Cardiac: Regular rate and rhythm, no murmurs. Drain in place, no surrounding erythema. Fluid draining red but dial brusher in color than yesterday Abdomen: Soft, nontender, nondistended, positive bowel sounds. Extremities: Warm, well perfused, trace residual edema. Right ulnar artery acce ss site with no ecchymosis, hematoma. Distal pulse and sensation intact. Skin: No rashes or lesions. Neuro: Nonfocal Psych: Alert orient x3, normal affect and mood Results & Data ([facility]) Vital Signs (Past 12 Hours) Vital Signs Temp Pulse Resp BP Pulse Ox 02/11/20 10:02 77 22 115/70 96 02/11/20 10:00 99.5 F 79 21 95 02/11/20 09:02 88 14 114/76 94 02/11/20 09:00 92 H 17 94 02/11/20 08:02 99.7 F H 92 H 23 126/73 94 02/11/20 08:00 99.7 F H 89 22 95 02/11/20 07:02 92 H 18 117/78 95 02/11/20 06:40 83 22 95 02/11/20 06:02 88 22 137/78 95 02/11/20 06:00 84 20 94 02/11/20 05:02 89 19 129/77 95 02/11/20 05:00 95 H 22 94 02/11/20 04:50 90 22 94 02/11/20 04:40 91 H 25 H 95 02/11/20 04:30 93 H 20 96 02/11/20 04:20 100.4 F H 94 H 26 H 95 02/11/20 04:02 100.4 F H 102 H 27 H 136/84 96 02/11/20 03:02 91 H 27 H 132/81 96 02/11/20 03:00 92 H 25 H 95 02/11/20 02:02 94 H 24 133/78 95 02/11/20 02:00 97 H 27 H 95 PG Care Time/CCT Total # of Minutes Spent Total Time Spent with Patient: Total time spent is greater than 50% in coordination of care (as documented) at patient's floor/unit and/or counseling patient: Coding Level of Care Code 11489 Subseq Hosp Care Lvl 3 Diagnoses Pericardial effusion I31.3
[2020-02-11] MEDS: COLCHICINE 0.6 MG TAB PO SCH ×2 (15:15→20:44)
--- NOTE | 2020-02-11 15:22 | Internal Medicine Consult Note ---
Date of Consultation February 11, 2020 Assessment & Plan (1) Pericardial effusion: Patient is admitted under cardio for a recurrent pericardial effusion, S/P cardiac cath and staged PCI. Currently being drained, and patient is improving. Will continue to monitor, patient remains undecided if he wants a pericardial window. will continue atorvastatin, colchicine, aspirin, clopidohrel for his CAD treatment (2) CAD (coronary artery disease): as stated above. History of Present Illness Reason for Consultation: medical management Attending Physician: Reynaldo Jefferson MD History of Present Illness 72-year-old male with past medical history of being recently treated here in November for for an NSTEMI status post heart cath x2 and PCI x4 then in ICU following PCI to LAD x1 and PCI to proximal first diagonal x1 with complications of pericardial effusion with tamponade secondary to distal wire perforation requiring pericardiocentesis with pericardial drain. Patient had underwen an cath on 12/02 with PCI RCA x1 and right posterior AV branch x1; 12/04 underwent PCI to LAD x1 and PCI to proximal first diagonal x1. Complicated by perf of small diagonal with pericardial effusion This was ultimately drained and patient was discharged. Patient reports that he never felt 100 percent after discharge. He initally though did feel as though he was improving his endurance, but would then get intermittent SOB duiing activity. He decided to come back to the ER where anothere pericardial effusion was found. This is being drained. patient is undecided if he wants a pericardial window or if he wants to monitor this closely as an outpatient. Patient though if feeling better today. Allergies Allergy/AdvReac Type Severity Reaction Status Date / Time No Known Allergies Allergy Verified 01/27/20 11:50 Home Medications Home Medications Medication Instructions Recorded Confirmed Type activated charcoal [CharcoCaps] 0 mg PO DAILY PRN 12/02/19 01/27/20 History multivitamin 1 tab PO DAILY 12/02/19 01/27/20 History aspirin 81 mg PO DAILY #30 tab 12/08/19 01/27/20 Rx atorvastatin 40 mg tablet 40 mg PO DAILY #90 tab 12/16/19 01/27/20 Rx lisinopril 2.5 mg tablet 2.5 mg PO DAILY #90 tab 12/16/19 01/27/20 Rx metoprolol tartrate 25 mg tablet 12.5 mg PO BID #90 tab 12/16/19 01/27/20 Rx prasugrel 10 mg tablet 10 mg PO DAILY #90 tab 01/27/20 01/27/20 Rx Patient History Medical History Chest pain NSTEMI (non-ST elevated myocardial infarction) Surgical History History of heart artery stent Family History Mother Hypertension Myocardial infarction Brother Hypertension Myocardial infarction Sister Hypertension Father Myocardial infarction Denies family history of Ovarian cancer Prostate cancer Diabetes Breast cancer Colorectal cancer Social History Smoking Status: Never smoker Second Hand Exposure: No; Hx Alcohol Use: No Hx Substance Use: No Preferred Language: South African Communication Ability: Effective Workforce Consultant Required: No Beliefs That Will Affect Care: None marital status: Current Living Situation: Spouse current occupational status: employed 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 Other Information That Helps Us Care for You: No Feels Safe at Home: Yes Safety Concerns: Feels Safe At This Time caffeine: Yes (tea ) Dental Care, Regularly: Yes Physical Activity Frequency: 5-6 Times per Week Seatbelt Use: sometimes Sunscreen Use: No Review of Systems Review of Systems: All systems reviewed & are unremarkable except as noted in HPI & below Physical Exam Constitutional: WD/WN, vitals as above well developed Eyes: PERRL, conjunctivae normal, anicteric sclerae ENMT: external ear and nose normal, oropharynx normal Neck: trachea midline, no thyromegaly Respiratory: normal respiratory effort, lungs clear to auscultation Cardiovascular: RRR, no murmur, no edema (drain noted on left anterior chest) Gastrointestinal (Abdomen): normal bowel sounds, soft, nontender, no hepatosplenomegaly Musculoskeletal: no cyanosis or clubbing, extremities motor strength 5/5 Skin: no rashes, warm and dry Neurologic: PERRL, EOMI, accommodation nl, no face palsy, no dysarthria Psychiatric: A+Ox3, euthymic affect Lymphatic: no cervical or axillary lymphadenopathy Results & Data ([facility]) Vital Signs (Past 12 Hours) Vital Signs Temp Pulse Resp BP Pulse Ox 02/11/20 10:02 77 22 115/70 96 02/11/20 10:00 37.5 C 79 21 95 02/11/20 09:02 88 14 114/76 94 02/11/20 09:00 92 H 17 94 02/11/20 08:02 37.6 C H 92 H 23 126/73 94 02/11/20 08:00 37.6 C H 89 22 95 02/11/20 07:02 92 H 18 117/78 95 02/11/20 06:40 83 22 95 02/11/20 06:02 88 22 137/78 95 02/11/20 06:00 84 20 94 02/11/20 05:02 89 19 129/77 95 02/11/20 05:00 95 H 22 94 02/11/20 04:50 90 22 94 02/11/20 04:40 91 H 25 H 95 02/11/20 04:30 93 H 20 96 02/11/20 04:20 38.0 C H 94 H 26 H 95 02/11/20 04:02 38 C H 102 H 27 H 136/84 96 PG Care Time/CCT Total # of Minutes Spent Total Time Spent with Patient: Total time spent is greater than 50% in coordination of care (as documented) at patient's floor/unit and/or counseling patient: Coding Level of Care Code 94357 Inpt Consult Level 4 Diagnoses Pericardial effusion I31.3 CAD (coronary artery disease) I25.10
[2020-02-12 07:18] LABS: Basophils # (auto) 0.01 K/uL (0-0.2); Basophils % (auto) 0.2 %; Eosinophils # (auto) 0.15 K/uL (0-0.5); Eosinophils % (auto) 2.3 %; Hematocrit (blood only) 36.8 % (42-52); Hemoglobin 11.8 g/dL (14.0-18.0); Immature Granulocytes # (auto) 0.02 K/uL (0.00-0.02); Immature Granulocytes % (auto) 0.3 %; Lymphocytes # (auto) 0.89 K/uL (1.2-3.4); Lymphocytes % (auto) 13.8 %; Mean Corpuscular Hemoglobin 27.2 pg (25-34); Mean Corpuscular Hgb Conc 32.1 g/dL (32-36); Mean Corpuscular Volume 84.8 fL (80-100); Mean Platelet Volume 11.8 fL (7.4-10.4); Monocytes # (auto) 0.81 K/uL (0.11-0.59); Monocytes % (auto) 12.6 %; Neutrophils # (auto) 4.55 K/uL (1.4-6.5); Neutrophils % (auto) 70.8 %; Platelet Count 160 K/uL (130-400); RDW Coefficient of Variation 13.7 % (11.5-14.5); RDW Standard Deviation 42.5 fL (36.4-46.3); Red Blood Count 4.34 M/uL (4.7-6.1); White Blood Count 6.43 K/uL (4.8-10.8)
[2020-02-12 07:52] LABS: BUN Creatinine Ratio 8.6 (10-20); Calcium 8.3 mg/dl (8.5-10.1); Creatinine Clr Calc Pharmacy 78.1 ml/min; Est GFR (African American) 104.5; Est GFR (Non-African American) 90.2; Potassium 4.2 mmol/L (3.5-5.1)
[2020-02-12] MEDS: COLCHICINE 0.6 MG TAB PO SCH ×2 (08:44→20:43)
[2020-02-12] MEDS: ATORVASTATIN 40 MG TAB PO SCH (08:44)
[2020-02-12] MEDS: CLOPIDOGREL BISULFATE 75 MG TAB PO SCH (08:45)
[2020-02-12] MEDS: PANTOprazole 40 MG TAB PO SCH (08:45)
[2020-02-12] MEDS: ASPIRIN 81 MG ECTAB PO SCH (08:45)
--- NOTE | 2020-02-12 13:52 | Cardiology Progress Note ---
Date of Service February 12, 2020 Assessment & Plan (1) Pericardial effusion: 2. 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 Prior diagonal perforation 4. Anemia 5. Left pleural effusion Blood pressure stable. Heart rate has decreased from admission. Impressive diuresis since admission. Recorded weight down 7 kg. Lower extremity edema resolved. Minimal pericardial drain output over last 24 hours. Unable to drain any additional fluid manually Hemoglobin stable For now plan to keep pericardial drain placed another day Repeat echo in a.m.if no significant reaccumulation of pericardial fluid will pull drain and continue to watch At this point leaning against transfer for pericardial window unless significant reaccumulation of fluid Continue DAPT now with clopidogrel and aspirin. Continue statin Continue to hold off on antihypertensives Continue colchicine Admission and Anticipated Discharge Date Admission Date: February 10, 2020 Subjective Feeling well. Minimal chest pain. Of walking around room Minimal drain output overnight Telemetry reviewedsinus rhythm, heart rate to 80s Review of Systems Review of Systems: All systems reviewed & are unremarkable except as noted in HPI & below Physical Exam Physical Exam: General: Comfortable, no acute distress HEENT: Sclerae anicteric, mucous membranes moist Lungs: Clear, decreased breath sounds at left base Cardiac: Regular rate and rhythm, no murmurs. Drain in place, no surrounding erythema. Fluid draining red but bin packer in color than with initial pericardiocentesis Abdomen: Soft, nontender, nondistended, positive bowel sounds. Extremities: Warm, well perfused, no edema. Right ulnar artery access site with no ecchymosis, hematoma. Distal pulse and sensation intact. Skin: No rashes or lesions. Neuro: Nonfocal Psych: Alert orient x3, normal affect and mood Results & Data ([facility]) Vital Signs (Past 12 Hours) Vital Signs Temp Pulse Resp BP Pulse Ox 02/12/20 12:04 97.3 F L 02/12/20 12:01 76 16 106/70 97 02/12/20 07:08 97.5 F L 81 16 123/76 94 02/12/20 06:21 94 02/12/20 04:03 98.1 F 79 20 122/67 94 PG Care Time/CCT Total # of Minutes Spent Total Time Spent with Patient: Total time spent is greater than 50% in coordination of care (as documented) at patient's floor/unit and/or counseling patient: Coding Level of Care Code 44951 Subseq Hosp Care Lvl 3 Diagnoses Pericardial effusion I31.3
--- NOTE | 2020-02-12 16:54 | Hospitalist Progress Note ---
Date of Service February 12, 2020 Assessment & Plan (1) Pericardial effusion: Patient is admitted under the cardiology service for a recurrent pericardial effusion with early tamponade. He had a pericardial effusion after a complication of a diagonal perforation resulting cardiac tamponade requiring emergent pericardiocentesis during a catheterization in 11/2019. Since that time, he is developed progressively worsening shortness of breath and lower extremity edema. Was found to have very large pericardial effusion with early tamponade physiology on echocardiogram in the cardiology office on 02/09 and was sent emergently to the hospital for drainage. Had 1.5 L of bloody fluid drained by pericardiocentesis on 02/09 with pericardial drain left in place Had complete resolution of pericardial effusion by echocardiogram. No fluid draining out any further as of this morning as per cardiology Keep drain in place another day Plan to repeat echocardiogram in the morning and if no significant reaccumulation of fluid, drain will get pulled May end up needing transfer for pericardial window if has significant reaccumulation of fluid -ESR within normal limits and CRP very minimally elevated, Anticardiolipin antibodies were drawn and pending -Continue colchicine 0.6 mg p.o. twice daily (2) CAD (coronary artery disease): With multivessel CAD status post multivessel stenting in a staged procedure on 12/02 and 12/05/2019 with deployment of LIMA in the distal RCA and right posterior AV branch followed by LIMA to the mid LAD and proximal first diagonal on subsequent catheterization. With procedure complication with perforation of first diagonal as above resulting in pericardial effusion. -Repeat cardiac catheterization this admission shows patent stents and unchanged severe disease in a small circumflex/OM1 -Continue dual antiplatelet therapy which has been changed to this admission to aspirin and Plavix, discontinued Effient -Continue atorvastatin Home lisinopril and metoprolol are on hold (3) Anemia: Hemoglobin mildly low at 11.8, normocytic. Hemoglobin is improved from previous admission Likely secondary to chronic blood loss from pericardial bloody effusion Follow CBC (4) Pleural effusion: Pleural effusion noted by cardiology on echocardiogram Had significant volume overloaded and has now auto diuresed 8 kg of body weight in the last 2 days since draining pericardial effusion Was likely secondary to diastolic dysfunction from tamponade Procalcitonin was negative -Clinically improved, not hypoxic Follow chest x-ray if respiratory status worsens (5) Volume overload: As above, secondary to pericardial effusion and tamponade Now much improved Follow I's and O's, daily weights (6) DVT prophylaxis: No DVT prophylaxis due to bloody drainage and presence of DAPT Was placed on Protonix for GI prophylaxis when in the ICU-this can be discontinued upon discharge Disposition-continued stay Hospitalist service will follow along Admission and Anticipated Discharge Date Admission Date: February 10, 2020 Subjective Patient feeling much better today. Has some twinges of pain in his chest with deep breaths he thinks from the pericardial catheter. He reports Dr. Jefferson flushed his pericardial drain with saline earlier as it was not draining at all and now a bunch of fluid came out-he is unsure if this was all saline or not. He feels much less short of breath and his lower extremity swelling is almost completely resolved at this point. He is amazed that he is lost 16 pounds in the last couple of days. His appetite is improving. He reports no medical history at all except he thinks that he might of had Lyme disease a few years ago for which he took essential oil cinnamon and the swelling in his elbows improved. Review of Systems Review of Systems: All systems reviewed & are unremarkable except as noted in HPI & below No constipation or diarrhea, no trouble with urination Physical Exam Constitutional: WD/WN, vitals as above Eyes: + anicteric sclerae Neck: trachea midline, no thyromegaly Respiratory: normal respiratory effort; no labored breathing Auscultation: + diminished lung sounds (At the bases bilaterally); no crackles, no rhonchi and no wheezes Cardiovascular: Rate/Rhythm: regular rate and regular rhythm Heart Sounds: no murmur Extremities: + edema (Trace pitting edema of the feet and ankles b ilaterally) Chest (Breasts): Chest: + abnormal inspection of chest (Pericardial drain coming from left side of chest with serosanguineous fluid in the drain bag) Gastrointestinal (Abdomen): normal bowel sounds, soft, nontender, no hepatosplenomegaly Musculoskeletal: Extremities: extremities normal to inspection; no cyanosis and no clubbing Skin: no rashes, warm and dry Neurologic: moves all extremities and awake; no focal motor deficits Psychiatric: A+Ox3, euthymic affect Lymphatic: no lymphedema Results & Data Results & Data ([facility]) Vital Signs (Past 12 Hours) Vital Signs Temp Pulse Pulse Resp BP Pulse Ox 02/12/20 14:57 36.8 C 73 20 121/75 92 02/12/20 12:04 36.3 C L 02/12/20 12:01 76 16 106/70 97 02/12/20 07:08 36.4 C L 81 16 123/76 94 02/12/20 06:21 94 Laboratory Results 02/12/20 02/12/20 Range/Units 06:55 06:55 WBC 6.43 (4.8-10.8) K/uL RBC 4.34 L (4.7-6.1) M/uL Hgb 11.8 L (14.0-18.0) g/dL Hct 36.8 L (42-52) % MCV 84.8 (80-100) fL MCH 27.2 (25-34) pg MCHC 32.1 (32-36) g/dL RDW Std Deviation 42.5 (36.4-46.3) fL RDW Coeff of Mary 13.7 (11.5-14.5) % Plt Count 160 (130-400) K/uL MPV 11.8 H (7.4-10.4) fL Immature Gran % (Auto) 0.3 % Neut % (Auto) 70.8 % Lymph % (Auto) 13.8 % [place] % (Auto) 12.6 % Eos % (Auto) 2.3 % Baso % (Auto) 0.2 % Neut # (Auto) 4.55 (1.4-6.5) K/uL Lymph # (Auto) 0.89 L (1.2-3.4) K/uL [place] # (Auto) 0.81 H (0.11-0.59) K/uL Eos # (Auto) 0.15 (0-0.5) K/uL Baso # (Auto) 0.01 (0-0.2) K/uL Immature Gran # (Auto) 0.02 (0.00-0.02) K/uL Sodium 140 (136-145) mmol/L Potassium 4.2 (3.5-5.1) mmol/L Chloride 108 H (98-107) mmol/L Carbon Dioxide 27 (21-32) mmol/L Anion Gap 5.0 (3-11) BUN 8 (7-18) mg/dl Creatinine 0.93 (0.6-1.4) mg/dl Est Cr Clr Drug Dosing 78.1 ml/min Est GFR ( Amer) 104.5 Est GFR (Non-Af Amer) 90.2 BUN/Creatinine Ratio 8.6 L (10-20) Glucose 89 (70-99) mg/dl Calcium 8.3 L (8.5-10.1) mg/dl PG Care Time/CCT Total # of Minutes Spent Total Time Spent with Patient: Total time spent is greater than 50% in coordination of care (as documented) at patient's floor/unit and/or counseling patient: Coding Level of Care Code 88250 Subseq Hosp Care Lvl 2 Diagnoses Pericardial effusion I31.3 CAD (coronary artery disease) I25.10 Anemia D64.9 Pleural effusion J90 Volume overload E87.70 DVT prophylaxis Z29.9
[2020-02-13 06:34] LABS: Hematocrit (blood only) 38.6 % (42-52); Hemoglobin 12.5 g/dL (14.0-18.0)
[2020-02-13] MEDS: COLCHICINE 0.6 MG TAB PO SCH ×2 (08:00→20:30)
[2020-02-13] MEDS: ATORVASTATIN 40 MG TAB PO SCH (08:01)
[2020-02-13] MEDS: PANTOprazole 40 MG TAB PO SCH (08:01)
[2020-02-13] MEDS: ASPIRIN 81 MG ECTAB PO SCH (08:01)
[2020-02-13] MEDS: CLOPIDOGREL BISULFATE 75 MG TAB PO SCH (08:01)
--- NOTE | 2020-02-13 12:40 | XCELERA ---
[id number]
--- NOTE | 2020-02-13 14:17 | Hospitalist Progress Note ---
Date of Service February 13, 2020 Assessment & Plan (1) Pericardial effusion: Patient is admitted under the cardiology service for a recurrent pericardial effusion with early tamponade. He had a pericardial effusion after a complication of a diagonal perforation resulting cardiac tamponade requiring emergent pericardiocentesis during a catheterization in 11/2019. Since that time, he is developed progressively worsening shortness of breath and lower extremity edema. Was found to have very large pericardial effusion with early tamponade physiology on echocardiogram in the cardiology office on 02/09 and was sent emergently to the hospital for drainage. Had 1.5 L of bloody fluid drained by pericardiocentesis on 02/09 with pericardial drain left in place Had complete resolution of pericardial effusion by echocardiogram. drain pulled today plan for d/c tomorrow -ESR within normal limits and CRP very minimally elevated, Anticardiolipin antibodies were drawn and pending -Continue colchicine 0.6 mg p.o. twice daily (2) CAD (coronary artery disease): With multivessel CAD status post multivessel stenting in a staged procedure on 12/02 and 12/05/2019 with deployment of LIMA in the distal RCA and right posterior AV branch followed by LIMA to the mid LAD and proximal first diagonal on subsequent catheterization. With procedure complication with perforation of first diagonal as above resulting in pericardial effusion. -Repeat cardiac catheterization this admission shows patent stents and unchanged severe disease in a small circumflex/OM1 -Continue dual antiplatelet therapy which has been changed to this admission to aspirin and Plavix, discontinued Effient -Continue atorvastatin Home lisinopril and metoprolol are on hold, BP a little high today (3) Anemia: Hemoglobin stable at 12.5, normocytic. Hemoglobin is improved from previous admission Likely secondary to chronic blood loss from pericardial bloody effusion Follow CBC (4) Pleural effusion: Pleural effusion noted by cardiology on echocardiogram Had significant volume overloaded and has now auto diuresed 8 kg of body weight in the last 2 days since draining pericardial effusion Was likely secondary to diastolic dysfunction from tamponade Procalcitonin was negative -Clinically improved, not hypoxic (5) Volume overload: As above, secondary to pericardial effusion and tamponade Now much improved Follow I's and O's, daily weights (6) DVT prophylaxis: No DVT prophylaxis due to bloody drainage and presence of DAPT Was placed on Protonix for GI prophylaxis when in the ICU-this can be discontinued upon discharge Disposition-continued stay Hospitalist service will follow along Admission and Anticipated Discharge Date Admission Date: February 10, 2020 Subjective patient feeling well, only has a twinge of discomfort with the pericardial drain when standing up to walk he has no fever/chills, no dyspnea, no cough had echo today, Dr. Jefferson will follow up with the read and will decide on pulling drain even if it gets pulled we will keep overnight tonight he is eating well, making urine, moving his bowels he is hopeful for discharge tomorrow Review of Systems Review of Systems: All systems reviewed & are unremarkable except as noted in Subjective Physical Exam Constitutional: WD/WN, vitals as above Eyes: PERRL, conjunctivae normal, anicteric sclerae ENMT: external ear and nose normal, oropharynx normal Neck: trachea midline, no thyromegaly Respiratory: normal respiratory effort, lungs clear to auscultation Cardiovascular: RRR, no murmur, no edema Gastrointestinal (Abdomen): normal bowel sounds, soft, nontender, no hepatosplenomegaly Musculoskeletal: no cyanosis or clubbing, extremities motor strength 5/5 Skin: no rashes, warm and dry Neurologic: patellar DTR's 2+ bilat, sensation intact and PERRL, EOMI, accommodation nl, no face palsy, no dysarthria Psychiatric: A+Ox3, euthymic affect Lymphatic: no cervical or axillary lymphadenopathy Results & Data Results & Data ([facility]) Vital Signs (Past 12 Hours) Vital Signs Temp Pulse Pulse Pulse Resp BP Pulse Ox 02/13/20 11:01 36.8 C 86 16 115/77 96 02/13/20 08:00 71 02/13/20 06:55 36.3 C L 65 16 128/75 95 02/13/20 02:41 36.7 C 77 16 138/83 93 Laboratory Results Laboratory Results - last 24 hr 02/13/20 06:01 Hgb 12.5 L Hct 38.6 L Medications Administered Current Inpatient Medications Acetaminophen (Acetaminophen 325 Mg Tab) 650 mg PO Q4H PRN PRN Reason: Temp > 100.4 F Stop: 03/12/20 10:51 Aspirin (Aspirin 81 Mg Ectab) 81 mg PO DAILY T[facility]OR Stop: 03/12/20 08:59 Last Admin: 02/13/20 08:01 Dose: 81 mg Documented by: Atorvastatin Calcium (Atorvastatin 40 Mg Tab) 40 mg PO DAILY TAYLOR Stop: 03/12/20 08:59 Last Admin: 02/13/20 08:01 Dose: 40 mg Documented by: Clopidogrel Bisulfate (Clopidogrel Bisulfate 75 Mg Tab) 75 mg PO QAM [facility] Stop: 03/12/20 08:59 Last Admin: 02/13/20 08:01 Dose: 75 mg Documented by: Colchicine (Colchicine 0.6 Mg Tab) 0.6 mg PO BID [facility] Stop: 03/12/20 13:49 Last Admin: 02/13/20 08:00 Dose: 0.6 mg Documented by: Sodium Chloride (Nss 1000ml) 1,000 mls @ 0 mls/hr IV .Q0M [facility] Stop: 03/11/20 18:14 Ondansetron HCl (Ondansetron Inj 2 Mg/Ml 2 Ml Vial) 4 mg IV Q6H PRN PRN Reason: Nausea And Vomiting Stop: 03/11/20 18:03 Pantoprazole Sodium (Pantoprazole 40 Mg Tab) 40 mg PO QAM [facility] Stop: 03/12/20 10:59 Last Admin: 02/13/20 08:01 Dose: 40 mg Documented by: PG Care Time/CCT Total # of Minutes Spent Total Time Spent with Patient: Total time spent is greater than 50% in coordination of care (as documented) at patient's floor/unit and/or counseling patient: Coding Level of Care Code 83959 Subseq Hosp Care Lvl 2 Diagnoses Pericardial effusion I31.3 CAD (coronary artery disease) I25.10 Anemia D64.9 Pleural effusion J90 Volume overload E87.70 DVT prophylaxis Z29.9
--- NOTE | 2020-02-13 15:25 | Hospitalist Progress Note ---
Date of Service February 13, 2020 Assessment & Plan (1) Pericardial effusion with cardiac tamponade: Resolving/resolved. POD #3 s/p pericardiocentesis by Dr Reynaldo Jefferson. Removal of 1485 cc of bloody pericardial fluid during the procedure. Pericardial drain left in place post-procedure. Pericardial fluid culture negative. Serial echos since the procedure have not shown reaccumulating fluid and H/H remain stable. Defer management of pericardial drain to Dr Jefferson. Likely slow accumulation of fluid since earlier this summer. (2) Acute diastolic CHF (congestive heart failure): Acute diastolic CHF 2nd to cardiac tamponade. Impressive auto-diuresis since his pericardiocentesis with 9kg of total weight loss. CHF resolved. (3) CAD (coronary artery disease): 02/10/2020 - repeat coronary angiography by Dr Jefferson revealed "patent LAD, diagonal and RCA stents. No significant contrast extravasation noted. Unchanged severe disease in small circumflex/OM1 (OM 70-80% proximal stenosis. 60% stenosis in small circumflex just after takeoff of OM1)" Continue aspirin, plavix, lipitor. H/H remain stable in face of pericardial effusion. Defer resumption of beta sindhu to Dr Jefferson. (4) Pleural effusion: Suspect due to volume overload in setting of cardiac tamponade. O2 sats wnl. No significant symptoms at this point. Will obtain cxr in am to reassess. (5) Anemia: H/H stable over the last 48 hours. Cont to trend. Anemia 2nd to impressive pericardial effusion. (6) Hypercholesterolemia: Cont statin (7) DVT prophylaxis: chemical means contraindicated ambulation and SCDs will cont to follow Admission and Anticipated Discharge Date Admission Date: February 10, 2020 Subjective patient feeling overall pretty good with no dyspnea on exertion, substernal chest pain or orthopnea. LE edema improved. still feels swollen in abdomen. minimal discomfort related to his pericardial drain. eating well. tele overnight w/ NSR. Review of Systems Constitutional: no fever Respiratory: no cough and no dyspnea Cardiovascular: no chest pain Gastrointestinal: no abdominal pain, no nausea and no vomiting Physical Exam Constitutional: well developed and well nourished; no acute distress ENMT: external ear and nose normal, oropharynx normal Respiratory: no respiratory distress Auscultation: + diminished lung sounds (bases, 1/[address] up back ); no crackles and no wheezes Cardiovascular: Rate/Rhythm: regular rate and regular rhythm Heart Sounds: normal S1 and normal S2; no murmur and no cardiac rub Vessels: posterior tibial pulses present and dorsalis pedis pulses present; no JVD Extremities: no edema Chest (Breasts): Additional Comments: pericardial drain in place Gastrointestinal (Abdomen): normal bowel sounds, soft, nontender, no hepatosplenomegaly Psychiatric: A+Ox3, euthymic affect Results & Data Results & Data ([facility]) Vital Signs (Past 12 Hours) Vital Signs Temp Pulse Pulse Pulse Resp BP Pulse Ox 02/13/20 14:59 70 02/13/20 14:58 36.5 C 67 21 118/74 95 02/13/20 11:01 36.8 C 86 16 115/77 96 02/13/20 08:00 71 02/13/20 06:55 36.3 C L 65 16 128/75 95 Laboratory Results Laboratory Results - last 24 hr 02/13/20 06:01 Hgb 12.5 L Hct 38.6 L Diagnostic Findings echo - trivial pericardial effusion; pleural effusion on left PG Care Time/CCT Total # of Minutes Spent Total Time Spent with Patient: Total time spent is greater than 50% in coordination of care (as documented) at patient's floor/unit and/or counseling patient: Coding Level of Care Code 78778 Subseq Hosp Care Lvl 1 Diagnoses Pericardial effusion with cardiac tamponade I31.3; I31.4 Acute diastolic CHF (congestive heart failure) I50.31 CAD (coronary artery disease) I25.10 Coronary Disease-Associated Artery/Lesion type: [place] artery [place] vs. transplanted heart: [place]ze heart Associated angina: without angina Pleural effusion J90 Anemia D64.9 Anemia type: unspecified type Hypercholesterolemia E78.00 DVT prophylaxis Z29.9 (1) CAD (coronary artery disease) Coronary Disease-Associated Artery/Lesion type: [place] artery [place] vs. transplanted heart: [place] heart Associated angina: without angina Qualified Code(s): I25.10 - Atherosclerotic heart disease of [place] coronary artery without angina pectoris (2) Anemia Anemia type: unspecified type Qualified Code(s): D64.9 - Anemia, unspecified
--- NOTE | 2020-02-13 17:20 | Cardiology Progress Note ---
Date of Service February 13, 2020 Assessment & Plan (1) Pericardial effusion: 2. 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 Prior diagonal perforation 4. Anemia 5. Left pleural effusion Minimal pericardial drain output. Hemoglobin stable. Repeat echocardiogram showed unchanged, trivial pericardial effusion Pericardial drain removed this afternoon. Repeat echo in a.m.if no significant reaccumulation plan on discharge tomorrow Continue DAPT now with clopidogrel and aspirin. Continue statin Continue colchicine On discharge plan for follow-up in 1 week with repeat echocardiogram at that time. No plans for pericardial window unless reaccumulation. Appreciate hospital medicine input Admission and Anticipated Discharge Date Admission Date: February 10, 2020 Subjective Feeling well today. Up walking around room more. Denies chest pain or shortness of breath. Still with mild abdominal bloating. Lower extremity edema resolved. Telemetry reviewedsinus rhythm with no events Minimal drain output overnight Review of Systems Review of Systems: All systems reviewed & are unremarkable except as noted in HPI & below Physical Exam Physical Exam: General: Comfortable, no acute distress HEENT: Sclerae anicteric, mucous membranes moist Lungs: Lungs clear Cardiac: Regular rate and rhythm, no murmurs. Drain in place, no surrounding erythema. Fluid draining red but manager care in color than with initial pericardiocentesis Abdomen: Soft, nontender, nondistended, positive bowel sounds. Extremities: Warm, well perfused, no edema. Right ulnar artery access site with no ecchymosis, hematoma. Distal pulse and sensation intact. Skin: No rashes or lesions. Neuro: Nonfocal Psych: Alert orient x3, normal affect and mood Results & Data ([facility]) Vital Signs (Past 12 Hours) Vital Signs Temp Pulse Pulse Pulse Resp BP Pulse Ox 02/13/20 14:59 70 02/13/20 14:58 97.7 F 67 21 118/74 95 02/13/20 11:01 98.2 F 86 16 115/77 96 02/13/20 08:00 71 02/13/20 06:55 97.3 F L 65 16 128/75 95 PG Care Time/CCT Total # of Minutes Spent Total Time Spent with Patient: Total time spent is greater than 50% in tour coordinator rdination of care (as documented) at patient's floor/unit and/or counseling patient: Coding Level of Care Code 18782 Subseq Hosp Care Lvl 3 Diagnoses Pericardial effusion I31.3
--- NOTE | 2020-02-13 18:01 | XRay Report ---
XR chest 2V PA/lateral HISTORY: pleural effusions, interval change COMPARISON: Chest 02/10/2020. FINDINGS: Small bilateral pleural effusions persist. Left basilar linear densities favor subsegmental atelectasis. This has improved. The upper lung zones are clear. The right basilar densities have res olved. The heart is normal in size. A coronary artery stent is noted. No pneumothorax. IMPRESSION: 1. No change in the small bilateral pleural effusions. 2. The pulmonary edema and bibasilar densities have almost completely resolved in the interval. ACT 112: Negative or not required by law. Electronically signed by: Erik Teresa M.D. 02/13/2020 5:59 PM
[2020-02-14 07:23] LABS: Hematocrit (blood only) 38.1 % (42-52); Hemoglobin 12.4 g/dL (14.0-18.0); Mean Corpuscular Hgb Conc 32.5 g/dL (32-36); Mean Corpuscular Volume 82.8 fL (80-100); Mean Platelet Volume 11.2 fL (7.4-10.4); Platelet Count 203 K/uL (130-400); RDW Coefficient of Variation 13.6 % (11.5-14.5); RDW Standard Deviation 41.1 fL (36.4-46.3); White Blood Count 6.76 K/uL (4.8-10.8)
[2020-02-14] MEDS: ATORVASTATIN 40 MG TAB PO SCH (07:32)
[2020-02-14] MEDS: CLOPIDOGREL BISULFATE 75 MG TAB PO SCH (07:32)
[2020-02-14] MEDS: PANTOprazole 40 MG TAB PO SCH (07:32)
[2020-02-14] MEDS: COLCHICINE 0.6 MG TAB PO SCH (07:32)
[2020-02-14] MEDS: ASPIRIN 81 MG ECTAB PO SCH (07:32)
[2020-02-14 07:56] LABS: BUN Creatinine Ratio 10.7 (10-20); Calcium 8.7 mg/dl (8.5-10.1); Creatinine Clr Calc Pharmacy 78.1 ml/min; Est GFR (African American) 104.5; Est GFR (Non-African American) 90.2; Potassium 3.8 mmol/L (3.5-5.1)
--- NOTE | 2020-02-14 11:22 | XCELERA ---
[id number]
--- NOTE | 2020-02-14 11:34 | Cardiology Progress Note ---
Date of Service February 14, 2020 Assessment & Plan (1) Pericardial effusion: 2. 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 Prior diagonal perforation 4. Anemia 5. Left pleural effusion No recurrent pericardial effusion on repeat echocardiogram. Patient feeling well today and okay for discharge. Continue DAPT now with clopidogrel and aspirin. Continue statin Continue colchicine Follow-up with me next week with repeat echocardiogram. [facility] medicine input Admission and Anticipated Discharge Date Admission Date: February 10, 2020 Subjective Feeling well today. No chest pain. Telemetry reviewedno events. Echo reviewedno recurrent pericardial effusion Review of Systems Review of Systems: All systems reviewed & are unremarkable except as noted in HPI & below Physical Exam Physical Exam: General: Comfortable, no acute distress HEENT: Sclerae anicteric, mucous membranes moist Lungs: Lungs clear Cardiac: Regular rate and rhythm, no murmurs. No erythema around drain site. Abdomen: Soft, nontender, nondistended, positive bowel sounds. Extremities: Warm, well perfused, no edema. Skin: No rashes or lesions. Neuro: Nonfocal Psych: Alert orient x3, normal affect and mood Results & Data ([facility]) Vital Signs (Past 12 Hours) Vital Signs Temp Pulse Pulse Resp BP Pulse Ox 02/14/20 10:55 97.5 F L 69 16 136/87 99 02/14/20 08:00 56 L 02/14/20 07:03 98.1 F 62 16 129/75 95 02/14/20 02:36 98.2 F 72 16 130/83 95 PG Care Time/CCT Total # of Minutes Spent Total Time Spent with Patient: Total time spent is greater than 50% in coordination of care (as documented) at patient's floor/unit and/or counseling patient: Coding Level of Care Code 47416 Subseq Hosp Care Lvl 3 Diagnoses Pericardial effusion I31.3
--- NOTE | 2020-02-14 22:20 | Discharge Summary ---
Date of Service February 14, 2020 Admission HPI Per Admitting Provider Mr. King is a 60-year-old male with a history of Multivessel CAD s/p Multivessel Stenting (in a staged procedure 12/03/2019 and 12/05/2019) - complicated by D1 Perforation resulting in Cardiac Tamponade requiring Emergent Pericardiocentesis, Anemia, and Hypercholesterolemia -- who presented to outpatient cardiology office today acutely complaining of ongoing KEYS which has significantly worsened over the past week. Dyspnea associated with weight gain and LE edema. Underwent repeat echo which showed a very large pericardial effusion with early tamponade physiology. Prior Cardiac History: Patient presented to [facility] late in the evening of 12/02/2019 with progressive angina pectoris x 2 weeks and was noted to have dynamic EKG changes and an elevated Troponin I Level (peak 0.6). An urgent Cardiac Catheterization was performed was performed on 12/03/2019 which noted 2 culprit lesions involving the Distal RCA and Right PAVB. He underwent deployment of a LIMA placed in the Distal RCA (3.5x18 [place]), and a LIMA deployed in the Right PAV (2.5x12 [place]). Patient was also noted to have a high-grade LAD and D1 stenoses -- so he was kept in the hospital for a staged procedure on 12/05/2019 (mid LAD 2.5 x 15 [place], Diagonal 2.25 x 18 [place]). Unfortunately, that procedure was complicated by a diagonal branch perforation which resulted in cardiac tamponade and an emergent pericardiocentesis. This was complicated by Anemia with a Hgb of 9.4 gm/dl. The patient made a slow recovery following that event. Patient was discharged from the hospital on 12/08/2019. Principal Diagnosis Pericardial effusion causing tamponade Discharge Exam Constitutional WD/WN, vitals as above Eyes PERRL, conjunctivae normal, anicteric sclerae ENMT external ear and nose normal, oropharynx normal Neck trachea midline, no thyromegaly Respiratory normal respiratory effort, lungs clear to auscultation Cardiovascular RRR, no murmur, no edema Gastrointestinal (Abdomen) normal bowel sounds, soft, nontender, no hepatosplenomegaly Musculoskeletal no cyanosis or clubbing, extremities motor strength 5/5 Skin no rashes, warm and dry Neurologic patellar DTR's 2+ bilat, sensation intact and PERRL, EOMI, accommodation nl, no face palsy, no dysarthria Psychiatric A+Ox3, euthymic affect Lymphatic no cervical or axillary lymphadenopathy Discharge Data Allergies Allergy/AdvReac Type Severity Reaction Status Date / Time No Known Allergies Allergy Verified 02/16/20 14:01 Consultations 02/10/20 14:49 ED Decision to Admit Stat 02/10/20 19:14 Consult Pool Hall Inspector Routine 02/11/20 14:02 Consult Hospitalist Routine Procedures Performed Operation Date: 02/10/20 15:00 Actual Procedures s Cineradiography w/Routine Exam - Luis Jefferson MD p Cath, Left with Cors and Vent - Luis Jefferson MD p Pericardiocentesis Initial - Luis Jefferson MD Ordered Studies 02/10/20 15:01 CL Cath Imgs for PACS use only Stat Hospital Course (1) Pericardial effusion: Patient is admitted under the cardiology service for a recurrent pericardial effusion with early tamponade. He had a pericardial effusion after a complication of a diagonal perforation resulting cardiac tamponade requiring emergent pericardiocentesis during a catheterization in 11/2019. Since that bridgette e, he is developed progressively worsening shortness of breath and lower extremity edema. Was found to have very large pericardial effusion with early tamponade physiology on echocardiogram in the cardiology office on 02/09 and was sent emergently to the hospital for drainage. Had 1.5 L of bloody fluid drained by pericardiocentesis on 02/09 with pericardial drain left in place Had complete resolution of pericardial effusion by echocardiogram. drain pulled 02/12 cleared by discharge by Dr. Jefferson, will follow up closely in a week with repeat echocardiogram -ESR within normal limits and CRP very minimally elevated, Anticardiolipin antibodies were drawn and pending -Continue colchicine 0.6 mg p.o. twice daily (2) CAD (coronary artery disease): With multivessel CAD status post multivessel stenting in a staged procedure on 12/02 and 12/05/2019 with deployment of LIMA in the distal RCA and right posterior AV branch followed by LIMA to the mid LAD and proximal first diagonal on subsequent catheterization. With procedure complication with perforation of first diagonal as above resulting in pericardial effusion. -Repeat cardiac catheterization this admission shows patent stents and unchanged severe disease in a small circumflex/OM1 -Continue dual antiplatelet therapy which has been changed to this admission to aspirin and Plavix, discontinued Effient -Continue atorvastatin resume Lisinopril 2.5mg daily hold metoprolol due to HR in the 60's (3) Anemia: Hemoglobin stable, normocytic. Hemoglobin is improved from previous admission Likely secondary to chronic blood loss from pericardial bloody effusion Follow CBC (4) Pleural effusion: Pleural effusion noted by cardiology on echocardiogram Had significant volume overloaded and has now auto diuresed 8 kg of body weight in the last 2 days since draining pericardial effusion Was likely secondary to diastolic dysfunction from tamponade Procalcitonin was negative -Clinically improved, not hypoxic (5) Volume overload: As above, secondary to pericardial effusion and tamponade Now much improved Follow I's and O's, daily weights (6) DVT prophylaxis: chemical means contraindicated ambulation and SCDs will cont to follow Total Time Total Time Spent Total Time Spent (In Minutes): 33 minutes Total Time Includes: Examination of the Patient, Discharge Planning, Medication Reconciliation and Communication With Other Providers (Dr. Jefferson) Discharge Plan Discharge Items Patient Disposition: Home - Self-Care Reason For Visit: PERICARDIAL EFFUSION Discharge Diagnosis: Pericardial effusion Condition on Discharge: Good Activity: Resume your previous activity Non-emergency contact: Primary Care Provider and Site Reliability Engineer Call non-emergency contact if: you have any medication questions, your symptoms worsen, your pain is not controlled and you have a fever Follow-up/Referrals: Luis Jefferson MD [Physician] - 02/17/20 3:00 pm (one week with echocardiogram echo will be at 3pm and you will see Kirsty at 4pm) Bryon Phillips DO [Primary Care Provider] - 02/16/20 2:00 pm (one week) Diet: Heart Healthy Addtl Attending Provider Instructions: Medications: - PLAVIX: 75mg daily, this replaces Effient, take this with the aspirin 81mg daily - COLCHICINE: 0.6mg twice a day, this treats the pericarditis/effusion Pericardial effusion: treated with drain, output from drain greatly diminished, drain pulled on 02/12 will discharge home on Colchicine 0.6mg BID follow up with Dr. Jefferson in one week with repeat echocardiogram to check on pericardial fluid level Coronary artery disease please note that you need to stop Effient, this is replaced with Plavix continue the aspirin, continue lisinopril 2.5mg daily stopped metoprolol because your resting heart rate has been in the 50's Pending Studies at Discharge: No Stand-Alone Forms: [facility], Smoking Cessation Medications and DC Order Prescriptions: New clopidogrel 75 mg Tablet 75 mg PO QAM 30 Days Qty: 30 RF: 3 colchicine [Colcrys] 0.6 mg Tablet 0.6 mg PO BID 30 Days Qty: 60 RF: 1 Continued atorvastatin 40 mg tablet 40 mg PO DAILY Qty: 90 RF: 3 lisinopril 2.5 mg tablet 2.5 mg PO DAILY Qty: 90 RF: 3 multivitamin Tablet 1 tab PO DAILY RF: 0 activated charcoal [CharcoCaps] 260 mg Capsule 0 mg PO DAILY PRN (Reason: DETOXING PER PT.) RF: 0 aspirin 81 mg tablet,delayed release (DR/EC) 81 mg PO DAILY Qty: 30 RF: 0 Discontinued metoprolol tartrate 25 mg tablet 12.5 mg PO BID Qty: 90 RF: 3 prasugrel 10 mg tablet 10 mg PO DAILY Qty: 90 RF: 3 Discharge Orders: Discharge Order (Routine); Ordered 02/14/20 Ordered By: Paolo Guillen/Other Patient Handouts: Treatment for Pericardial Effusion, Colchicine tablets or capsules, Clopidogrel tablets Admission Data Admit Date/Time: 02/10/20 18:07 Attending Provider: Luis Jefferson Admit Provider: Luis Jefferson Primary Care Provider: Bryon Phillips Other Providers: Blair Louise ; Dex Jones ; Dariana Greenwood ; Siddharth Asher ; Richard Perkins ; Yodit Clarke Thomas E. ; Praful Marino ; Paolo Nevarez ; Katelyn Barber ; Lisa Allen ; Anastasiya Moore ; Chucho Khalil ; Crystal Short ; Vicky Barbour ; Leonard Johnson ; Paul Pennington ; Mark Gutierrez ; Kim Kumari ; Marlen Esparza ; Luis Gutierrez ; Siddharth Gonzalez ; Rene Shin ; Cecilia Thomas ; Juan Thomas ; Moustapha Yadav ; Miah Graves ; Vinay Awad ; Niko Menjivar Other Interventions: Discharge Summary Assessment (RN) Last Done: 02/14/20 11:36 Coding Level of Care Code D/C Day Management >30 mins Diagnoses Pericardial effusion I31.3 CAD (coronary artery disease) I25.10 Anemia D64.9 Anemia type: unspecified type Pleural effusion J90 Volume overload E87.70 DVT prophylaxis Z29.9
[2020-02-15 03:22] LABS: Anti Cardiolipin Ab IgG <14 GPL; Anti Cardiolipin Ab IgM <12 MPL; Anti-Cardiolipin Ab IgA <11 APL
[2020-02-15 20:22] LABS: Pericardial Fld,Total Protein 11.5 g/dL; Pericardial Fluid, Glucose 39 mg/dL
--- NOTE | 2020-02-28 08:10 | Coding Query ---
PRESENT ON ADMISSION QUERY To promote full compliance with coding requirements relating to pateint care, physician participation is requested in all cases of airline operations agent uncertainty. Please assist us with the question(s) below: Please place an X within the parenthesis (x). Coding Question: Acute Diastolic CHF was documented in one of the 02/12 PN, please clarify if it was present on admission. Thank you so much for your help! Have a great day! Acute Diastolic CHF ( ) Present On Admission (x ) Not Present On Admission Patient actually had large pericardial effusion causing some tamponade which lead to volume overload ( ) Clinically Undetermined (x ) Ruled-out again, this was volume overload due to large pericardial effusion Thank you! Jenny Barney *Definition of the present on admission (POA)-Present on admission is defined as present at the time the order for inpatient admission occurs. Conditions that develop during an outpatient encounter prior to a written order for inpatient admission (including emergency department, observation, or outpatient surgery) are considered present on admission. YAHIR
== END 2020-02-14 13:48 | disposition home or self-care (01) | DRG 287 ==
LOC: ED 14:05 → CC 14:45 → 1E 18:07 → 2S 02-11 13:43